=== PATIENT | female | born 1955 | race Caucasian/White ===

== ENCOUNTER 2023-01-15 09:51 | Outpatient (CLI) | payer MEDICARE, SELFPAY ==
[2023-01-15 11:06] LABS: EXAGEN MAILED SPECIMEN
[2023-01-15 12:19] LABS: Absolute Lymphocyte Count 2.21 X10^3/uL (0.83-4.51); Absolute Neutrophil Count 3.4 X10^3/uL (2.0-7.7); Basophil# 0.05 X10^3/uL; Basophil% 0.8 % (0-1); Eosinophil# 0.18 X10^3/uL; Eosinophils% 2.8 % (0-5); Hematocrit 40.5 % (37-47); Lymphocyte # 2.21 X10^3/ul (0.83-4.51); Lymphocyte % 34.2 % (19-41); Mean Corp Hgb Conc 32.1 g/dL (32-36); Mean Corpuscular Hgb 29.5 pg (27.0-32.0); Mean Platelet Vol. 10.6 fl (6.2-12.0); Monocyte# 0.61 X10^3/uL; Monocyte% 9.4 % (0-10); NRBC Flagged by Analyzer 0 % (0-5); Neutrophil # 3.38 X10^3/uL (2.7-7.7); Neutrophil % 52.3 % (47-70); Platelet Count 283 K/mm3 (150-450); RBC Distribution Width CV 13.8 % (11.6-14.6); RBC Distribution Width SD 47.4 fl (35.1-43.9); White Blood Count 6.5 K/mm3 (4.4-11.0)
[2023-01-15 12:24] LABS: Color, Urine Yellow (Yellow); Glucose, Dipstick Normal (Normal); Ketone-Dipstick Negative (Negative); Leukocyte Esterase-Dipstick Negative /ul (Negative); Nitrite-Dipstick Negative (Negative); Occult Blood-Urine 25 /ul (Negative); Protein-Dipstick 15 mg/dl (Negative); Specific Gravity, Urine 1.015 (1.002-1.030); Urine Bilirubin Dipstick Negative (Negative); Urine Clarity Sl. Cloudy (Clear); Urine Urobilinogen Normal (Normal)
[2023-01-15 12:38] LABS: Partial Thromboplast Time 29.3 Seconds (24.1-36.2)
[2023-01-15 12:42] LABS: International Normalized Ratio 0.9; Prothrombin Time (Protime)PT. 11.9 SECONDS (11.7-14.9)
[2023-01-15 12:58] LABS: ALB/GLOB Ratio 0.9 RATIO (0.9-2.4); AST(SGOT) 19 U/L (15-37); Alanine Aminotransfer ALT/SGPT 27 U/L (13-56); Albumin, Serum 3.4 g/dL (3.2-5.0); Alkaline Phosphatase 151 U/L (45-117); Anion Gap 5 (5-15); BUN 15 mg/dL (7-18); BUN/Creat Ratio 13.5 RATIO (10-20); Calcium,Total 9.7 mg/dL (8.5-10.1); Chloride 107 mmol/L (98-107); Creatinine, Serum 1.11 mg/dL (0.55-1.02); EST Glomerular Filtration Rate 52 mL/min (>60); Est Glom Filt Rate - Afr Amer 63 mL/min (>60); Globulin 3.7 g/dL (2.2-4.2); Glucose 102 mg/dL (74-106); Potassium 3.9 mmol/L (3.5-5.1); Protein, Total 7.1 g/dL (6.4-8.2); Sodium Level 141 mmol/L (136-145)
[2023-01-15 13:00] LABS: Protein, Urine (Random) 14.5 mg/dL (<11.9); Protein:Creat Ratio 116 mg/g CRE (0-200)
[2023-01-15 13:26] LABS: Hepatitis B Surface Antibody Non-Reactive; Hepatitis B Surface Antigen Non-Reactive (Nonreactive); Hepatitis C Antibody Non-Reactive (Nonreactive)
[2023-01-17 01:06] LABS: Thrombin Time 16.6 sec (0.0-23.0)
[2023-01-17 03:07] LABS: Dilute Russell Viper Venom 40.5 sec (0.0-47.0); Hexagonal Phase Phospholipid 5 sec (0-11); Interpretation Comment: (.); Thrombin Time 16.3 sec (0.0-23.0); dPT Confirm Ratio 1.14 Ratio (0.00-1.34)
== END 2023-01-15 23:59 | disposition home or self-care (01) ==
PROVIDERS: PCP Nurse Practitioner Primary Care; Referring Provider Internal Medicine Rheumatology; Visit Provider Internal Medicine Rheumatology
DX: M06.4 Inflammatory polyarthropathy (principal); R76.8 Other specified abnormal immunological findings in serum
CPT/HCPCS: 36415; 80053; 81002; 82570; 84156; 85025; 85598; 85610; 85670; 85730; 86706; 86803; 87340

== ENCOUNTER → 2023-04-27 | Outpatient (CLI) | payer MEDICARE, SELFPAY ==
[2023-04-27 12:22] LABS: Absolute Lymphocyte Count 2.72 X10^3/uL (0.83-4.51); Absolute Neutrophil Count 2.6 X10^3/uL (2.0-7.7); Basophil# 0.04 X10^3/uL; Basophil% 0.6 % (0-1); Eosinophil# 0.15 X10^3/uL; Eosinophils% 2.4 % (0-5); Hemoglobin 13.1 g/dL (12.0-15.0); Lymphocyte # 2.72 X10^3/ul (0.83-4.51); Lymphocyte % 44.1 % (19-41); Mean Corpuscular Hgb 29.4 pg (27.0-32.0); Mean Corpuscular Volume 92.1 fL (81-99); Mean Platelet Vol. 11.4 fl (6.2-12.0); Monocyte# 0.61 X10^3/uL; Monocyte% 9.9 % (0-10); NRBC Flagged by Analyzer 0 % (0-5); Neutrophil # 2.63 X10^3/uL (2.7-7.7); Neutrophil % 42.7 % (47-70); Platelet Count 246 K/mm3 (150-450); RBC Distribution Width CV 14.1 % (11.6-14.6); RBC Distribution Width SD 47.5 fl (35.1-43.9); Red Blood Count 4.45 M/mm3 (4.2-5.4); White Blood Count 6.2 K/mm3 (4.4-11.0)
[2023-04-27 13:16] LABS: AST(SGOT) 16 U/L (15-37); Alanine Aminotransfer ALT/SGPT 29 U/L (13-56); Albumin, Serum 3.5 g/dL (3.2-5.0); Alkaline Phosphatase 140 U/L (45-117); Anion Gap 4 (5-15); BUN 14 mg/dL (7-18); Chloride 108 mmol/L (98-107); Creatinine, Serum 0.94 mg/dL (0.55-1.02); EST Glomerular Filtration Rate 63 mL/min (>60); Est Glom Filt Rate - Afr Amer 77 mL/min (>60); Globulin 3.5 g/dL (2.2-4.2); Glucose 79 mg/dL (74-106); Potassium 3.7 mmol/L (3.5-5.1); Sodium Level 140 mmol/L (136-145)
== END | disposition home or self-care (01) ==
LOC: MTLAB 10:23
PROVIDERS: PCP Nurse Practitioner Primary Care; Referring Provider Internal Medicine Rheumatology; Visit Provider Internal Medicine Rheumatology
DX: M06.4 Inflammatory polyarthropathy (principal); R76.8 Other specified abnormal immunological findings in serum
CPT/HCPCS: 36415; 80053; 85025

== ENCOUNTER → 2023-10-24 | Outpatient (CLI) | payer MEDICARE, SELFPAY ==
[2023-10-24 15:16] LABS: Absolute Lymphocyte Count 2.62 X10^3/uL (0.83-4.51); Absolute Neutrophil Count 2.5 X10^3/uL (2.0-7.7); Basophil# 0.04 X10^3/uL; Basophil% 0.7 % (0-1); Eosinophil# 0.06 X10^3/uL; Hematocrit 40.3 % (37-47); Lymphocyte # 2.62 X10^3/ul (0.83-4.51); Mean Corp Hgb Conc 32.3 g/dL (32-36); Mean Corpuscular Hgb 29.3 pg (27.0-32.0); Mean Platelet Vol. 11.6 fl (6.2-12.0); Monocyte% 11.7 % (0-10); NRBC Flagged by Analyzer 0 % (0-5); Neutrophil # 2.52 X10^3/uL (2.7-7.7); Neutrophil % 42.3 % (47-70); Platelet Count 224 K/mm3 (150-450); RBC Distribution Width CV 13.6 % (11.6-14.6); Red Blood Count 4.43 M/mm3 (4.2-5.4)
[2023-10-24 15:53] LABS: AST(SGOT) 20 U/L (15-37); Alanine Aminotransfer ALT/SGPT 26 U/L (13-56); Albumin, Serum 3.3 g/dL (3.2-5.0); Alkaline Phosphatase 127 U/L (45-117); Anion Gap 6 (5-15); BUN 15 mg/dL (7-18); BUN/Creat Ratio 15.2 RATIO (10-20); Calcium,Total 8.7 mg/dL (8.5-10.1); Chloride 106 mmol/L (98-107); Cholesterol 152 mg/dL (200); Creatinine, Serum 0.99 mg/dL (0.55-1.02); EST Glomerular Filtration Rate 59 mL/min (>60); Est Glom Filt Rate - Afr Amer 72 mL/min (>60); Globulin 3.2 g/dL (2.2-4.2); Glucose 80 mg/dL (74-106); High Density Lipoprotein 86 mg/dL; Potassium 3.5 mmol/L (3.5-5.1); Protein, Total 6.5 g/dL (6.4-8.2); Sodium Level 140 mmol/L (136-145); Triglycerides 113 mg/dL; Very Low Density Lipoprotein 23 mg/dL (5-40)
== END | disposition home or self-care (01) ==
PROVIDERS: PCP Nurse Practitioner Primary Care; Referring Provider Internal Medicine Rheumatology; Visit Provider Internal Medicine Rheumatology
DX: M06.4 Inflammatory polyarthropathy (principal); R76.8 Other specified abnormal immunological findings in serum; Z79.899 Other long term (current) drug therapy; Z13.220 Encounter for screening for lipoid disorders
CPT/HCPCS: 36415; 80053; 80061; 85025

== ENCOUNTER → 2024-05-21 | Outpatient (CLI) | payer MEDICARE, SELFPAY ==
[2024-05-21 12:15] LABS: Absolute Lymphocyte Count 2.22 X10^3/uL (0.83-4.51); Absolute Neutrophil Count 2.5 X10^3/uL (2.0-7.7); Basophil# 0.04 X10^3/uL; Basophil% 0.7 % (0-1); Eosinophil# 0.11 X10^3/uL; Hematocrit 39.7 % (37-47); Lymphocyte # 2.22 X10^3/ul (0.83-4.51); Lymphocyte % 40.7 % (19-41); Mean Corp Hgb Conc 32.7 g/dL (32-36); Mean Corpuscular Hgb 29.7 pg (27.0-32.0); Mean Corpuscular Volume 90.6 fL (81-99); Mean Platelet Vol. 11.2 fl (6.2-12.0); Monocyte# 0.61 X10^3/uL; Monocyte% 11.2 % (0-10); NRBC Flagged by Analyzer 0 % (0-5); Neutrophil # 2.46 X10^3/uL (2.7-7.7); Platelet Count 205 K/mm3 (150-450); RBC Distribution Width CV 13.1 % (11.6-14.6); RBC Distribution Width SD 44.2 fl (35.1-43.9); Red Blood Count 4.38 M/mm3 (4.2-5.4); White Blood Count 5.5 K/mm3 (4.4-11.0)
[2024-05-21 13:20] LABS: ALB/GLOB Ratio 1.1 RATIO (0.9-2.4); AST(SGOT) 17 U/L (15-37); Alanine Aminotransfer ALT/SGPT 23 U/L (13-56); Albumin, Serum 3.4 g/dL (3.2-5.0); Alkaline Phosphatase 133 U/L (45-117); Anion Gap 7 (5-15); BUN 13 mg/dL (7-18); BUN/Creat Ratio 13.3 RATIO (10-20); Calcium,Total 9.4 mg/dL (8.5-10.1); Chloride 105 mmol/L (98-107); Creatinine, Serum 0.98 mg/dL (0.55-1.02); EST Glomerular Filtration Rate 60 mL/min (>60); Est Glom Filt Rate - Afr Amer 72 mL/min (>60); Globulin 3.2 g/dL (2.2-4.2); Glucose 76 mg/dL (74-106); Potassium 4.3 mmol/L (3.5-5.1); Protein, Total 6.6 g/dL (6.4-8.2); Sodium Level 139 mmol/L (136-145)
== END | disposition home or self-care (01) ==
LOC: MTLAB 08:49
PROVIDERS: PCP Nurse Practitioner Primary Care; Referring Provider Internal Medicine Rheumatology; Visit Provider Internal Medicine Rheumatology
DX: M06.4 Inflammatory polyarthropathy (principal); R76.8 Other specified abnormal immunological findings in serum; Z79.899 Other long term (current) drug therapy
CPT/HCPCS: 36415; 80053; 85025

== ENCOUNTER → 2024-11-10 | Outpatient (CLI) | payer MEDICARE, SELFPAY ==
[2024-11-10 18:18] LABS: Absolute Neutrophil Count 2.7 X10^3/uL (2.0-7.7); Basophil# 0.05 X10^3/uL; Basophil% 0.9 % (0-1); Eosinophils% 1.7 % (0-5); Hematocrit 39.7 % (37-47); Hemoglobin 13.4 g/dL (12.0-15.0); Mean Corp Hgb Conc 33.8 g/dL (32-36); Mean Platelet Vol. 11.3 fl (6.2-12.0); Monocyte% 12.1 % (0-10); NRBC Flagged by Analyzer 0 % (0-5); Neutrophil # 2.72 X10^3/uL (2.7-7.7); Platelet Count 229 K/mm3 (150-450); RBC Distribution Width CV 13.7 % (11.6-14.6); RBC Distribution Width SD 44.7 fl (35.1-43.9); Red Blood Count 4.46 M/mm3 (4.2-5.4); White Blood Count 5.8 K/mm3 (4.4-11.0)
[2024-11-10 19:01] LABS: ALB/GLOB Ratio 1.6 RATIO (0.9-2.4); AST(SGOT) 24 U/L (<=31); Alanine Aminotransfer ALT/SGPT 21 U/L (<=34); Albumin, Serum 3.8 g/dL (3.4-4.8); Alkaline Phosphatase 122 U/L (35-104); Anion Gap 11 (5-15); BUN 15 mg/dL (4-19); BUN/Creat Ratio 13.5 RATIO (10-20); Carbon Dioxide 25.1 mmol/L (21.0-32.0); Chloride 105 mmol/L (98-108); Creatinine, Serum 1.14 mg/dL (0.70-1.20); EST Glomerular Filtration Rate 52 (>60); Globulin 2.4 g/dL (2.2-4.2); Glucose 79 mg/dL (70-99); Potassium 3.9 mmol/L (3.3-5.1); Protein, Total 6.2 g/dL (5.9-8.4); Sodium Level 141 mmol/L (133-145); Total Bilirubin 0.87 mg/dL (0.00-1.30)
== END | disposition home or self-care (01) ==
LOC: MTLAB 15:17
PROVIDERS: PCP Nurse Practitioner Primary Care; Referring Provider Internal Medicine Rheumatology; Visit Provider Internal Medicine Rheumatology
DX: M06.4 Inflammatory polyarthropathy (principal); R76.8 Other specified abnormal immunological findings in serum; Z79.899 Other long term (current) drug therapy
CPT/HCPCS: 36415; 80053; 85025

== ENCOUNTER → 2024-11-19 | Outpatient (CLI) | payer MEDICARE, SELFPAY ==
[2024-11-19 16:37] LABS: Cholesterol 220 mg/dL (<=200); High Density Lipoprotein 95 mg/dL; Low Density Lipoprotein Calc. 109 mg/dL; Triglycerides 79 mg/dL; Very Low Density Lipoprotein 16 mg/dL (5-40); cholesterol:hdl ratio screen 2.32
== END | disposition home or self-care (01) ==
LOC: MTLAB 11:33
PROVIDERS: PCP Nurse Practitioner Primary Care; Referring Provider Nurse Practitioner Primary Care; Visit Provider Nurse Practitioner Primary Care
DX: E78.5 Hyperlipidemia, unspecified (principal)
CPT/HCPCS: 36415; 80061

== ENCOUNTER → 2025-05-27 | Outpatient (CLI) | payer MEDICARE, SELFPAY ==
--- OUTSIDE RECORDS SUMMARY | 2025-05-27 09:52 | XMS RPT_ITS | CCD ---
Author Organization [facility] Care Team Providers Care Diazo Technician Name Role Phone LOGAN SCOOP FILLER-ENTERPRISE RESOURCE ANALYST, ALICIA S Primary Care Physicia n Alicia Faustin S Primary Care Provider [phone] LOGAN SCOOP FILLER-ENTERPRISE RESOURCE ANALYST, ALICIA S Attending Unava ilable LOGAN SCOOP FILLER-ENTERPRISE RESOURCE ANALYST, ALICIA S Primary Care Unava ilable LOGAN SCOOP FILLER-ENTERPRISE RESOURCE ANALYST, ALICIA S Attending Unava ilable LOGAN SCOOP FILLER-ENTERPRISE RESOURCE ANALYST, ALICIA S Primary Care Unava ilable VIVIANA NARVAEZ Attending Unavailable LOGAN SCOOP FILLER-ENTERPRISE RESOURCE ANALYST, ALICIA S Primary Care Unava ilable MAST SCOOP FILLER-ENTERPRISE RESOURCE ANALYST, ROBB Attending Unavailabl e LOGAN SCOOP FILLER-ENTERPRISE RESOURCE ANALYST, ALICIA S Primary Care Unava ilable LOGAN SCOOP FILLER-ENTERPRISE RESOURCE ANALYST, ALICIA S Attending Unava ilable LOGAN SCOOP FILLER-ENTERPRISE RESOURCE ANALYST, ALICIA S Primary Care Unava ilable Logan ENTERPRISE RESOURCE ANALYST, Alicia S Primary Care Provider [phone] SELF Referring Unavailable LOGANNINA BYRNESICA S Primary Care Unavailable FAWAD GARCIA Attending Unavailable FAWAD GARCIA Referring Unavailable LOGAN, ALICIA S Primary Care Unavailable [place] STEAM ROLLER OPERATOR-C, Alicia Primary Care Provider [phone] Bassem RIVAS, Dr. Underwood Attending Provider Dr. Yasmine Luevano MD Referring Provider Yasmine Luevano Referring Unavailable Yasmine Luevano Attending Unavailable Alicia Faustin Primary Care Unavailable Yasmine Luevano Referring Unavailable Yasmine Luevano Attending Unavailable Alicia Faustin Primary Care Unavailable Alicia Faustin Referring Unavailable Alicia Faustin Attending Unavailable Alicia Faustin Primary Care Unavailable LOGAN SCOOP FILLER-ENTERPRISE RESOURCE ANALYST, ALICIA S Primary Care Unava ilable LOGAN SCOOP FILLER-ENTERPRISE RESOURCE ANALYST, ALICIA S Attending Merlin FAUSTIN SCOOP FILLER-ENTERPRISE RESOURCE ANALYST, ALICIA S Primary Care Unava ilable MIGUEL SCOOP FILLER-ENTERPRISE RESOURCE ANALYST, ANITA Attending Unavailab le Allergies Allergy Classification Reported Allergen(s) Allergy Type Date of Onset Reaction(s) Facility (10 sources) Lidocaine / Oxytetracycline; Translations: [lidocaine-oxytet racycline] Drug Allergy [facility] (5 sources) Oxytetracycline; Translations: [OXYTETRACYCLINE] Drug Allergy 05-13-2022 Unknown [facility] (5 sources) Oxytetracycline-L idocaine; Translations: [OXYTETRACYCLINE- LIDOCAINE] Drug Allergy 05-13-2022 Unknown [facility] Medications Current Medications Medication Drug Class(es) Dates Sig (Normalized) Sig (Original) albuterol MDI (90 mcg/inh) CFC free inhalation aerosol (6 sources) Start: 10-16-2023 take 2 puff(s) by inhalation every four hours as needed for wheezing albuterol MDI (90 mcg/inh) CFC free inhalation aerosol 2 puff(s), Inhalation, q4h, PRN as needed for wheezing, # 18 gram(s), 11 Refill(s), [id number], 161.5, cm, 09/27/23 10:26:00 EST, Height, kg, 09/27/23 10:26:00 EST, Dosing Weight Start Date: 10/16/23 Status: Ordered Medication Dispense Status: Completed Quantity: 18.0 Unit: g Total Allowed Fills: 12 Fills Dispensed: 0 Start: 10-16-2023 take 2 puff(s) by in halation every four hours as needed for wheezing albuterol MDI (90 mcg/inh) CFC free inhalation aerosol 2 puff(s), Inhalation, q4h, PRN as needed for wheezing, # 18 gram(s), 11 Refill(s), [id number], 161.5, cm, 09/27/23 10:26:00 EST, Height, kg, 09/27/23 10:26:00 EST, Dosing Weight Start Date: 10/16/23 Status: Ordered ALPRAZolam 0.25 mg oral tablet (11 sources) Benzodiazepine Start: 02-01-2022 ALPRAZolam 0.2 5 mg oral tablet PRN as needed for anxiety, 0 Refill(s), 115.1 Start Date: 09/18/22 Status: Ordered Medication Dispense Status: Completed Total Allowed Fills: 1 Fills Dispensed: 0 Comment on above: Take 0.25 mg by mout h three times daily as needed. amLODIPine 5 mg oral tablet (14 sources) Dihydropyridine Calcium Channel Debbi Start: 04-09-2017 amLODIPine 5 mg oral tablet Dose : 5 mg = 1 tab(s), Oral, qDay, TAKE ONE TABLET BY MOUTH EVERY DAY, # 90 tab(s), 3 Refill(s), [facility]: [id number], 161, cm, 09/24/24 9:50:00 EST, Height, kg, 09/24/24 9:50:00 EST, Dosing Weight Start Date: 09/24/24 Status: Ordered Medication Dispense Status: Completed Quantity: 90.0 Unit: tab(s) Total Allowed Fills: 4 Fills Dispensed: 0 Comment on above: Take 5 mg by mouth. aspirin 81 mg delayed release oral tablet (4 sources) Platelet Aggregation Inhibitor, Nonsteroidal Anti-inflammatory Drug aspirin, enteric coated (ASPIRIN, ENTERIC COATED) 81 mg EC tablet Take 81 mg by mouth. Active Comment on above: Take 81 mg by mouth. atorvastatin 40 mg oral tablet (14 sources) HMG-CoA Reductase Inhibitor Start: 11-06-2023 End: 09-19-2025 atorvastatin 40 mg oral tablet Dose : 40 mg = 1 tab(s), Oral, qDay, take 1 tablet by mouth at bedtime, # 100 tab(s), 3 Refill(s), [facility]: [id number], 161, cm, 09/24/24 9:50:00 EST, Height, kg, 09/24/24 9:50:00 EST, Dosing Weight Start Date: 09/24/24 Stop Date: 09/19/25 Status: Ordered Medication Dispense Status: Completed Quantity: 100.0 Unit: tab(s) Total Allowed Fills: 4 Fills Dispensed: 0 Start: 01-17-2022 End: 01-12-2023 atorvastatin 40 mg oral tabl et Dose : 40 mg = 1 tab(s), Oral, qDay, take 1 tablet by mouth at bedtime, # 90 tab(s), 3 Refill(s), [facility], 161, cm, 12/07/21 11:02:00 EDT, Height, kg, 12/07/21 11:02:00 EDT, Dosing Weight Start Date: 01/17/22 Stop Date: 01/12/23 Status: Ordered Start: 04-09-2017 atorvastatin ( LIPITOR) 80 mg tablet 04/09/2017 Active azithromycin 250 mg oral tablet (2 sources) Macrolide Antimicrobial Start: 05-09-2022 End: 05-14-2022 azithromycin (ZITHROMAX) 250 mg tablet Take by mouth. 0 05/09/2022 05/14/2022 Active Start: 05-09-2022 End: 05-14-2022 Zithromax Z-Henry 250 mg oral tablet Take two (2) tablets day 1-then one (1) tablet, Oral, Daily, X 5 day(s), # 6 tab(s), 0 Refill(s), 05/14/22 13:56:00 EDT, [facility]: [facility], 160, cm, 05/09/22 13:30:00 EDT, Height, 113.4 Start Date: 05/09/22 Stop Date: 05/14/22 Status: Ordered Comment on above: Take by mouth. benzonatate 100 mg oral capsule (4 sources) Non-narcotic Antitussive Start: 05-15-2025 End: 05-22-2025 benzonatate 100 mg oral capsule Dose : 100 mg = 1 cap(s), Oral, TID, PRN as needed for cough, X 7 day(s), # 21 cap(s), 0 Refill(s), 05/22/25 2:46:00 PM EDT, [facility]: [facility], Viral URI Cough, 161, cm, 05/15/25 14:21:00 EDT, Height, kg, 05/15/25 14:21:00 EDT, Dosing Weight Start Date: 05/15/25 Stop Date: 05/22/25 Status: Ordered Medication Dispense Status: Completed Quantity: 21.0 Unit: cap(s) Total Allowed Fills: 1 Fills Dispensed: 0 Indications: Cough, unspecified; Acute upper respiratory infection, unspecified; Start: 05-09-2022 End: 11-04-2024 take 1 capsule by mouth three times daily as needed for cough benzonatate (TESSALON PERLE) 100 mg capsule TAKE ONE CAPSULE BY MOUTH THREE TIMES A DAY NEEDED FOR COUGH FOR SEVEN DAYS 05/09/2022 11/04/2024 Discontinued Comment on above: TAKE ONE CAPSULE BY MOUTH THREE TIMES A DAY NEEDED FOR COUGH FOR SEVEN DAYS 24 hr buPROPion hydrochloride 300 mg extended release oral tablet (17 sources) Aminoketone Start: take 1 tablet by mouth every hour, then take 1 tablet by mouth once daily buPROPion 300 mg/24 hours (XL) oral tablet, extended release Dose : 300 mg = 1 tab(s), Oral, qDay, # 90 tab(s), 3 Refill(s), [id number], 161, cm, 09/24/24 9:50:00 EST, Height, kg, 09/24/24 9:50:00 EST, Dosing Weight Start Date: 09/24/24 Status: Ordered Medication Dispense Status: Completed Quantity: 90.0 Unit: tab(s) Total Allowed Fills: 4 Fills Dispensed: 0 Start: 08-08-2023 take 1 tablet by destiny th every hour, then take 1 tablet by mouth once daily buPROPion 300 mg/24 hours (XL) oral tablet, extended release Dose : 300 mg = 1 tab(s), Oral, qDay, # 90 tab(s), 3 Refill(s), [id number], 161.5, cm, 08/08/23 13:37:00 EST, Height, kg, 08/08/23 13:37:00 EST, Dosing Weight Start Date: 08/08/23 Status: Ordered Start: 12-07-2021 take 1 tablet by destiny th every hour buPROPion 150 mg/24 hours (XL) oral tablet, extended release Dose : 150 mg = 1 tab(s), Oral, q24h, take in addition to 300mg tablets, # 30 tab(s), 11 Refill(s), [facility]: [id number], 161, cm, 12/07/21 11:02:00 EDT, Height Start Date: 12/07/21 Status: Ordered Start: 11-29-2021 take 1 tablet by destiny th every twenty-four hours buPROPion XL (WELLBUTRIN XL) 150 mg 24 hr tablet Take by mouth. 11/29/2021 Active Start: 11-29-2021 take 1 tablet by destiny th every hour, then take 1 tablet by mouth once daily buPROPion 300 mg/24 hours (XL) oral tablet, extended release Dose : 300 mg = 1 tab(s), Oral, qDay, # 90 tab(s), 3 Refill(s), [facility]: [id number], 161, cm, 09/14/21 11:01:00 EST, Height, kg, 09/14/21 11:01:00 EST, Dosing Weight Start Date: 11/29/21 Status: Ordered Comment on above: Take by mouth. calcium carbonate 1500 mg oral tablet (14 sources) Start: 02-09-2021 calcium carbon ate (CALTRATE) 600 mg calcium (1,500 mg) tab Take 600 mg by mouth. 02/09/2021 Active Start: 02-09-2021 calcium (as ca rbonate) 600 mg oral tablet Dose : 600 mg = 1 tab(s), Oral, BIDM, 0 Refill(s) Start Date: 02/09/21 Status: Ordered Medication Dispense Status: Completed Total Allowed Fills: 1 Fills Dispensed: 0 Comment on above: Take 600 mg by mouth . Cholecalciferol (10 sources) Vitamin D Start: 02-09-2021 take 1 capsule by mouth once daily Vitamin D (3) 45 units oral capsule qDay, 0 Refill(s) Start Date: 02/09/21 Status: Ordered Medication Dispense Status: Completed Total Allowed Fills: 1 Fills Dispensed: 0 Start: 02-09-2021 Vitamin D (3) 45 units oral capsule qDay, 0 Refill(s) Start Date: 02/09/21 Status: Ordered dicyclomine hydrochloride 20 mg oral tablet (8 sources) Anticholinergic Start: 02-20-2022 End: 03-22-2022 take 1 tablet by mouth four times daily as needed dicyclomine (BENTYL) 20 mg tablet TAKE ONE TABLET BY MOUTH FOUR TIMES A DAY NEEDED FOR ABDOMINAL DISCOMFORT FOR 30 DAYS 02/21/2022 Active Comment on above: TAKE ONE TABLET BY M OUT FOUR TIMES A DAY NEEDED FOR ABDOMINAL DISCOMFORT FOR 30 DAYS DME MISCellaneous (10 sources) Start: 12-10-2020 DME MISCellaneous See Instructions, SPACER CHAMBER, # 1 EA, 0 Refill(s), [facility]: [id number], 160, cm, 12/10/20 10:47:00 EDT, Height, 109.1, kg, 12/10/20 10:47:00 EDT, Dosing Weight Start Date: 12/10/20 Status: Ordered Medication Dispense Status: Completed Quantity: 1.0 Unit: EA Total Allowed Fills: 1 Fills Dispensed: 0 Start: 12-10-2020 DME MISCellane ous See Instructions, SPACER CHAMBER, # 1 EA, 0 Refill(s), [facility]: [id number], 160, cm, 12/10/20 10:47:00 EDT, Height, 109.1, kg, 12/10/20 10:47:00 EDT, Dosing Weight Start Date: 12/10/20 Status: Ordered furosemide 20 mg oral tablet (12 sources) Loop Diuretic Start: 02-04-2021 furosemide (LASIX) 20 mg tablet Take 20 mg by mouth. 02/04/2021 Active Comment on above: Take 20 mg by mouth. hydroxychloroquine sulfate 200 mg oral tablet (9 sources) Antimalarial, Antirheumatic Agent Start: 08-25-2024 take 2 tablets by mouth once daily hydrOXYchloroQUINE (PLAQUENIL) 200 mg tablet Take 2 tablets by mouth once daily. 08/25/2024 Active Start: 08-08-2023 hydroxychloroq uine 200 mg oral tablet Dose : 400 mg = 2 tab(s), Oral, qHS, 0 Refill(s) Start Date: 08/08/23 Status: Ordered Medication Dispense Status: Completed Total Allowed Fills: 1 Fills Dispensed: 0 losartan potassium 100 mg oral tablet (13 sources) Angiotensin 2 Receptor Debbi Start: 09-24-2024 End: 09-19-2025 losartan 100 mg oral tablet Dose : 100 mg = 1 tab(s), Oral, qDay, TAKE ONE TABLET BY MOUTH EVERY DAY, # 90 tab(s), 3 Refill(s), [facility]: [id number], 161, cm, 09/24/24 9:50:00 EST, Height, kg, 09/24/24 9:50:00 EST, Dosing Weight Start Date: 09/24/24 Stop Date: 09/19/25 Status: Ordered Medication Dispense Status: Completed Quantity: 90.0 Unit: tab(s) Total Allowed Fills: 4 Fills Dispensed: 0 Start: 08-10-2021 End: 08-02-2024 losartan (COZAAR) 100 mg tab let Take 100 mg by mouth. 08/10/2021 Active Comment on above: Take 100 mg by mouth . meloxicam 7.5 mg oral tablet (1 source) Nonsteroidal Anti-inflammatory Drug Start: 11-05-19 End: 11-15-19 take 1 tablet by mouth once daily meloxicam (MOBIC) 7.5 mg tablet Indications: Acute pain of right knee , Primary osteoarthritis of right knee Take 1 tablet by mouth once daily for 10 days. 10 tablet 11/04/2024 11/14/2024 Active Multivitamin preparation (10 sources) Start: 03-13-20 take 1 tablet by mouth once daily Multivitamin Dose = 1 tab(s), Oral, Daily, 0 Refill(s) Start Date: 03/13/19 Status: Ordered Medication Dispense Status: Completed Total Allowed Fills: 1 Fills Dispensed: 0 Start: 03-13-2019 take 1 tablet by destiny th once daily Multivitamin Dose = 1 tab(s), Oral, Daily, 0 Refill(s) Start Date: 03/13/19 Status: Ordered Ppmskuadqiupi-Fdkgxsrt-Sudpa n (MULTIVITAMIN 50 PLUS) tab (4 sources) Start: 03-13-2019 Zovazcwmkfdyh-Wsflvduk-Alenq n (MULTIVITAMIN 50 PLUS) tab Dose = 1 tab(s), Oral, Daily, 0 Refill(s) 03/13/2019 Active Start: 03-13-2019 Multivitamins- Minerals-Lutein (MULTIVITAMIN 50 PLUS) tab Dose = 1 tab(s), Oral, Daily, 0 Refill(s) 0 03/13/2019 Active Comment on above: Dose = 1 tab(s), Oral, Daily, 0 Refill(s) omeprazole 20 mg delayed release oral capsule (14 sources) Proton Pump Inhibitor Start: 08-10-2024 End: 08-05-2025 omeprazole 20 mg oral delayed release capsule Dose : 20 mg = 1 cap(s), Oral, qDay, TAKE ONE CAPSULE BY MOUTH EVERY DAY, # 90 cap(s), 3 Refill(s), [facility]: [id number], 161, cm, 07/07/24 10:31:00 EST, Height, kg, 07/07/24 10:31:00 EST, Dosing Weight Start Date: 08/10/24 Stop Date: 08/05/25 Status: Ordered Medication Dispense Status: Completed Quantity: 90.0 Unit: cap(s) Total Allowed Fills: 4 Fills Dispensed: 0 Start: 08-10-2021 End: 08-02-2024 omeprazole (PRILOSEC) 20 mg capsule 05/12/2022 Active predniSONE 10 mg oral tablet (7 sources) Start: 12-22-2023 take 1 tablet by mouth once daily as needed predniSONE 10 mg oral tablet TAKE ONE TABLET BY MOUTH EVERY DAY NEEDED. TAKE 3-5 DAYS WITH FLARE Start Date: 12/22/23 Status: Ordered Medication Dispense Status: Completed Total Allowed Fills: 1 Fills Dispensed: 0 Start: 05-09-2022 End: 05-14-2022 predniSONE (DELTASONE) 20 mg tablet Take 20 mg by mouth. 0 05/09/2022 05/14/2022 Active Comment on above: Take 20 mg by mouth. Completed/Discontinued Medications Medication Drug Class(es) Dates Sig (Normalized) Sig (Original) 200 actuat albuterol 0.09 mg/actuat dry powder inhaler (7 sources) beta2-Adrenergic Agonist Start: 05-09-2022 End: 06-08-2022 take 2 puff(s) by inhalation every four hours as needed for wheezing albuterol 90 mcg/inh inhalation powder 2 puff(s), Inhalation, q4h, PRN Shortness of breath or wheezing, use with spacer chamber PHARMACY PLEASE DISPENSE, # 1 EA, 0 Refill(s), [id number], 160, cm, 05/09/22 13:30:00 EDT, Height, kg, 05/09/22 13:30:00 EDT, Dosing Weight Start Date: 05/09/22 Stop Date: 06/08/22 Status: Ordered Start: 12-10-2020 End: 06-08-2022 take 2 puff(s) by inhalation every four hours as needed for wheezing albuterol sulfate 90 mcg/actuation breath activated powder inhaler 2 puff(s), Inhalation, q4h, PRN Shortness of breath or wheezing, use with spacer chamber PHARMACY PLEASE DISPENSE, # 1 EA, 0 Refill(s), [id number], 160, cm, 05/09/22 13:30:00 EDT, Height, kg, 05/09/22 13:30:00 EDT, Dosing Weight 12/10/2020 Active Start: 12-10-2020 End: 01-09-2021 take 2 puff(s) by inhalation every four hours as needed for wheezing albuterol 90 mcg/inh inhalation powder 2 puff(s), Inhalation, q4h, PRN Shortness of breath or wheezing, use with spacer chamber PHARMACY PLEASE DISPENSE, # 1 EA, 0 Refill(s), [facility]: [id number], 160, cm, 12/10/20 10:47:00 EDT, Height, kg, 12/10/20 10:47:00 EDT, Dosing Weight Start Date: 12/10/20 Stop Date: 01/09/21 Status: Ordered Comment on above: 2 puff(s), Inhalation, q4h, PRN Shortness of breath or wheezing, use with spacer chamber PHARMACY PLEASE DISPENSE, # 1 EA, 0 Refill(s), [id number], 160, cm, 05/09/22 13:30:00 EDT, Height, kg, 05/09/22 13:30:00 EDT, Dosing Weight clopidogrel 75 mg oral tablet (2 sources) P2Y12 Platelet Inhibitor Start: 017 End: 025 clopidogrel (PLAVIX) 75 mg tablet 03/21/2017 11/04/2024 Discontinued (Course of therapy completed) sulfamethoxazole 800 mg / trimethoprim 160 mg oral tablet (1 source) Dihydrofolate Reductase Inhibitor Antibacterial, Sulfonamide Antimicrobial Start: End: take 1 tablet by mouth twice daily sulfamethoxazole-tri methoprim 800 mg-160 mg oral tablet Dose = 1 tab(s), Oral, BID, # 20 tab(s), 0 Refill(s), 106 Start Date: 12/22/23 Stop Date: 01/01/24 Status: Ordered triamcinolone acetonide 5 mg/ml topical cream (3 sources) Corticosteroid Start: End: triamcinolone acetonide (KENALOG) 0.5 % cream APPLY 1 APPLICATION TOPICALLY TWICE DAILY FOR 14 DAYS 03/14/2022 11/04/2024 Discontinued Start: 03-14-2022 End: 03-28-2022 triamcinolone 0.5% topical c ream Apply 1 yosvany, Topical, BID, X 14 day(s), # 60 gram(s), 0 Refill(s), [facility]: [id number], Cream, 160, cm, 03/14/22 11:31:00 EDT, Height, 112.9 Start Date: 03/14/22 Stop Date: 03/28/22 Status: Ordered Comment on above: APPLY 1 APPLICATION TOPICALLY TWICE DAILY FOR 14 DAYS Problems Active Problems Problem Classification Problem Date Documented Date Episodic/Chronic Allergic reactions (5 sources) Contact dermatitis; Translations: [Inflammatory dermatosis] 03-14-2022 Episodic Anxiety disorders (8 sources) Anxiety 11-03-2020 Chronic Disorders of lipid metabolism (3 sources) Hyperlipidemia, unspecified; Translations: [Hyperlipidemia] Onset: 11-26-2024 09-24-2024 Chronic Esophageal disorders (6 sources) Gastroesophageal reflux disease 08-09-2023 Chronic Essential hypertension (15 sources) Hypertensive disorder; Translations: [Essential hypertension] 06-26-2019 Chronic Immunizations and screening for infectious disease (4 sources) Rheumatoid factor positive 02-10-2021 Episodic Malaise and fatigue (4 sources) Fatigue 02-09-2021 Episodic Mood disorders (10 sources) Depressive disorder 01-28-2020 Chronic Osteoarthritis (3 sources) Osteoarthritis of right knee joint; Translations: [Unilateral primary osteoarthritis, right knee] Onset: 11-04-2024 11-04-2024 Chronic Other congenital anomalies (2 sources) Preauricular sinus and cyst; 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] Onset: 12-20-2023 Chronic Other connective tissue disease (4 sources) Calcaneal spur 04-21-2021 Episodic Other connective tissue disease (3 sources) Foot pain 03-22-2021 Episodic Other connective tissue disease (3 sources) Plantar fasciitis 04-21-2021 Episodic Other connective tissue disease (2 sources) Other specified soft tissue disorders; Translations: [Other specified soft tissue disorders] Onset: 01-23-2024 Episodic Other inflammatory condition of skin (6 sources) Lupus erythematosus 08-09-2023 Chronic Other lower respiratory disease (3 sources) Dyspnea 02-09-2021 Episodic Other lower respiratory disease (4 sources) Wheezing 12-10-2020 Episodic Other lower respiratory disease (6 sources) Cough 05-09-2022 Episodic Other non-traumatic joint disorders (4 sources) Pain in right knee; Translations: [Pain in joint, lower leg] Onset: 11-04-2024 Episodic Other screening for suspected conditions (not mental disorders or infectious disease) (17 sources) Increased bilirubin level; Translations: [Mammography abnormal] Onset: 11-13-2023 01-28-2020 Episodic Other skin disorders (4 sources) Epidermoid cyst of skin of ear 08-09-2023 Episodic Other skin disorders (3 sources) Swelling of lower leg 01-23-2024 Episodic Other upper respiratory infections (5 sources) Viral upper respiratory tract infection; Translations: [Upper respiratory infection] 11-23-2022 Episodic Otitis media and related conditions (4 sources) Otitis media of left ear 09-27-2023 Episodic Pneumonia (except that caused by tuberculosis or sexually transmitted disease) (1 source) Pneumonia 05-23-2022 Episodic Residual codes; unclassified (4 sources) Edema of lower extremity 06-26-2019 Episodic Residual codes; unclassified (2 sources) Bilateral lower leg edema 02-06-2024 Episodic Rheumatoid arthritis and related disease (1 source) Inflammatory polyarthropathy; Translations: [Inflammatory polyarthropathy] Onset: 11-14-2024 Chronic Spondylosis; intervertebral disc disorders; other back problems (4 sources) Low back pain 08-10-2021 Episodic Unclassified (4 sources) Glomerular filtration rate decreased 10-13-2020 Unclassified (20 sources) Patient encounter status 07-07-2020 Unclassified (1 source) Cough, unspecified; Translations: [Cough, unspecified] Onset: 05-15-2025 Past or Other Problems Problem Classification Problem Date Documented Da te Episodic/Chronic Unclassified (1 source) Acute pain of right knee 11-04-2024 Unclassified (1 source) Cough, unspecified; Translations: [Cough, unspecified] Onset: 05-15-2025 Results Test Name Value Interpretation Reference Range Facility CVFLURVon 05-15-2025 FLU A PCR Negative Normal Negative [facility] Comment on above: Order Comment: STAT Performed By: #### C VFLURV #### [place] [id number] FLU B PCR Negative Normal Negative [facility] Comment on above: Order Comment: STAT Performed By: #### C VFLURV #### [place] [address] RSV PCR Negative Normal Negative [facility] Comment on above: Order Comment: STAT Performed By: #### C VFLURV #### [place] [address] SARS-CoV-2 (COVID-19) RNA JOSE MANUEL+probe Ql (Unsp spec) Negative Normal Negative [facility] Comment on above: Order Comment: STAT Result Comment: Resu lts from the Xpert Xpress CoV-2/Flu/RSV plus test should be correlated with the clinical history, epidemiological data, and other data available to the clinical evaluating the patient. Performance of the Xpert Xpress CoV-2/Flu/RSV plus test has only been established in nasopharyngeal swab specimen. Erroneous test results might occur from improper specimen collection, failure to follow the recommended sample collection, handling and storage procedures, technical error, or sample mix-up. False negative results may occur if a virus is present at a level below the analytical limit of detection. Viral nucleic acid may persist in vivo, independent of virus viability. Detection of analyte target(s) does not imply that the corresponding virus(es) are infectious or are the causative agents for clinical symptoms. Recent patient exposure to FluMist or other live attenuated influenza vaccines may cause inaccurate positive results. Performed By: #### C VFLURV #### [place] [address] LABORATORYOrdered By: Rose Marie Cardona on 05-15-2025 FLUAV RNA JOSE MANUEL+probe Ql (Resp) Negative (05/15/25 2:41 PM) Normal AO Auto Urine SS FLUBV RNA JOSE MANUEL+probe Ql (Resp) Negative (05/15/25 2:41 PM) Normal AO Auto Urine SS RSV RNA JOSE MANUEL+probe Ql (Resp) Negative (05/15/25 2:41 PM) Normal AO Auto Urine SS SARS-CoV-2 (COVID-19) RNA JOSE MANUEL+probe Ql (Resp) Negative 1 (05/15/25 2:41 PM) Normal AO Auto Urine SS Comment on above: Interpretive Data: R esults from the Xpert Xpress CoV-2/Flu/RSV plus test should be correlated with the clinical history, epidemiological data, and other data available to the clinical evaluating the patient. Performance of the Xpert Xpress CoV-2/Flu/RSV plus test has only been established in nasopharyngeal swab specimen. Erroneous test results might occur from improper specimen collection, failure to follow the recommended sample collection, handling and storage procedures, technical error, or sample mix-up. False negative results may occur if a virus is present at a level below the analytical limit of detection. Viral nucleic acid may persist in vivo, independent of virus viability. Detection of analyte target(s) does not imply that the corresponding virus(es) are infectious or are the causative agents for clinical symptoms. Recent patient exposure to FluMist or other live attenuated influenza vaccines may cause inaccurate positive results. MA MAMMOGRAM SCREENING BILAT ERAL W/TOMOon 04-29-2025 MA MAMMOGRAM SCREENING BILATERAL W/DONAVAN ORIGINAL FROM: [place] [address] PROCEDURE FOR: LIDA MORELAND [address] [place] [address] Home: PID#: [id number] Exam#: [id number] : 1955 Age: 70 TO: ALICIA FAUSTIN APRN [address] [address] Fax: NO FAX EXAMINATION: SCREENING DIGITAL BILATERAL MAMMOGRAM WITH TOMOSYNTHESIS, 04/27/2025 11:20 am TECHNIQUE: Screening mammography of the bilateral breasts was performed with tomosynthesis. 2D standard and 3D tomosynthesis combination imaging performed through both breasts in the MLO and CC projection. Computer aided detection was utilized in the interpretation of this exam. COMPARISON: 11/13/2023, 09/02/2021 HISTORY: Breast cancer screening. FINDINGS: BREAST DENSITY: There are scattered areas of fibroglandular density. There is a biopsy clip in the left breast. There are no significant masses or calcifications. IMPRESSION: No mammographic evidence of malignancy. Continued screening with annual mammograms is recommended. [place] risk calculations, generated with the history provided, report this patient's 10 year risk and lifetime risk for developing breast cancer at 2.5% and 3.9%, respectively. Based on this assessment tool, if the patient's calculated lifetime risk is below 20%, then the patient is considered at average risk for developing breast cancer. If the patient's calculated lifetime risk is at or above 20%, then the patient is considered high risk for developing breast cancer and may be a candidate for supplemental breast MRI screening in addition to annual mammographic screening per the [place] [employer]. BIRADS: BI-RADS: 2: Benign RECALL: 1 year screening RECALL TYPE: mammo LETTER SENT: Normal BI-RADS 1 and 2 Interpreted by: Eliel Espinoza MD Preliminary Report By: Eliel Espinzoa MD Electronically signed By Eliel Espinoza MD Dictated Date: 04/29/2025 7:38:49 PM Prelim Date: 04/29/2025 7:39:59 PM Sign Date: 04/29/2025 7:39:59 PM Ordering Provider: ALICIA FAUSTIN Diabetes Nurse: DELMIS MACK RT(R)(M)(CT) letter sent: Normal BI-RADS 1 and 2 Mammogram BI-RADS: 2 Benign Normal [facility] Lipid Profileon 11-19-2024 CHOL:HDL 2.32 Normal [facility] Comment on above: Performed By: #### L 500.4102 #### [facility] [address] [place], [address] Cholesterol [Mass/Vol] 220 mg/dL High <=200 [facility] Comment on above: Result Comment: Chol esterol level, Desirable <200 mg/dL Borderline high cholesterol 200-239 mg/dL High cholesterol >=240 mg/dL Recommendations of the NCEP Adult Treatment Panel for the following risk-cutoff thresholds for the [place] population. Performed By: #### L 500.4100 #### [facility] [address] [place], [address] Cholesterol in HDL [Mass/Vol] 95 mg/dL Normal [facility] Comment on above: Result Comment: Georgie onal Cholesterol Education Program (NCEP) guidelines: <40 mg/dL: Low HDL-cholesterol (major risk factor for CHD) >= 60 mg/dL: High HDL-cholesterol (negative risk factor for CHD) HDL-cholesterol is affected by a number of factors, e.g. smoking, exercise, hormones, sex and age. Performed By: #### L 500.4100 #### [facility] [address] [place], [address] Cholesterol in LDL [Mass/Vol] 109 mg/dL Normal [facility] Comment on above: Result Comment: Bord wfltqb=673-094 mg/dL Higher Oajf=509 mg/dL or greater Performed By: #### L 500.4100 #### [facility] [address] [place], [address] Cholesterol in VLDL [Mass/Vol] 16 mg/dL Normal 5-40 [facility] Comment on above: Performed By: #### L 500.4100 #### [facility] [address] [place], [address] Triglyceride [Mass/Vol] 79 mg/dL Normal [facility] Comment on above: Result Comment: The drugs N-Acetylcysteine and Metamizole may falsely depress this assay. Normal range: <150 mg/dL Borderline High: 150-199 mg/dL High: 200-499 mg/dL Very High: >500 mg/dL Performed By: #### L 500.4100 #### [facility] [address] [place], [address] Absolute neutrophil countOrd ered By: Yasmine Luevano on 11-10-2024 Neutrophils (Bld) [#/Vol] 2.7 10*3/uL 2.0-7.7 [facility] Anion gap in Serum or Plasma Ordered By: Yasmine Luevano on 11-10-2024 Anion gap [Moles/Vol] 11 mmol/L 5-15 [facility] BUN/creatinine ratioOrdered By: Yasmine Luevano on 11-10-2024 Urea nitrogen/Creatinine [Mass ratio] 13.5 mg/mg 10-20 [facility] Basophil percentageOrdered B y: Yasmine Luevano on 11-10-2024 Basophils/100 WBC (Bld) 0.9 % 0-1 [facility] Bilirubin, totalOrdered By: Yasmine Luevano on 11-10-2024 Bilirubin [Mass/Vol] 0.87 mg/dL 0.00-1.30 [facility] CBC W/Diff, Automatedon Absolute Lymph 2.20 X10 3/uL Normal 0.83-4.51 [facility] Comment on above: Performed By: #### L 500.4050, L100.0100 #### [facility] [address] [place], [address] Absolute Neut 2.7 X10 3/uL Normal 2.0-7.7 [facility] Comment on above: Performed By: #### L 500.4050, L100.0100 #### [facility] [address] [place], [address] Basophils/100 WBC (Bld) 0.9 % Normal 0-1 [facility] Comment on above: Performed By: #### L 500.4050, L100.0100 #### [facility] [address] [place], [address] Eosinophils/100 WBC (Bld) 1.7 % Normal 0-5 [facility] Comment on above: Performed By: #### L 500.4050, L100.0100 #### [facility] [address] [place], [address] Erythrocyte distribution width (RBC) [Ratio] 13.7 % Normal 11.6-14.6 [facility] Comment on above: Performed By: #### L 500.4050, L100.0100 #### [facility] [address] [place], [address] Hematocrit (Bld) [Volume fraction] 39.7 % Normal 37-47 [facility] Comment on above: Performed By: #### L 500.4050, L100.0100 #### [facility] [address] [place], [address] Hemoglobin (Bld) [Mass/Vol] 13.4 g/dL Normal 12.0-15.0 [facility] Comment on above: Performed By: #### L 500.4050, L100.0100 #### [facility] [address] [place], [address] IG% 0.300 Normal 0.0-0.9 [facility] Comment on above: Result Comment: IG% - Immature Granulocytes (promyelocytes, myelocytes and metamyelocytes) > 1% indicates that a LEFT SHIFT is Present. Performed By: #### L 500.4050, L100.0100 #### [facility] [address] [place], [address] Lymphocytes/100 WBC (Bld) 38.0 % Normal 19-41 [facility] Comment on above: Performed By: #### L 500.4050, L100.0100 #### [facility] [address] [place], [address] MCH (RBC) [Entitic mass] 30.0 pg Normal 27.0-32.0 [facility] Comment on above: Performed By: #### L 500.4050, L100.0100 #### [facility] [address] [place], [address] MCHC (RBC) [Mass/Vol] 33.8 g/dL Normal 32-36 [facility] Comment on above: Performed By: #### L 500.4050, L100.0100 #### [facility] [address] [place], [address] MCV (RBC) [Entitic vol] 89.0 fL Normal 81-99 [facility] Comment on above: Performed By: #### L 500.4050, L100.0100 #### [facility] [address] [place], [address] Monocytes/100 WBC (Bld) 12.1 % High 0-10 [facility] Comment on above: Performed By: #### L 500.4050, L100.0100 #### [facility] [address] [place], [address] Neutrophils/100 WBC (Bld) 47.0 % Normal 47-70 [facility] Comment on above: Performed By: #### L 500.4050, L100.0100 #### [facility] [address] [place], [address] Nucleated RBC (Bld) [#/Vol] 0 10*3/uL Normal 0-5 [facility] Comment on above: Performed By: #### L 500.4050, L100.0100 #### [facility] [address] [place], [address] Platelet mean volume (Bld) [Entitic vol] 11.3 fL Normal 6.2-12.0 [facility] Comment on above: Performed By: #### L 500.4050, L100.0100 #### [facility] [address] [place], [address] Platelets (Bld) [#/Vol] 229 10*3/uL Normal 150-450 [facility] Comment on above: Performed By: #### L 500.4050, L100.0100 #### [facility] [address] [place], [address] RBC (Bld) [#/Vol] 4.46 10*6/uL Normal 4.2-5.4 [facility] Comment on above: Performed By: #### L 500.4050, L100.0100 #### [facility] [address] [place], [address] RDW SD 44.7 fl High 35.1-43.9 [facility] Comment on above: Performed By: #### L 500.4050, L100.0100 #### [facility] [address] [place], [address] WBC (Bld) [#/Vol] 5.8 10*3/uL Normal 4.4-11.0 [facility] Comment on above: Performed By: #### L 500.4050, L100.0100 #### [facility] [address] [place], [address] Carbon dioxide, total [Moles /volume] in Central venous bloodOrdered By: Yasmine Luevano on 11-10-2024 CO2 [Moles/Vol] 25.1 mmol/L 21.0-32.0 [facility] Chloride assayOrdered By: Daniel Luevano on 11-10-2024 Chloride [Moles/Vol] 105 mmol/L 98-108 [facility] Comprehensive Metabolic Prof ilon 11-10-2024 Albumin [Mass/Vol] 3.8 g/dL Normal 3.4-4.8 [facility] Comment on above: Performed By: #### L 500.4050, L100.0100 #### [facility] [address] [place], [address] Albumin/Globulin [Mass ratio] 1.6 {ratio} Normal 0.9-2.4 [facility] Comment on above: Performed By: #### L 500.4050, L100.0100 #### [facility] [address] [place], [address] ALK PHOS 122 U/L High 35-104 [facility] Comment on above: Performed By: #### L 500.4050, L100.0100 #### [facility] [address] [place], [address] ALT [Catalytic activity/Vol] 21 U/L Normal <=34 [facility] Comment on above: Performed By: #### L 500.4050, L100.0100 #### [facility] [address] [place], [address] AST [Catalytic activity/Vol] 24 U/L Normal <=31 [facility] Comment on above: Performed By: #### L 500.4050, L100.0100 #### [facility] [address] [place], [address] Bilirubin [Mass/Vol] 0.87 mg/dL Normal 0.00-1.30 [facility] Comment on above: Performed By: #### L 500.4050, L100.0100 #### [facility] [address] [place], [address] BUN/CRE 13.5 RATIO Normal 10-20 [facility] Comment on above: Performed By: #### L 500.4050, L100.0100 #### [facility] [address] [place], [address] Calcium [Mass/Vol] 9.0 mg/dL Normal 7.6-11.0 [facility] Comment on above: Performed By: #### L 500.4050, L100.0100 #### [facility] [address] [place], [address] Chloride [Moles/Vol] 105 mmol/L Normal 98-108 [facility] Comment on above: Performed By: #### L 500.4050, L100.0100 #### [facility] [address] [place], [address] CO2 [Moles/Vol] 25.1 mmol/L Normal 21.0-32.0 [facility] Comment on above: Performed By: #### L 500.4050, L100.0100 #### [facility] [address] [place], [address] Creatinine [Mass/Vol] 1.14 mg/dL Normal 0.70-1.20 [facility] Comment on above: Performed By: #### L 500.4050, L100.0100 #### [facility] [address] [place], [address] GAP 11 Normal 5-15 [facility] Comment on above: Performed By: #### L 500.4050, L100.0100 #### [facility] [address] [place], [address] GFR/1.73 sq M.predicted among non-blacks MDRD (S/P/Bld) [Vol rate/Area] 52 mL/min/{1.73_m2} Low >60 [facility] Comment on above: Result Comment: mL/m in/1.73m2 CKD-EPI Creatinine Equation (2020) Performed By: #### L 500.4050, L100.0100 #### [facility] [address] [place], [address] Globulin (S) [Mass/Vol] 2.4 g/dL Normal 2.2-4.2 [facility] Comment on above: Performed By: #### L 500.4050, L100.0100 #### [facility] [address] [place], [address] Glucose [Mass/Vol] 79 mg/dL Normal 70-99 [facility] Comment on above: Performed By: #### L 500.4050, L100.0100 #### [facility] [address] [place], [address] Potassium [Moles/Vol] 3.9 mmol/L Normal 3.3-5.1 [facility] Comment on above: Performed By: #### L 500.4050, L100.0100 #### [facility] [address] [place], [address] Sodium [Moles/Vol] 141 mmol/L Normal 133-145 [facility] Comment on above: Performed By: #### L 500.4050, L100.0100 #### [facility] [address] [place], [address] T PROT 6.2 g/dL Normal 5.9-8.4 [facility] Comment on above: Performed By: #### L 500.4050, L100.0100 #### [facility] [address] [place], [address] Urea nitrogen [Mass/Vol] 15 mg/dL Normal 4-19 [facility] Comment on above: Performed By: #### L 500.4050, L100.0100 #### [facility] [address] [place], [address] Eosinophil percentageOrdered By: Yasmine Luevano on 11-10-2024 Eosinophils/100 WBC (Bld) 1.7 % 0-5 [facility] Erythrocyte distribution wid th (RBC) [Ratio]Ordered By: Yasmine Luevano on 11-10-2024 Erythrocyte distribution width (RBC) [Entitic vol] 44.7 fL High 35.1-43.9 [facility] Erythrocyte distribution wid th ratioOrdered By: Yasmine Luevano on 11-10-2024 Erythrocyte distribution width (RBC) [Ratio] 13.7 % 11.6-14.6 [facility] GFR/1.73 sq M.predicted syl g non-blacks MDRD (S/P/Bld) [Vol rate/Area]Ordered By: Yasmine Luevano on 11-10-2024 Estimated GFR (MDRD) Non-Af Amer 52 Low >60 [facility] Comment on above: mL/min/1.73m2 CKD-EP I Creatinine Equation (2020) Hematocrit Auto (Bld) [Volum e fraction]Ordered By: Yasmine Luevano on 11-10-2024 Hematocrit (Bld) [Volume fraction] 39.7 % 37-47 [facility] Hemoglobin measurementOrdere d By: Yasmine Luevano on 11-10-2024 Hemoglobin (Bld) [Mass/Vol] 13.4 g/dL 12.0-15.0 [facility] Immature granulocytes/100 WB C Auto (Bld)Ordered By: Yasmine Luevano on 11-10-2024 Immature granulocytes/100 WBC (Bld) 0.300 % 0.0-0.9 [facility] Comment on above: IG% - Immature Granu locytes (promyelocytes, myelocytes and metamyelocytes) > 1% indicates that a LEFT SHIFT is Present. Laboratory - Chemistry and C hemistry - challengeOrdered By: Yasmine Luevano on 11-10-2024 AST [Catalytic activity/Vol] 24 U/L <32 [facility] Lymphocytes Auto (Unsp spec) [#/Vol]Ordered By: Yasmine Luevano on 11-10-2024 Lymphocytes (Bld) [#/Vol] 2.20 10*3/uL 0.83-4.51 [facility] Lymphocytes/100 WBC Auto (Un sp spec)Ordered By: Yasmine Luevano on 11-10-2024 Lymphocytes/100 WBC (Bld) 38.0 % 19-41 [facility] MCV (mean corpuscular volume ) determinationOrdered By: Yasmine Luevano on 11-10-2024 MCV (RBC) [Entitic vol] 89.0 fL 81-99 [facility] Mean corpuscular hemoglobin (MCH) determinationOrdered By: Yasmine Luevano on 11-10-2024 MCH (RBC) [Entitic mass] 30.0 pg 27.0-32.0 [facility] Mean corpuscular hemoglobin concentration (MCHC) determinationOrdered By: Yasmine Luevano on 11-10-2024 MCHC (RBC) [Mass/Vol] 33.8 g/dL 32-36 [facility] Mean platelet volume determi nationOrdered By: Yasmine Luevano on 11-10-2024 Platelet mean volume (Bld) [Entitic vol] 11.3 fL 6.2-12.0 [facility] Monocyte percentageOrdered B y: Yasmine Luevano on 11-10-2024 Monocytes/100 WBC (Bld) 12.1 % High 0-10 [facility] Neutrophil percentageOrdered By: Yasmine Luevano on 11-10-2024 Neutrophils/100 WBC (Bld) 47.0 % 47-70 [facility] Nucleated red blood cell per centageOrdered By: Yasmine Luevano on 11-10-2024 Nucleated RBC/100 WBC (Bld) [Ratio] 0 % 0-5 [facility] Platelet countOrdered By: Daniel Luevano on 11-10-2024 Platelets (Bld) [#/Vol] 229 10*3/uL 150-450 [facility] Potassium (Unsp spec) [Mass/ Vol]Ordered By: Yasmine Luevano on 11-10-2024 Potassium [Moles/Vol] 3.9 mmol/L 3.3-5.1 [facility] RBC Auto (Bld) [#/Vol]Ordere d By: Yasmine Luevano on 11-10-2024 RBC (Bld) [#/Vol] 4.46 10*6/uL 4.2-5.4 [facility] Serum creatinine measurement (mass/volume)Ordered By: Yasmine Luevano on 11-10-2024 Creatinine [Mass/Vol] 1.14 mg/dL 0.70-1.20 [facility] Serum globulin measurementOr dered By: Yasmine Luevano on 11-10-2024 Globulin (S) [Mass/Vol] 2.4 g/dL 2.2-4.2 [facility] Serum glucose measurement (m ass/volume)Ordered By: Yasmine Luevano on 11-10-2024 Glucose [Mass/Vol] 79 mg/dL 70-99 [facility] Serum or plasma alanine suero otransferase (ALT) measurementOrdered By: Yasmine Luevano on 11-10-2024 ALT [Catalytic activity/Vol] 21 U/L <35 [facility] Serum or plasma albumin aury urement (mass/volume)Ordered By: Yasmine Luevano on 11-10-2024 Albumin [Mass/Vol] 3.8 g/dL 3.4-4.8 [facility] Serum or plasma albumin/glob ulin mass ratioOrdered By: Yasmine Luevano on 11-10-2024 Albumin/Globulin [Mass ratio] 1.6 {ratio} 0.9-2.4 [facility] Serum or plasma alkaline ronda sphatase measurementOrdered By: Yasmine Luevano on 11-10-2024 ALP [Catalytic activity/Vol] 122 U/L High 35-104 [facility] Serum or plasma calcium aury urement (mass/volume)Ordered By: Yasmine Luevano on 11-10-2024 Calcium [Mass/Vol] 9.0 mg/dL 7.6-11.0 [facility] Serum or plasma urea nitroge n measurement (mass/volume)Ordered By: Yasmine Luevano on 11-10-2024 Urea nitrogen [Mass/Vol] 15 mg/dL 4-19 [facility] Sodium levelOrdered By: Josselyn Luevano on 11-10-2024 Sodium [Moles/Vol] 141 mmol/L 133-145 [facility] Total proteinOrdered By: Ariel Luevano on 11-10-2024 Protein [Mass/Vol] 6.2 g/dL 5.9-8.4 [facility] White blood cell (WBC) count Ordered By: Yasmine Luevano on 11-10-2024 WBC (Bld) [#/Vol] 5.8 10*3/uL 4.4-11.0 [facility] CNOVon 11-04-2024 CNOV Office Visit ([facility] ) LIDA MORELAND ([id number]) 1955 F Date Time Provider Department 11/04/24 8:40 AM RADHA [facility] During your visit today, we recorded the following information about you: Temperature Pulse Respiration Blood pressure 97.6 degrees 60/minute 18/minute 147/91 Weight 113.4 kg Fawad Gracia, [employer] 11/04/2024 9:48 AM Signed Knee arthritis You have been diagnosed with knee arthritis or osteoarthritis. Although there are many different stages of arthritis, the treatment generally remains the same and includes the following. Strengthening exercises for your hamstrings (back of upper leg), quadriceps (front of upper leg), buttocks, and calf muscles. The surrounding muscles of the knee will help support your knees and take some of the stress off of the joint. Please follow the instructions by your physical therapist. Most of the strengthening can come from general exercises such as biking (stationary is fine), swimming, low impact aerobics, water aerobics, or walking. I recommend varying these to assure different muscle use and decreasing repetitive forces on your knees. You may be given specific strengthening exercises such as leg presses, hamstring curles, wall squats or regular squats. In general, if it is hurting to do an exercise, back off, or stop doing it. Shoe wear is very important as the forces that are transmitted from your foot to your knee when walking can be dissipated with good tennis shoes or an insert in your shoes (gel soles, over the counter shoe inserts - Spenco inserts seem to last the longest and can be found at shoe and sporting good stores). Glucosamine sulfate/chondroitin sulfate has been shown to be safe and effective for knee arthritis. This is an over the counter medication/supplement and usually needs to be taken for 1-2 months before results are seen. If you do not see any results after this time, consider stopping it. The dose is usually found on the bottle, and is 1500mg to start (first 1-2 months) then you can back down to 1000 mg (current recommendations are 1500mg per day, all at once). Some people can have stomach problems with this and if you do, you may stop taking it. If you are ALLERGIC TO SHELLFISH, please do not take. Follow the instructions on the bottle. Injections are commonly used to treat arthritis as well. Steroid or cortisone injections are used to help with the pain and swelling in your knee joint from the arthritis. Relief from steroid injections can last anywhere from a few days to several months, depending on the severity of your arthritis. Synvisc and Hyalgan are also commonly used for treatment of arthritis. These medications help replenish the substances found in your knee joint and ultimately help with the pain associated with arthritis. These injections are given weekly for 3-5 weeks. Braces, canes, orthotics, and walkers can also be used depending on the severity of your arthritis. Weight loss is also an important aspect of management of arthritis to help decrease the forces placed on your knee joint while walking, running, or doing any exercises. If you even just lose a few pounds, that should help. If you are unsure of how to do this or have any questions, please consult with your primary physican. One rule to follow is to eat 5-9 servings of fruits or vegetables a day as recommended by most health professional agencies. You may ice as needed or when you are in pain. For an ice bag, apply for 15-20 minutes at least twice a day, more if needed. Ice in a Ziplog/plastic bag or even a bag of frozen peas/corn will work (and is reusable). For ice massage, fill an empty paper or styrofoam cup nearly full with water, place them in the freezer and let them freeze completely. Tear the top off of the cup leaving the bottom part of the cup intact so you can hold onto it. Rub the ice over the affected area for about [address] to do this is in the shower or the bath (with affected area out of the water) for the contrast of hot water, but it can be done outside of the shower. You can also use Anais dish liquid frozen in a ziploc bag. Use a large bottle, dump it in a gallon ziploc bag, zip that and place it inside another ziploc bag. Place in freezer and let it harden to a Play-rhiannon like consistency. Mold it around the part to be iced and use an alek wrap or towel to keep in place. Refreeze and use when needed. If a medication for the pain, swelling, or inflammation has not been prescribed to you, you can use over the counter medications such as: Aleve (Naproxen sodium), 1-2 pills, up to twice a day, with food, for 5-10 days, then as needed thereafter. OR Ibuprofen (Motrin), 3-4 pills, up to three times a day, with food, for 5-10 days, then as needed thereafter. Do not take these medications if you (more content not included)... Normal [facility] XR KNEE 4V AP/LAT/OBLS RTon 11-04-2024 XR KNEE 4V AP/LAT/OBLS RT * * *Final Report* * * DATE OF EXAM: Nov 04 2024 10:15AM RMX 5205 - XR KNEE 4V AP/LAT/OBLS RT / PROCEDURE REASON: Acute pain of right knee * * * * Physician Interpretation * * * * XR KNEE 4V AP/LAT/OBLS RT Ordering Physician: FAWAD GARCIA 11/04/2024 10:15 AM RIGHT KNEE Clinical Statement: Knee pain FINDINGS: 5 images of the right knee were obtained. There were no prior studies available for comparison. There are mild degenerative changes. There is patellar spurring. There are no acute fractures. There is no joint effusion. IMPRESSION: Degenerative change. No acute abnormalities. Admitting Officer: PSCB Transcribe Date/Time: Nov 05 2024 5:25P Dictated by : DUSTIN WILLETT MD This examination was interpreted and the report reviewed and electronically signed by: DUSTIN WILLETT MD on Nov 05 2024 5:26PM EST [id number] N [facility] CBC W/Diff, Automatedon 10- Absolute Lymph 2.22 X10 3/uL Normal 0.83-4.51 [facility] Comment on above: Performed By: #### L 100.0100, L500.4050 #### [facility] [address] [place], [place], [id number] Absolute Neut 2.5 X10 3/uL Normal 2.0-7.7 [facility] Comment on above: Performed By: #### L 100.0100, L500.4050 #### [facility] [address] [place], [address] Basophils/100 WBC (Bld) 0.7 % Normal 0-1 [facility] Comment on above: Performed By: #### L 100.0100, L500.4050 #### [facility] [address] [place], [address] Eosinophils/100 WBC (Bld) 2.0 % Normal 0-5 [facility] Comment on above: Performed By: #### L 100.0100, L500.4050 #### [facility] [address] [place], [address] Erythrocyte distribution width (RBC) [Ratio] 13.1 % Normal 11.6-14.6 [facility] Comment on above: Performed By: #### L 100.0100, L500.4050 #### [facility] [address] [place], [address] Hematocrit (Bld) [Volume fraction] 39.7 % Normal 37-47 [facility] Comment on above: Performed By: #### L 100.0100, L500.4050 #### [facility] [address] [place], [address] Hemoglobin (Bld) [Mass/Vol] 13.0 g/dL Normal 12.0-15.0 [facility] Comment on above: Performed By: #### L 100.0100, L500.4050 #### [facility] [address] [place], [address] IG% 0.400 Normal 0.0-0.9 [facility] Comment on above: Result Comment: IG% - Immature Granulocytes (promyelocytes, myelocytes and metamyelocytes) > 1% indicates that a LEFT SHIFT is Present. Performed By: #### L 100.0100, L500.4050 #### [facility] [address] [place], [address] Lymphocytes/100 WBC (Bld) 40.7 % Normal 19-41 [facility] Comment on above: Performed By: #### L 100.0100, L500.4050 #### [facility] [address] [place], [address] MCH (RBC) [Entitic mass] 29.7 pg Normal 27.0-32.0 [facility] Comment on above: Performed By: #### L 100.0100, L500.4050 #### [facility] [address] [place], [address] MCHC (RBC) [Mass/Vol] 32.7 g/dL Normal 32-36 [facility] Comment on above: Performed By: #### L 100.0100, L500.4050 #### [facility] [address] [place], [address] MCV (RBC) [Entitic vol] 90.6 fL Normal 81-99 [facility] Comment on above: Performed By: #### L 100.0100, L500.4050 #### [facility] [address] [place], [address] Monocytes/100 WBC (Bld) 11.2 % High 0-10 [facility] Comment on above: Performed By: #### L 100.0100, L500.4050 #### [facility] [address] [place], [address] Neutrophils/100 WBC (Bld) 45.0 % Low 47-70 [facility] Comment on above: Performed By: #### L 100.0100, L500.4050 #### [facility] [address] [place], [address] Nucleated RBC (Bld) [#/Vol] 0 10*3/uL Normal 0-5 [facility] Comment on above: Performed By: #### L 100.0100, L500.4050 #### [facility] [address] [place], [address] Platelet mean volume (Bld) [Entitic vol] 11.2 fL Normal 6.2-12.0 [facility] Comment on above: Performed By: #### L 100.0100, L500.4050 #### [facility] [address] [place], [address] Platelets (Bld) [#/Vol] 205 10*3/uL Normal 150-450 [facility] Comment on above: Performed By: #### L 100.0100, L500.4050 #### [facility] [address] [place], [address] RBC (Bld) [#/Vol] 4.38 10*6/uL Normal 4.2-5.4 [facility] Comment on above: Performed By: #### L 100.0100, L500.4050 #### [facility] [address] [place], [address] RDW SD 44.2 fl High 35.1-43.9 [facility] Comment on above: Performed By: #### L 100.0100, L500.4050 #### [facility] [address] [place], [address] WBC (Bld) [#/Vol] 5.5 10*3/uL Normal 4.4-11.0 [facility] Comment on above: Performed By: #### L 100.0100, L500.4050 #### [facility] [address] [place], [address] Comprehensive Metabolic Prof [facility] 05-21-2024 Albumin [Mass/Vol] 3.4 g/dL Normal 3.2-5.0 [facility] Comment on above: Performed By: #### L 100.0100, L500.4050 #### [facility] [address] [place], [address] Albumin/Globulin [Mass ratio] 1.1 {ratio} Normal 0.9-2.4 [facility] Comment on above: Performed By: #### L 100.0100, L500.4050 #### [facility] [address] [place], [address] ALK P 133 U/L High 45-117 [facility] Comment on above: Performed By: #### L 100.0100, L500.4050 #### [facility] [address] [place], [address] ALT [Catalytic activity/Vol] 23 U/L Normal 13-56 [facility] Comment on above: Performed By: #### L 100.0100, L500.4050 #### [facility] [address] [place], [address] AST [Catalytic activity/Vol] 17 U/L Normal 15-37 [facility] Comment on above: Performed By: #### L 100.0100, L500.4050 #### [facility] [address] [place], [address] Bilirubin [Mass/Vol] 1.10 mg/dL High 0.20-1.00 [facility] Comment on above: Result Comment: For patients on eltrombopag therapy, use of Dimension [place] TBIL is not recommended. Performed By: #### L 100.0100, L500.4050 #### [facility] [address] [place], [address] BUN/CRE 13.3 RATIO Normal 10-20 [facility] Comment on above: Performed By: #### L 100.0100, L500.4050 #### [facility] [address] [place], [address] CA,Total 9.4 mg/dL Normal 8.5-10.1 [facility] Comment on above: Performed By: #### L 100.0100, L500.4050 #### [facility] [address] [place], [address] Chloride [Moles/Vol] 105 mmol/L Normal 98-107 [facility] Comment on above: Performed By: #### L 100.0100, L500.4050 #### [facility] [address] [place], [address] CO2 [Moles/Vol] 27.0 mmol/L Normal 21.0-32.0 [facility] Comment on above: Performed By: #### L 100.0100, L500.4050 #### [facility] [address] [place], [address] Creatinine [Mass/Vol] 0.98 mg/dL Normal 0.55-1.02 [facility] Comment on above: Result Comment: The validity of the calculated GFR GFRAA in patients over 70 years has not been determined. Clinical correlation is essential. Performed By: #### L 100.0100, L500.4050 #### [facility] [address] [place], [address] EST GFR - AA 72 mL/min Normal >60 [facility] Comment on above: Result Comment: Afri can [place] GFR Calc Performed By: #### L 100.0100, L500.4050 #### [facility] [address] [place], [address] GAP 7 Normal 5-15 [facility] Comment on above: Performed By: #### L 100.0100, L500.4050 #### [facility] [address] [place], [address] GFR/1.73 sq M.predicted among non-blacks MDRD (S/P/Bld) [Vol rate/Area] 60 mL/min/{1.73_m2} Normal >60 [facility] Comment on above: Result Comment: Non- GFR Calc Performed By: #### L 100.0100, L500.4050 #### [facility] [address] [place], [address] Globulin (S) [Mass/Vol] 3.2 g/dL Normal 2.2-4.2 [facility] Comment on above: Performed By: #### L 100.0100, L500.4050 #### [facility] [address] [place], [address] Glucose [Mass/Vol] 76 mg/dL Normal 74-106 [facility] Comment on above: Performed By: #### L 100.0100, L500.4050 #### [facility] [address] [place], [address] Potassium [Moles/Vol] 4.3 mmol/L Normal 3.5-5.1 [facility] Comment on above: Performed By: #### L 100.0100, L500.4050 #### [facility] [address] [place], [address] Sodium [Moles/Vol] 139 mmol/L Normal 136-145 [facility] Comment on above: Performed By: #### L 100.0100, L500.4050 #### [facility] [address] [place], [address] T PROT 6.6 g/dL Normal 6.4-8.2 [facility] Comment on above: Performed By: #### L 100.0100, L500.4050 #### [facility] [address] [place], [address] Urea nitrogen [Mass/Vol] 13 mg/dL Normal 7-18 [facility] Comment on above: Performed By: #### L 100.0100, L500.4050 #### [facility] [address] [place], [address] LABORATORYOrdered By: Rose Marie Cardona on 03-03-2024 Cholesterol [Mass/Vol] 176 mg/dL Normal 0 - 200 mg/dL AO ADM SS Comment on above: Interpretive Data: C holesterol Reference Interval: Less than 200 Desirable 200-239 Borderline high risk 240 and above High risk Cholesterol in HDL [Mass/Vol] 90 mg/dL High 40 - 60 mg/dL AO ADM SS Cholesterol in LDL [Mass/Vol] 71 mg/dL Normal 0 - 130 mg/dL AO ADM SS Triglyceride [Mass/Vol] 76 mg/dL Normal 0 - 150 mg/d L AO ADM SS Comment on above: Interpretive Data: T riglyceride Reference Interval: Less than 150 Normal 150-199 Borderline high risk 200-499 High risk 500 or higher Very high risk LIPIDon 03-03-2024 Cholesterol [Mass/Vol] 176 mg/dL Normal 0-200 [facility] ([place]) Comment on above: Result Comment: Chol esterol Reference Interval: Less than 200 Desirable 200-239 Borderline high risk 240 and above High risk Performed By: #### L IPID #### [address] [address] Cholesterol in HDL [Mass/Vol] 90 mg/dL High 40-60 [facility] ([place]) Comment on above: Performed By: #### L IPID #### [address] [address] Cholesterol in LDL [Mass/Vol] 71 mg/dL Normal 0-130 [facility] ([place]) Comment on above: Performed By: #### L IPID #### [address] [address] Triglyceride [Mass/Vol] 76 mg/dL Normal 0-150 A [facility] ([place]) Comment on above: Result Comment: Trig lyceride Reference Interval: Less than 150 Normal 150-199 Borderline high risk 200-499 High risk 500 or higher Very high risk Performed By: #### L IPID #### [address] [address] LABORATORYOrdered By: SYSTEM SYSTEM on 01-23-2024 Natriuretic peptide.B prohormone N-Terminal [Mass/Vol] 242 pg/mL High 0 - 125 pg/mL AO ADM SS Comment on above: Interpretive Data: N T-proBNP results of less than 300 pg/mL effectively rules out acute congestive heart failure with 99% negative predictive value. PBNPon 01-23-2024 Natriuretic peptide B (Bld) [Mass/Vol] 242 pg/mL High 0-125 [facility] ([place]) Comment on above: Result Comment: NT-p roBNP results of less than 300 pg/mL effectively rules out acute congestive heart failure with 99% negative predictive value. Performed By: #### P BNP #### [facility] [address], [place] [address] Final Surgical Pathology Rep [facility] 12-24-2023 Final Surgical Pathology Report . Pathology Reports Accession: Collected Date/Time: Received Date/Time: Pathologist: [id number] 12/20/2023 09:25 EDT 12/21/2023 09:25 EDT LORI KINNEY MD Final Surgical Pathology Report DIAGNOSIS: CYST LEFT EAR: - EPIDERMAL INCLUSION CYST WITH CHRONIC INFLAMMATION CLINICAL INFORMATION: CYST ON EAR Procedure: EXCISION OF CYST ON THE POSTERIOR EAR WITH INTERMEDIATE CLOSURE Preoperative diagnosis: CYST Postoperative diagnosis: SAME SPECIMEN: A POSTERIOR EAR CYST GROSS DESCRIPTION: All parts labelled with patient name and [id number] Received in formalin labelled "cyst left ear" Is a white -florian portion of cystic soft tissue with no grossly identified skin measuring 1.5 x 0.8 x 0.6 cm. Outer surface of the specimen is inked black. TS-1 Serjio Camilo, Pathologists' Media Aid (ASCP) Dictated by SERJIO CAMILO MICROSCOPIC DESCRIPTION: The microscopic examination is performed, except in the case of Gross Only. Electronically Signed by Pathology Report verified by [facility] LORI KINNEY Sign out Date: 12/24/2023 14:23 Performing Lab: [facility], [address] [place] [address] States Pathology Dept Disclaimer If ancillary studies were utilized, the following Laboratory Developed Test (LDT) disclaimer will apply: Under CLIA requirements, [facility] is qualified to perform high complexity testing. For all ancillary stains, positive and negative controls stain appropriately. Performance characteristics of immunohistochemical and chromogenic in-situ hybridization tests have been determined by [facility]. These tests are used for clinical purposes, They should not be regarded as investigational or for research. Normal [facility] ([place]) MA MAMMOGRAM SCREENING BILAT ERAL W/TOMOon 11-14-2023 MA MAMMOGRAM SCREENING BILATERAL W/DONAVAN ORIGINAL FROM: [facility] [address] [place] [address] PROCEDURE FOR: LIDA MORELAND [address] [place] [address] Home: PID#: [id number] Exam#: [id number] : 1955 Age: 68 TO: ALICIA LOGAN SHAH [address] [address] Fax: NO FAX EXAMINATION: SCREENING DIGITAL BILATERAL MAMMOGRAM WITH TOMOSYNTHESIS, 11/13/2023 2:12 pm TECHNIQUE: Screening mammography of the bilateral breasts was performed with tomosynthesis. 2D standard and 3D tomosynthesis combination imaging performed through both breasts in the MLO and CC projection. Computer aided detection was utilized in the interpretation of this exam. COMPARISON: August 25, 2021, January 21, 2021, July 15, 2020 HISTORY: Breast cancer screening. FINDINGS: BREAST DENSITY: Scattered fibroglandular tissue There is a biopsy marker clip in the left breast. There is a benign right upper outer quadrant intramammary lymph node. There is no significant mass, architectural distortion or microcalcification. Fibroglandular pattern is stable. IMPRESSION: No mammographic evidence of malignancy. Continued screening with annual mammograms is recommended. Geneva Cuzick risk calculations, generated with the history provided, report this patient's 10 year risk and lifetime risk for developing breast cancer at 2.4% and 4.4%, respectively. Based on this assessment tool, if the patient's calculated lifetime risk is below 20%, then the patient is considered at average risk for developing breast cancer. If the patient's calculated lifetime risk is at or above 20%, then the patient is considered high risk for developing breast cancer and may be a candidate for supplemental breast MRI screening in addition to annual mammographic screening per the [place] [employer]. BIRADS: MAMMOGRAM BI-RADS: 2: Benign finding RECALL: 1 year screening RECALL TYPE: mammo LETTER SENT: Normal BI-RADS 1 and 2 Interpreted by: Christine Whitt Preliminary Report By: Christine Whitt Electronically signed By Christine Whitt Dictated Date: 11/14/2023 9:22:14 AM Prelim Date: 11/14/2023 9:25:50 AM Sign Date: 11/14/2023 9:25:50 AM Ordering Provider: ALICIA FAUSTIN Diabetes Nurse: WOO KHAN RT(R)(M)(CT) [employer] [employer] letter sent: Normal BI-RADS 1 and 2 Mammogram BI-RADS: 2 Benign Normal [facility] ([place]) BD BONE DENSITY DEXA AXIAL S [facility] 11-13-2023 BD BONE DENSITY DEXA AXIAL SKELETON ORIGINAL EXAMINATION: BONE DENSITOMETRY 11/13/2023 4:27 pm TECHNIQUE: A bone density dual x-ray absorptiometry (DEXA) scan was performed of the axial (e.g. hips, spine) and/or appendicular (e.g. radius) skeleton as appropriate. COMPARISON: 01/21/2021 HISTORY: ORDERING SYSTEM PROVIDED HISTORY: Reason for Exam: Osteoporosis Screening FINDINGS: T Score Left Femoral Neck: -0.9 Left Femoral Neck: 0.753 (g/cm2) T Score Left Hip: 0.2 Left Hip: 0.963 (g/cm2) T Score Lumbar Spine: -1.3 Lumbar Spine: 0.905 (g/cmd2) BMD change from previous hip:-4.3% BMD change from previous spine:-2.1% FRAX: 10 year fracture risk assessment Major osteoporotic fracture: 7.4% Hip fracture: 1% IMPRESSION: Osteopenia by WHO criteria. World Health Organization criteria: (Comparing with young normal sex matched population) - Normal: T-score at or above -1 SD (standard deviation) - Osteopenia: T-score between -1 and -2.5 SD - Osteoporosis: T-score at or below -2.5 SD The NOF recommends that FDA-approved medical therapies be considered in post-menopausal women and men age >/= 50 years with a: * Hip or vertebral fracture, or * T-score of /= 20% for major osteoporotic fractures or * >/= 3% for hip fractures All treatment decisions require clinical judgement and consideration of individual patient factors, including patient preferences, comorbidities, previous drug use, risk factors not captured in the FRAX registered model (e.g., frailty, falls, vitamin D deficiency, increased bone turnover, interval significant decline in bone density) and possible under- or over-estimation of fracture risk by FRAX. Interpreted by: Eliel Fernandez DO Preliminary Report By: Eliel Fernandez DO Electronically signed By Eliel Fernandez DO Dictated Date: 11/13/2023 5:00:30 PM Prelim Date: 11/13/2023 5:01:18 PM Sign Date: 11/13/2023 5:01:18 PM Ordering Provider: ALICIA FAUSTIN [facility] ([place]) Absolute lymphocyte countOrd ered By: Yasmine Luevano on 10-24-2023 Lymphocytes Auto (Unsp spec) [#/Vol] 2.62 10*3/uL 0.83-4.51 [facility] Automated lymphocyte count a s percentage of total leukocytesOrdered By: Yasmine Luevano on 10-24-2023 Lymphocytes/100 WBC Auto (Unsp spec) 44.0 % 19-41 [facility] Basophil percentageOrdered B y: Yasmine Luevano on 10-24-2023 Basophils/100 WBC (Bld) 0.7 % 0-1 [facility] Bilirubin [Mass/Vol] 0.80 mg/dL 0.20-1.00 [facility] Comment on above: For patients on eltr ombopag therapy, use of Dimension [place] TBIL is not recommended. Chloride [Moles/Vol] 106 mmol/L 98-107 [facility] Cholesterol [Mass/Vol] 152 mg/dL <200 [facility] Comment on above: <200 mg/dL Desirable 200-240 mg/dL Borderline >240 mg/dL High Risk Eosinophils/100 WBC (Bld) 1.0 % 0-5 [facility] Glucose [Mass/Vol] 80 mg/dL 74-106 [facility] Hemoglobin (Bld) [Mass/Vol] 13.0 g/dL 12.0-15.0 [facility] Monocytes/100 WBC (Bld) 11.7 % 0-10 [facility] Neutrophils (Bld) [#/Vol] 2.5 10*3/uL 2.0-7.7 [facility] Neutrophils/100 WBC (Bld) 42.3 % 47-70 [facility] Potassium [Moles/Vol] 3.5 mmol/L 3.5-5.1 [facility] Protein [Mass/Vol] 6.5 g/dL 6.4-8.2 [facility] Sodium [Moles/Vol] 140 mmol/L 136-145 [facility] Triglyceride [Mass/Vol] 113 mg/dL <199 [facility] Comment on above: The drugs N-Acetylcy steine and Metamizole may falsely depress this assay.Serum Triglycerides Reference Interval Normal <150 mg/dL Borderline high 150 - 199 mg/dL High 200 - 499 mg/dL Very High > or = 500 mg/dL WBC (Bld) [#/Vol] 6.0 10*3/uL 4.4-11.0 [facility] Determination of erythrocyte mean corpuscular volume (MCV)Ordered By: Yasmine Luevano on 10-24-2023 MCV (RBC) [Entitic vol] 91.0 fL 81-99 [facility] Erythrocyte distribution wid th ratioOrdered By: Yasmine Luevano on 10-24-2023 Erythrocyte distribution width (RBC) [Ratio] 13.6 % 11.6-14.6 [facility] Erythrocyte distribution wid th standard deviationOrdered By: Yasmine Luevano on 10-24-2023 Erythrocyte distribution width (RBC) [Entitic vol] 46.0 fL 35.1-43.9 [facility] Hematocrit Auto (Bld) [Volum e fraction]Ordered By: Yasmine Luevano on 10-24-2023 Hematocrit (Bld) [Volume fraction] 40.3 % 37-47 [facility] Immature granulocytes/100 WB C Auto (Bld)Ordered By: Yasmine Luevano on 10-24-2023 Immature granulocytes/100 WBC (Bld) 0.300 % 0.0-0.9 [facility] Comment on above: IG% - Immature Granu locytes (promyelocytes, myelocytes and metamyelocytes) > 1% indicates that a LEFT SHIFT is Present. Laboratory - Chemistry and C hemistry - challengeOrdered By: Yasmine Luevano on 10-24-2023 Albumin/Globulin [Mass ratio] 1.0 {ratio} 0.9-2.4 [facility] ALP [Catalytic activity/Vol] 127 U/L 45-117 [facility] ALT [Catalytic activity/Vol] 26 U/L 13-56 [facility] Cholesterol in HDL [Mass/Vol] 86 mg/dL >40 [facility] Comment on above: The drugs N-Acetylcy steine and Metamizole may falsely depress this assay. Reference Range HDL <40 mg/dL Low HDL Cholesterol HDL >or= 60 mg/dL High HDL Cholesterol Cholesterol in LDL [Mass/Vol] 43 mg/dL 0-130 [facility] CO2 [Moles/Vol] 28.0 mmol/L 21.0-32.0 [facility] Globulin (S) [Mass/Vol] 3.2 g/dL 2.2-4.2 [facility] Urea nitrogen/Creatinine [Mass ratio] 15.2 mg/mg 10-20 [facility] Laboratory - Hematology and Cell countsOrdered By: Yasmine Luevano on 10-24-2023 MCH (RBC) [Entitic mass] 29.3 pg 27.0-32.0 [facility] MCHC (RBC) [Mass/Vol] 32.3 g/dL 32-36 [facility] Nucleated RBC/100 WBC (Bld) [Ratio] 0 % 0-5 [facility] Platelet mean volume (Bld) [Entitic vol] 11.6 fL 6.2-12.0 [facility] Platelets (Bld) [#/Vol] 224 10*3/uL 150-450 [facility] No Panel InformationOrdered By: Yasmine Luevano on 10-24-2023 Estimated GFR (MDRD) Amer 72 mL/min >60 [facility] [facility] Comment on above: GFR Calc Estimated GFR (MDRD) Non-Af Amer 59 mL/min >60 [facility] Comment on above: Non- GFR Calc VLDL Cholesterol 23 mg/dL 5-40 [facility] RBC Auto (Bld) [#/Vol]Ordere d By: Yasmine Luevano on 10-24-2023 RBC (Bld) [#/Vol] 4.43 10*6/uL 4.2-5.4 [facility] Serum or plasma calcium aury urement (mass/volume)Ordered By: Yasmine Luevano on 10-24-2023 Calcium [Mass/Vol] 8.7 mg/dL 8.5-10.1 [facility] Serum or plasma creatinine m easurement (mass/volume)Ordered By: Yasmine Luevano on 10-24-2023 Creatinine [Mass/Vol] 0.99 mg/dL 0.55-1.02 [facility] Comment on above: The validity of the calculated GFR & GFRAA in patients over 70 years has not been determined. Clinical correlation is essential. Serum or plasma urea nitroge n measurement (mass/volume)Ordered By: Yasmine Luevano on 10-24-2023 Urea nitrogen [Mass/Vol] 15 mg/dL 7-18 [facility] Thin prep Papanicolaou smear with manual screeningOrdered By: Yasmine Luevano on 10-24-2023 Thin prep Papanicolaou smear with manual screening 3.3 g/dL 3.2-5.0 [facility] Thin prep Papanicolaou smear with manual screening 20 U/L 15-37 [facility] Thin prep Papanicolaou smear with manual screening 6 5-15 [facility] Absolute lymphocyte countOrd ered By: Dr. Luevano on 01-15-2023 Lymphocytes Auto (Unsp spec) [#/Vol] 2.21 10*3/uL 0.83-4.51 [facility] Basophil percentageOrdered B y: Dr. Luevano on 01-15-2023 Basophils/100 WBC (Bld) 0.8 % 0-1 [facility] Bilirubin [Mass/Vol] 0.80 mg/dL 0.20-1.00 [facility] Comment on above: For patients on eltr ombopag therapy, use of Dimension [place] TBIL is not recommended. Chloride [Moles/Vol] 107 mmol/L 98-107 [facility] Eosinophils/100 WBC (Bld) 2.8 % 0-5 [facility] Glucose [Mass/Vol] 102 mg/dL 74-106 [facility] Comment on above: Fasting Glucose resu lt from 100 to 125 mg/dL suggests IMPAIRED HOMEOSTASIS per A.D.A. criteria. Neutrophils (Bld) [#/Vol] 3.4 10*3/uL 2.0-7.7 [facility] Neutrophils/100 WBC (Bld) 52.3 % 47-70 [facility] Potassium [Moles/Vol] 3.9 mmol/L 3.5-5.1 [facility] Protein [Mass/Vol] 7.1 g/dL 6.4-8.2 [facility] Sodium [Moles/Vol] 141 mmol/L 136-145 [facility] WBC (Bld) [#/Vol] 6.5 10*3/uL 4.4-11.0 [facility] Bilirubin Test strip Ql (U)O rdered By: Dr. Luevano on 01-15-2023 Bilirubin Ql (U) Negative Negative [facility] Blood erythrocytes count (nu mber/volume)Ordered By: Dr. Luevano on 01-15-2023 RBC (Bld) [#/Vol] 4.40 10*6/uL 4.2-5.4 [facility] Blood hemoglobin measurement (mass/volume)Ordered By: Dr. Luevano on 01-15-2023 Hemoglobin (Bld) [Mass/Vol] 13.0 g/dL 12.0-15.0 [facility] Blood lymphocytes/100 leukoc ytesOrdered By: Dr. Luevano on 01-15-2023 Lymphocytes/100 WBC (Bld) 34.2 % 19-41 [facility] Blood monocytes/100 leukocyt esOrdered By: Dr. Luevano on 01-15-2023 Monocytes/100 WBC (Bld) 9.4 % 0-10 [facility] Blood platelet mean volumeOr dered By: Dr. Luevano on 01-15-2023 Platelet mean volume (Bld) [Entitic vol] 10.6 fL 6.2-12.0 [facility] Determination of erythrocyte mean corpuscular volume (MCV)Ordered By: Dr. Luevano on 01-15-2023 MCV (RBC) [Entitic vol] 92.0 fL 81-99 [facility] Dilute Diogenes's viper venom timeOrdered By: Dr. Luevano on 01-15-2023 dRVVT Coag (PPP) [Time] 40.5 s 0.0-47.0 [facility] Hematocrit Auto (Bld) [Volum e fraction]Ordered By: Dr. Luevano on 01-15-2023 Hematocrit (Bld) [Volume fraction] 40.5 % 37-47 [facility] INR in Blood by Coagulation assayOrdered By: Dr. Luevano on 01-15-2023 INR Coag (Bld) [Relative time] 0.9 {INR} [facility] Ketones Test strip Ql (U)Ord ered By: Dr. Luevano on 01-15-2023 Ketones Ql (U) Negative Negative [facility] Laboratory - Chemistry and C hemistry - challengeOrdered By: Dr. Luevano on 01-15-2023 ALP [Catalytic activity/Vol] 151 U/L 45-117 [facility] ALT [Catalytic activity/Vol] 27 U/L 13-56 [facility] CO2 [Moles/Vol] 29.0 mmol/L 21.0-32.0 [facility] Globulin (S) [Mass/Vol] 3.7 g/dL 2.2-4.2 [facility] Urea nitrogen/Creatinine [Mass ratio] 13.5 mg/mg 10-20 [facility] Laboratory - CoagulationOrde red By: Dr. Luevano on 01-15-2023 aPTT Coag (Bld) [Time] 29.3 s 24.1-36.2 [facility] PT Coag (PPP) [Time] 11.9 s 11.7-14.9 [facility] Laboratory - Hematology and Cell countsOrdered By: Dr. Luevano on 01-15-2023 Erythrocyte distribution width (RBC) [Entitic vol] 47.4 fL 35.1-43.9 [facility] Erythrocyte distribution width (RBC) [Ratio] 13.8 % 11.6-14.6 [facility] Immature granulocytes/100 WBC (Bld) 0.500 % 0.0-0.9 [facility] Comment on above: IG% - Immature Granu locytes (promyelocytes, myelocytes and metamyelocytes) > 1% indicates that a LEFT SHIFT is Present. MCH (RBC) [Entitic mass] 29.5 pg 27.0-32.0 [facility] Nucleated RBC/100 WBC (Bld) [Ratio] 0 % 0-5 [facility] Laboratory - Miscellaneous t estsOrdered By: Dr. Luevano on 01-15-2023 Service comment (Unsp spec) [Interp] Comment . [facility] Comment on above: Results do not indic ate the presence of a LupusAnticoagulant: abnormal high screening results (PTT-LA,dRVVT, mixing studies), may be due to medication (heparin,warfarin, aspirin), Factor inhibitors, anticardiolipinantibodies, or poor specimen integrity.Performed at: [facility] [address] [id number] Director: Carlito Bernal MD, Phone: [phone] MCHC Auto (RBC) [Mass/Vol]Or dered By: Dr. Luevano on 01-15-2023 MCHC (RBC) [Mass/Vol] 32.1 g/dL 32-36 [facility] Nitrite Test strip Ql (U)Ord ered By: Dr. Luevano on 01-15-2023 Nitrite Ql (U) Negative Negative [facility] No Panel InformationOrdered By: Dr. Luevano on 01-15-2023 Miscellaneous Test Comment MAILED SPECIMEN [facility] Estimated GFR (MDRD) Amer 63 mL/min >60 [facility] Comment on above: GFR Calc Estimated GFR (MDRD) Non-Af Amer 52 mL/min >60 [facility] Comment on above: Non- GFR Calc Hepatitis B Surface Antigen Non-Reactive Nonreactive [facility] Hepatitis C Antibody Non-Reactive Nonreactive [facility] Comment on above: Non Reactive: < 0.8 Equivocal: >/= 0.8 to < 1.0 Reactive: >/= 1.0The CDC recommends that a reactive/equivocal HCV antibody result be followed up by the HCV Nucleic Acid Amplificationtest ([id number]) Platelets bldOrdered By: Dr. Luevano on 01-15-2023 Platelets (Bld) [#/Vol] 283 10*3/uL 150-450 [facility] Protein Test strip Ql (U)Ord ered By: Dr. Luevano on 01-15-2023 Protein Ql (U) 15 mg/dl Negative [facility] Serum hepatitis B virus surf alek antibody IgG detectionOrdered By: Dr. Luevano on 01-15-2023 HBV surface IgG Ql (S) Non-Reactive [facility] Comment on above: Non Reactive: Incons istent with immunity less than <10 mIU/mL Reactive: Consistent with immunity greater than or equal to 10 mIU/mL Serum or plasma albumin aury urement (mass/volume)Ordered By: Dr. Luevano on 01-15-2023 Albumin [Mass/Vol] 3.4 g/dL 3.2-5.0 [facility] Serum or plasma albumin/glob ulin mass ratioOrdered By: Dr. Luevano on 01-15-2023 Albumin/Globulin [Mass ratio] 0.9 {ratio} 0.9-2.4 [facility] Serum or plasma calcium aury urement (mass/volume)Ordered By: Dr. Luevano on 01-15-2023 Calcium [Mass/Vol] 9.7 mg/dL 8.5-10.1 [facility] Serum or plasma creatinine m easurement (mass/volume)Ordered By: Dr. Luevano on 01-15-2023 Creatinine [Mass/Vol] 1.11 mg/dL 0.55-1.02 [facility] Comment on above: The validity of the calculated GFR & GFRAA in patients over 70 years has not been determined. Clinical correlation is essential. Serum or plasma urea nitroge n measurement (mass/volume)Ordered By: Dr. Luevano on 01-15-2023 Urea nitrogen [Mass/Vol] 15 mg/dL 7-18 [facility] Thin prep Papanicolaou smear with manual screeningOrdered By: Dr. Luevano on 01-15-2023 Thin prep Papanicolaou smear with manual screening 19 U/L 15-37 [facility] Thin prep Papanicolaou smear with manual screening 5 5-15 [facility] Thin prep Papanicolaou smear with manual screening 37.0 sec 0.0-47.6 [facility] Thin prep Papanicolaou smear with manual screening 1.14 Ratio 0.00-1.34 [facility] Thin prep Papanicolaou smear with manual screening 34.0 sec 0.0-43.5 [facility] Thin prep Papanicolaou smear with manual screening Comment: . [facility] Comment on above: No lupus anticoagula nt was detected. Thrombin time in platelet po or plasmaOrdered By: Dr. Luevano on 01-15-2023 Thrombin time Coag (PPP) [Time] 16.3 sec 0.0-23.0 [facility] Urine blood detectionOrdered By: Dr. Luevano on 01-15-2023 RBC Ql (U) 25 /ul Negative [facility] Urine clarityOrdered By: Dr. Luevano on 01-15-2023 Clarity (U) Sl. Cloudy Clear [facility] Urine color determinationOrd ered By: Dr. Luevano on 01-15-2023 Color (U) Yellow Yellow [facility] Urine creatinine measurement (mass/volume)Ordered By: Dr. Luevano on 01-15-2023 Creatinine (U) [Mass/Vol] 125.00 mg/dL NO RANGE EST. [facility] Urine glucose detectionOrder ed By: Dr. Luevano on 01-15-2023 Glucose Ql (U) Normal mg/dl Normal [facility] Urine leukocyte esterase det ection by dipstickOrdered By: Dr. Luevano on 01-15-2023 Leukocyte esterase Test strip Ql (U) Negative Negative [facility] Urine pHOrdered By: Dr. Jono mckee on 01-15-2023 pH (U) 6.0 [pH] 5.0 - 8.0 [facility] Urine protein measurement (m ass/volume)Ordered By: Dr. Luevano on 01-15-2023 Protein (U) [Mass/Vol] 14.5 mg/dL 0.0-11.8 [facility] Urine protein/creatinine mas s ratioOrdered By: Dr. Luevano on 01-15-2023 Protein/Creatinine (U) [Mass ratio] 116 mg/g CRE 0-200 [facility] Urine specific gravity measu rementOrdered By: Dr. Luevano on 01-15-2023 Specific gravity (U) [Rel density] 1.015 1.002-1.030 [facility] Urobilinogen Auto test strip Ql (U)Ordered By: Dr. Luevano on 01-15-2023 Urobilinogen Ql (U) Normal mg/dl Normal [facility] LABORATORYOrdered By: SYSTEM SYSTEM on 11-23-2022 Albumin BCP dye [Mass/Vol] 3.7 G/dL Invalid Interpretation Code 3.4 - 4.8 G/dL AO ADM SS Albumin/Globulin [Mass ratio] 1.2 {ratio} Invalid Interpretation Code 1.1 - 2.5 ratio AO ADM SS ALP [Catalytic activity/Vol] 158 U/L Invalid Interpretation Code 40 - 135 U/L AO ADM SS ALT With P-5'-P [Catalytic activity/Vol] 32 U/L Invalid Interpretation Code 14 - 59 U/L AO ADM SS AST With P-5'-P [Catalytic activity/Vol] 24 U/L Invalid Interpretation Code 10 - 40 U/L AO ADM SS Bilirubin [Mass/Vol] 1.0 mg/dL Invalid Interpretation Code 0.2 - 1.0 mg/dL AO ADM SS Calcium [Mass/Vol] 9.5 mg/dL Invalid Interpretation Code 8.4 - 10.2 mg/dL AO ADM SS Chloride [Moles/Vol] 104 mmol/L Invalid Interpretation Code 98 - 107 mmol/L AO ADM SS CK [Catalytic activity/Vol] 63 U/L Invalid Interpretation Code 26 - 192 U/L AO ADM SS CO2 [Moles/Vol] 27 mmol/L Invalid Interpretation Code 23 - 31 mmol/L AO ADM SS Creatinine [Mass/Vol] 1.05 mg/dL Invalid Interpretation Code 0.55 - 1.02 mg/dL AO ADM SS Electrolyte Balance 13.0 mEq/L Invalid Interpretation Code 4.0 - 15.0 mEq/L AO ADM SS GFR/1.73 sq M.predicted among blacks MDRD (S/P/Bld) [Vol rate/Area] 63 ml/min/1.73sqm Invalid Interpretation Code AO Chemistry S GFR/1.73 sq M.predicted among non-blacks MDRD (S/P/Bld) [Vol rate/Area] 52 ml/min/1.73sqm Invalid Interpretation Code AO Chemistry S Globulin 3.1 G/dL Invalid Interpretation Code AO ADM SS Glucose [Mass/Vol] 129 mg/dL Invalid Interpretation Code 80 - 115 mg/dL AO ADM SS Potassium [Moles/Vol] 3.9 mmol/L Invalid Interpretation Code 3.5 - 5.1 mmol/L AO ADM SS Protein [Mass/Vol] 6.8 G/dL Invalid Interpretation Code 6.4 - 8.2 G/dL AO ADM SS Sodium [Moles/Vol] 144 mmol/L Invalid Interpretation Code 136 - 145 mmol/L AO ADM SS Urea nitrogen [Mass/Vol] 10 mg/dL Invalid Interpretation Code 7 - 18 mg/dL AO ADM SS Urea nitrogen/Creatinine [Mass ratio] 10 ratio Invalid Interpretation Code 7 - 27 ratio AO ADM SS LABORATORYOrdered By: Nolvia Fairchild on 11-23-2022 Basophil, Absolute 0.0 103/mcL Invalid Interpretation Code 0.0 - 0.2 10^3/mcL AO Workflow SS Basophils/100 WBC (Bld) 0.4 % Invalid Interpretation Code 0.0 - 2.5 % AO Workflow SS Eosinophil, Absolute 0.1 103/mcL Invalid Interpretation Code 0.0 - 0.4 10^3/mcL AO Workflow SS Eosinophils/100 WBC (Bld) 1.2 % Invalid Interpretation Code 0.0 - 7.0 % AO Workflow SS Erythrocyte distribution width (RBC) [Ratio] 14.3 % Invalid Interpretation Code 11.5 - 14.5 % AO Workflow SS Hematocrit (Bld) [Volume fraction] 39.8 % Invalid Interpretation Code 37.0 - 47.0 % AO Workflow SS Hemoglobin (Bld) [Mass/Vol] 13.4 G/dL Invalid Interpretation Code 12.0 - 16.0 G/dL AO Workflow SS Lymphocyte, Absolute 2.0 103/mcL Invalid Interpretation Code 0.8 - 3.9 10^3/mcL AO Workflow SS Lymphocytes/100 WBC (Bld) 23.8 % Invalid Interpretation Code 10.0 - 50.0 % AO Workflow SS MCH (RBC) [Entitic mass] 30.0 pg Invalid Interpretation Code 27.0 - 31.2 pg AO Workflow SS MCHC 33.7 G/dL Invalid Interpretation Code 33.0 - 37.0 G/dL AO Workflow SS MCV (RBC) [Entitic vol] 88.8 fL Invalid Interpretation Code 80.0 - 94.0 fL AO Workflow SS Monocyte, Absolute 0.5 103/mcL Invalid Interpretation Code 0.2 - 1.0 10^3/mcL AO Workflow SS Monocytes/100 WBC (Bld) 6.5 % Invalid Interpretation Code 1.7 - 13.0 % AO Workflow SS Neutrophil, Absolute 5.6 103/mcL Invalid Interpretation Code 2.9 - 6.2 10^3/mcL AO Workflow SS Neutrophils/100 WBC (Bld) 68.1 % Invalid Interpretation Code 37.0 - 80.0 % AO Workflow SS Platelet mean volume (Bld) [Entitic vol] 8.6 fL Invalid Interpretation Code 7.4 - 10.4 fL AO Workflow SS Platelets (Bld) [#/Vol] 254 103/mcL Invalid Interpretation Code 130 - 400 10^3/mcL AO Workflow SS RBC (Bld) [#/Vol] 4.48 106/mcL Invalid Interpretation Code 4.20 - 5.40 10^6/mcL AO Workflow SS WBC (Bld) [#/Vol] 8.2 103/mcL Invalid Interpretation Code 4.6 - 10.8 10^3/mcL AO Workflow SS LABORATORYOrdered By: Chance Marie on 03-14-2022 Albumin BCP dye [Mass/Vol] 3.6 G/dL Invalid Interpretation Code 3.4 - 4.8 G/dL AO ADM SS Albumin/Globulin [Mass ratio] 1.2 {ratio} Invalid Interpretation Code 1.1 - 2.5 ratio AO ADM SS ALP [Catalytic activity/Vol] 167 U/L Invalid Interpretation Code 40 - 135 U/L AO ADM SS ALT With P-5'-P [Catalytic activity/Vol] 25 U/L Invalid Interpretation Code 14 - 59 U/L AO ADM SS AST With P-5'-P [Catalytic activity/Vol] 20 U/L Invalid Interpretation Code 10 - 40 U/L AO ADM SS Bilirubin [Mass/Vol] 0.7 mg/dL Invalid Interpretation Code 0.2 - 1.0 mg/dL AO ADM SS Calcium [Mass/Vol] 9.3 mg/dL Invalid Interpretation Code 8.4 - 10.2 mg/dL AO ADM SS Chloride [Moles/Vol] 103 mmol/L Invalid Interpretation Code 98 - 107 mmol/L AO ADM SS CO2 [Moles/Vol] 30 mmol/L Invalid Interpretation Code 23 - 31 mmol/L AO ADM SS Creatinine [Mass/Vol] 1.07 mg/dL Invalid Interpretation Code 0.55 - 1.02 mg/dL AO ADM SS Electrolyte Balance 7.0 mEq/L Invalid Interpretation Code 4.0 - 15.0 mEq/L AO ADM SS Free T4 [Mass/Vol] 0.93 ng/dL Invalid Interpretation Code 0.76 - 1.46 ng/dL AO ADM SS Globulin 3.0 G/dL Invalid Interpretation Code AO ADM SS Glucose [Mass/Vol] 80 mg/dL Invalid Interpretation Code 80 - 115 mg/dL AO ADM SS Potassium [Moles/Vol] 4.2 mmol/L Invalid Interpretation Code 3.5 - 5.1 mmol/L AO ADM SS Protein [Mass/Vol] 6.6 G/dL Invalid Interpretation Code 6.4 - 8.2 G/dL AO ADM SS Sodium [Moles/Vol] 140 mmol/L Invalid Interpretation Code 136 - 145 mmol/L AO ADM SS TSH Qn 1.87 m[IU]/L Invalid Interpretation Code 0.36 - 3.74 mcIU/mL AO ADM SS Urea nitrogen [Mass/Vol] 18 mg/dL Invalid Interpretation Code 7 - 18 mg/dL AO ADM SS Urea nitrogen/Creatinine [Mass ratio] 17 ratio Invalid Interpretation Code 7 - 27 ratio AO ADM SS LABORATORYOrdered By: Isadora Wang on 03-14-2022 Basophil, Absolute 0.0 103/mcL Invalid Interpretation Code 0.0 - 0.2 10^3/mcL AO Workflow SS Basophils/100 WBC (Bld) 0.5 % Invalid Interpretation Code 0.0 - 2.5 % AO Workflow SS Eosinophil, Absolute 0.1 103/mcL Invalid Interpretation Code 0.0 - 0.4 10^3/mcL AO Workflow SS Eosinophils/100 WBC (Bld) 1.6 % Invalid Interpretation Code 0.0 - 7.0 % AO Workflow SS Erythrocyte distribution width (RBC) [Ratio] 14.3 % Invalid Interpretation Code 11.5 - 14.5 % AO Workflow SS Hematocrit (Bld) [Volume fraction] 38.2 % Invalid Interpretation Code 37.0 - 47.0 % AO Workflow SS Hemoglobin (Bld) [Mass/Vol] 12.8 G/dL Invalid Interpretation Code 12.0 - 16.0 G/dL AO Workflow SS Lymphocyte, Absolute 2.3 103/mcL Invalid Interpretation Code 0.8 - 3.9 10^3/mcL AO Workflow SS Lymphocytes/100 WBC (Bld) 37.0 % Invalid Interpretation Code 10.0 - 50.0 % AO Workflow SS MCH (RBC) [Entitic mass] 30.0 pg Invalid Interpretation Code 27.0 - 31.2 pg AO Workflow SS MCHC 33.5 G/dL Invalid Interpretation Code 33.0 - 37.0 G/dL AO Workflow SS MCV (RBC) [Entitic vol] 89.5 fL Invalid Interpretation Code 80.0 - 94.0 fL AO Workflow SS Monocyte, Absolute 0.7 103/mcL Invalid Interpretation Code 0.2 - 1.0 10^3/mcL AO Workflow SS Monocytes/100 WBC (Bld) 11.2 % Invalid Interpretation Code 1.7 - 13.0 % AO Workflow SS Neutrophil, Absolute 3.0 103/mcL Invalid Interpretation Code 2.9 - 6.2 10^3/mcL AO Workflow SS Neutrophils/100 WBC (Bld) 49.7 % Invalid Interpretation Code 37.0 - 80.0 % AO Workflow SS Platelet mean volume (Bld) [Entitic vol] 9.3 fL Invalid Interpretation Code 7.4 - 10.4 fL AO Workflow SS Platelets (Bld) [#/Vol] 235 103/mcL Invalid Interpretation Code 130 - 400 10^3/mcL AO Workflow SS RBC (Bld) [#/Vol] 4.27 106/mcL Invalid Interpretation Code 4.20 - 5.40 10^6/mcL AO Workflow SS WBC 6.1 103/mcL Invalid Interpretation Code 4.6 - 10.8 10^3/mcL AO Workflow SS LABORATORYOrdered By: SYSTEM SYSTEM on 03-14-2022 GFR 62 ml/min/1.73sqm Invalid Interpretation Code AO Chemistry S GFR Non- 51 ml/min/1.73sqm Invalid Interpretation Code AO Chemistry S Monocyte distribution width Auto (Bld) [Entitic vol] Not Performed 1 *NA* (03/14/22 12:27 PM) Invalid Interpretation Code 0.00 - 20.00 AO Hematology S Comment on above: Result Comment: MDW testing performed only on adult ER patients between the ages of 18-89 years. Vital Signs Date Time Vital Sign Value Performing Clinician Tonja salcido 11-04-2024 08:45-0400 Body temperature 97.59 [degF] Fawad Garcia APRN.CNP Work Phone: [facility] 11-04-2024 08:45-0400 Body weight 113.4 kg Fawad Garcia APRN.CNP Work Phone: [facility] 11-04-2024 08:45-0400 Diastolic blood pressure 91 mm[Hg] Fawad Garcia SCOOP FILLER.[employer]OURCE ANALYST Work Phone: [facility] 11-04-2024 08:45-0400 Heart rate 60 /min Fawad Garcia SCOOP FILLER.[employer]OURCE ANALYST Work Phone: [facility] 11-04-2024 08:45-0400 Respiratory rate 18 /min Fawad Garcia SCOOP FILLER.[employer]OURCE ANALYST Work Phone: [facility] 11-04-2024 08:45-0400 SaO2% (BldA) [Mass fraction] 100 % Fawad Garcia SCOOP FILLER.[employer] RESOURCE ANALYST Work Phone: [facility] 11-04-2024 08:45-0400 Systolic blood pressure 147 mm[Hg] Fawad Garcia SCOOP FILLER.[employer] RESOURCE ANALYST Work Phone: [facility] 05-13-2022 10:35-0400 Body temperature 97.39 [degF] Denisha Fatima MD Work Phone: [facility] 05-13-2022 10:35-0400 Body weight 114.22 kg Denisha Fatima MD Work Phone: [facility] 05-13-2022 10:35-0400 Respiratory rate 18 /min Denisha Fatima MD Work Phone: [facility] 05-13-2022 10:35-0400 SaO2% (BldA) [Mass fraction] 97 % Denisha Fatima MD Work Phone: [facility] Encounters Encounter Date Encounter Type Care Provider Facility Start: 05-15-2025 End: 05-19-2025 ambulatory ALICIA FAUSTIN SCOOP FILLER-[employer] RESOURCE ANALYST Facility:[facility] Start: 05-15-2025 End: 05-19-2025 Outreach Lab ANITA RIVERA SCOOP FILLER-[employer] RESOURCE ANALYST [facility] Start: 04-27-2025 End: 04-27-2025 ambulatory ALICIA FAUSTIN SCOOP FILLER-[employer]OURCE ANALYST Facility:[facility] Start: 04-27-2025 End: 04-27-2025 Patient encounter procedure ALICIA Marlon LOGAN SCO[employer] FILLER-[employer]OURCE ANALYST [facility] Start: 11-19-2024 End: 11-19-2024 ambulatory Alicia Logan Facility:[facility] Start: 11-10-2024 End: 11-10-2024 ambulatory Alicia Logan STEAM ROLLER OPERATOR-C Work Phone: [facility] Work Phone: Start: 11-10-2024 End: 11-10-[address] Yasmine Luevano MD -Laboratory, [place] Work Phone: Start: 11-10-2024 End: 11-10-2024 ambulatory [facility] Facility:[facility] Start: 11-06-2024 End: 01-06-2025 Follow-up encounter Denise Mao APRN.[employer] RESOURCE ANALYST [facility] Start: 11-04-2024 End: 11-04-2024 Subsequent hospital visit by physician Xr [facility] [place] Work Phone: [facility] Comment on above: Acute pain of right knee [M25.561] Start: 11-04-2024 End: 11-04-2024 ambulatory SELF Facility:[id number] Start: 11-04-2024 End: 11-04-2024 Office outpatient visit 25 minutes Fawad Garcia APRN.[employer]OURCE ANALYST Work Phone: [facility] Comment on above: Acute pain of right knee (Primary Dx); Primary osteoarthritis of right knee Start: 05-21-2024 End: 05-21-2024 ambulatory [facility] Facility:[facility] Start: 03-03-2024 End: 03-03-2024 ambulatory ALICIA Marlon LOGAN SCOOP FILLER-[employer] RESOURCE ANALYST Facility:[facility] Start: 03-03-2024 End: 03-03-2024 Patient encounter procedure ALICIA S LOGAN SCOOP FILLER-[employer] RESOURCE ANALYST [facility] Start: 02-13-2024 End: 02-13-2024 ambulatory ALICIA CARDENASMER SCOOP FILLER-[employer] RESOURCE ANALYST Facility:[facility] Start: 02-13-2024 End: 02-13-2024 Patient encounter procedure ALICIA Mason LOGAN SCOOP FILLER-[employer] RESOURCE ANALYST [facility] Start: 01-23-2024 End: 01-27-2024 ambulatory ROBB MAST SCOOP FILLER-[employer] RESOURCE ANALYST Facility:[facility] Start: 01-23-2024 End: 01-27-2024 Outreach Lab ROBB MAST SCOOP FILLER-[employer]OURCE ANALYST [facility] Start: 12-20-2023 End: 12-24-2023 ambulatory VIVIANA NARVAEZ Facility:[facility] Start: 11-13-2023 End: 11-13-2023 ambulatory ALICIA FAUSTIN SCOOP FILLER-[employer] RESOURCE ANALYST Facility:[facility] Start: 11-13-2023 End: 11-13-2023 Patient encounter procedure ALICIA FAUSTIN SCOOP FILLER-[employer] RESOURCE ANALYST [facility] Start: 10-24-2023 End: 10-24-2023 ambulatory [facility] Work Phone: Start: 10-24-2023 End: 10-24-2023 Patient encounter procedure [facility] Work Phone: Start: 01-15-2023 End: 01-15-2023 ambulatory [facility] Work Phone: Start: 01-15-2023 End: 01-15-2023 Patient encounter procedure [facility] Start: 11-23-2022 End: 11-23-2022 Patient encounter procedure PHY WO ID REFERRING [facility] Start: 06-21-2022 End: 06-21-2022 Patient encounter procedure ALICIA CARDENASMER SCOOP FILLER-ENTER[employer] RESOURCE ANALYST [facility] Start: 05-13-2022 End: 05-13-2022 Office outpatient new 30 minutes Denisha Fatima MD Work Phone: [facility] Comment on above: Acute pain of right knee (Primary Dx) Start: 05-09-2022 End: 05-09-2022 Patient encounter procedure ALICIA FAUSTIN [employer] F[employer] RESOURCE ANALY[facility] Start: 03-14-2022 End: 03-14-2022 Patient encounter procedure ALICIA FAUSTIN [employer] RESOURCE ANALYST [facility] Procedures Date Procedure Procedure Detail Performing Clinician Start: 08-06-1992 Ligation of fallopia n tube ALICIA FAUSTIN SCO[employer] FILLER-ENTER[employer] RESOURCE ANALYST Cyst (disorder) ROBB MAST S[employer] FILLER-ENTER[employer] RESOURCE ANALYST Comment on above: cyst excision left e ar None (qualifier value) VANESA FAUSTIN SCO[employer] FILLER-ENTER[employer]ISE RESOURCE ANALYST Plan of Treatment Date Care Activity Detail Author Start: 2030 RSV Vaccine (1 - 1-d ose 75+ series) RSV Vaccine (1 - 1-dose 75+ series) [facility] Start: 04-06-2025 Influenza vaccination Influenz a Vaccine (Season Ended) [facility] Start: 08-06-2024 Advance Directive Discussion Advance Directive Discussion [facility] Start: 04-06-2024 Covid-19 Vaccine ( season) Covid-19 Vaccine ( season) [facility] Start: 04-06-2024 Influenza vaccination Influenza Vacc ine (#1) [facility] Start: 04-06-2022 Influenza vaccination INFLUENZA (#1) [facility] Start: 09-16-2021 COVID-19 VACCINE (3 - Booster for Brook series) COVID-19 VACCINE (3 - Booster for Brook series) [facility] Start: 08-06-2021 ADVANCE DIRECTIVE DISCUSSION ADVANCE DIRECTIVE DISCUSSION [facility] Start: 08-06-2021 DEPRESSION ASSESSMENT DEPRESSION ASS ESSMENT [facility] Start: 02-16-2020 BONE DENSITY BONE DENSITY [facility] Start: 02-16-2020 Screening for osteoporosis Bone Density Screening [facility] Start: 2005 Pneumococcal Vaccine : 50+ (1 of 1 - PCV) Pneumococcal Vaccine: 50+ (1 of 1 - PCV) [facility] Start: 2005 SHINGRIX VACCINE (1 of 2) SHINGRIX VACCINE (1 of 2) [facility] Start: 02-16-2000 COLOGUARD (FIT-DNA) COLOGUARD (FIT-D NA) [facility] Start: 02-16-2000 Colonoscopy COLONOSCOPY [facility] Start: 02-16-2000 COLORECTAL CANCER SCREENING COLORECTAL CANCER SCREENING [facility] Start: 02-16-[address] COLONOGRAPHY [facility] Start: 02-16-2000 DIABETES SCREEN DIABETES SCREEN [facility] Start: 02-16-2000 Diabetes Screening Diabetes Screenin g [facility] Start: 02-16-2000 FECAL OCCULT BLOOD FECAL OCCULT BLOO D [facility] Start: 02-16-2000 Lipid panel Lipid Screening [facility] Start: 02-16-2000 LIPID SCREEN LIPID SCREEN [facility] Start: 02-16-2000 Screening for malign ant neoplasm of colon [facility] Start: 02-16-2000 SIGMOIDOSCOPY SIGMOIDOSCOPY [facility] Start: 1995 Mammography MAMMOGRAM [facility] Start: 1995 Screening for malign ant neoplasm of breast Mammogram Screening [facility] Start: 1974 Urine microalbumin profile [facility] Start: 1973 Anxiety Screening Anxiety Screening [facility] Start: 1973 Depression Screening Depression Scre ening [facility] Start: 1973 HEPATITIS C SCREENING HEPATITIS C SC [facility] Start: 1973 Hepatitis C screening Hepatitis C [facility] Start: 1961 PNEUMOCOCCAL: 65+ (1 - PCV) PNEUMOCOCCAL: 65+ (1 - PCV) [facility] End: 12-04-2025 XR Knee - right AP and Lateral and oblique XR KNEE INJURY 4V AP/LAT/OBLS RIGHT Radiology Routine Acute pain of right knee Primary osteoarthritis of right knee 1 Occurrences starting 11/04/2024 until 12/04/2025 [facility] Work Phone: Comment on above: 1 Occurrences starti ng 11/04/2024 until 12/04/2025 XR Knee - right AP a nd Lateral and oblique XR KNEE INJURY 4V AP/LAT/OBLS RIGHT Radiology Routine Acute pain of right knee 11/04/2024 10:15 AM EDT [facility] Immunizations Immunization Date Immunization Notes Care Provider Max boothe 07-22-2021 SARS-CoV-2 (COVID-19 ) Ad26 vaccine, recombinant ALICIAViroclinics BiosciencesMER S[employer] FILLER-ENTERPRISE RESOURCE ANALYST [facility] 10-25-2020 SARS-CoV-2 (COVID-19 ) Ad26 vaccine, recombinant ALICIA LOGAN [employer] F[employer] RESOURCE ANALYST [facility] Comment on above: Result Comment: 2021: [id number] 06-24-2013 influenza virus vaccine, unspecified formulation ALICIA LOGAN [employer] F[employer]ER[employer] RESOURCE ANALYST [facility] Payers Date Payer Category Payer Self-pay 2022 Private Health Insurance [id number] 2021 Medicare (Managed Care) PRIMETIM E [id number] 2021 Unknown PRIMETIME PRIMET MAXIMILIANO HMO POS [id number] 2021-Present [phone] [address] [facility] [place] [address] O [id number] 2021 Unknown [id number] 1955 Unknown [id number] 1955 Unknown [id number] 1955 Unknown [id number] 1955 Unknown [id number] 1955 Unknown [id number] 1955 Unknown [id number] 1955 Unknown [id number] 27 Unknown [id number] 62 Unknown [id number] 62 Unknown [id number] 62 Social History Date Type Detail Facility Start: 03-23-2021 End: 05-13-2022 Tobacco smoking status Smokes tobacco daily (finding) [facility] Comment on above: Cutting down on smok ing Start: 1955 Sex Assigned At Female A [facility] History of tobacco use Cigarette Smoker C [facility] Start: 05-13-2022 End: 11-04-2024 Tobacco use and exposure Smokeless tobacco non-user [facility] Start: 05-13-2022 End: 11-04-2024 Alcohol intake Current drinker of alcohol (finding) [facility] Start: 1955 Sex Assigned At Not on file C [facility] Start: 05-03-2022 End: 05-13-2022 Exposure to SARS-CoV-2 (event) Not sure [facility] Start: 01-23-2024 End: 03-17-2025 Tobacco smoking status Ex-smoker (finding) [facility] History of tobacco use Current smoker [facility] History of tobacco use Passive smoker [facility] Start: 05-13-2022 End: 11-04-2024 History of Social function [facility] Start: 05-13-2022 End: 11-04-2024 Tobacco use panel [facility] Adult Depression Screening Assessment 0 [facility] Start: 11-04-2024 Alcohol Comment occ [facility] Tobacco smoking stat [facility] Unknown if ever smoked [facility] Work Phone: Start: 01-29-2019 End: 11-14-2024 Sex Female (finding) [facility] Sexual Orientation [facility] Clinical Notes 05-13-2022 to 03-17-2025 LaboratoryRadiologyZeb Chaidez LPN - 11/04/2024 9:57 AM EDTFawad Garcia, SCOOP FILLER.[employer] RESOURCE ANALYST - 11/04/2024 9:56 AM EDTPatient Robbie Vivar RT(R) - 11/04/2024 9:40 AM EDT Note Date & Type Note Facility 03-17-2025 Evaluation + Plan note Future Scheduled TestsComplete Blood Count 03/17/25Lipid Profile 03/17/25Lipid Profile 09/24/24Complete Metabolic Panel 03/17/25MA Mammo Screening Bilateral w/ [place] 09/24/24 [facility] 11-04-2024 Note HNO ID: [id number] Author: ZEB CHAIDEZ LPN Service: ? Author Type: LICENSED NURSE Type: Progress Notes Filed: 11/04/2024 10:44 Note Text: Knee brace fit and applied per order to right knee. Patient educated on use and voices understanding. Patient tolerated well. Zeb Chaidez LPN [facility] 11-04-2024 History of Presen t illness Narrative Knee brace fit and applied per order to right knee. Patient educated on use and voices understanding. Patient tolerated well. Zeb Chaidez LPN [facility] BECKY Moreland is a 69 year old female. Patient presents with: Right Knee Pain: Right knee pain x 5 days Ongoing problem - no injury HPI Right Knee Pain: - Acute onset of right knee pain x4-5 days. - Describes pain as "electric shock" or stabbing, localized to the medial aspect of the knee. - Pain began while cleaning the basement; no specific injury or trauma reported. - Aggravated by movement; alleviated by rest and elevation. - Wore a brace yesterday to prevent "catching" sensation. - Pain is severe enough to disrupt sleep. - Denies known trauma or injury. - No history of diabetes or heart disease. Review of Systems Constitutional: Negative. HENT: Negative. Respiratory: Negative. Cardiovascular: Negative. Gastrointestinal: Negative. Musculoskeletal: Positive for arthralgias. Negative for joint swelling. Skin: Negative for color change and rash. Neurological: Negative. All other systems reviewed and are negative. Constitutional: (+) sleep disturbance Musculoskeletal: (+) right knee pain, (+) mild swelling Skin: (-) rash Objective BP 147/91 Pulse 60 Temp 36.4 C (97.6 F) (Temporal) Resp 18 Wt 113.4 kg (250 lb) SpO2 100% Physical Exam Vitals and nursing note reviewed. Constitutional: Appearance: Normal appearance. Musculoskeletal: Right knee: No swelling, effusion, erythema, ecchymosis or bony tenderness. Normal range of motion. No tenderness. No LCL laxity, MCL laxity, ACL laxity or PCL laxity. Normal alignment. Normal pulse. Instability Tests: Anterior drawer test negative. Posterior drawer test negative. Anterior Kevan test negative. Medial Sukumar test negative and lateral Sukumar test negative. Left knee: Normal. Neurological: Mental Status: She is alert. General: No acute distress. MSK/Ext: No swelling, no crepitus, negative anterior and posterior drawer signs. 1. Acute pain of right knee (M25.561) 2. Primary osteoarthritis of right knee (M17.11) - Onset of right knee pain 4-5 days ago, described as electric shock or stabbing pain, exacerbated by movement; no known injury or trauma. - Physical exam reveals tenderness on the medial aspect of the knee; no crepitus or significant swelling noted. Anterior and posterior drawer tests negative, suggesting no ACL or PCL instability. Sukumar's test negative, indicating no meniscal tear. - Differential diagnosis includes osteoarthritis - Ordered X-ray of the right knee to evaluate for arthritic changes or bone spurs. - Prescribed Meloxicam (Mobic) for anti-inflammatory effect; advised against concurrent use of other NSAIDs such as Advil or naproxen. - Recommended continued use of knee brace for support. -Discussed x-ray results of no acute finding, we will call with any discrepancy from radiologist interpretation. She should follow-up with her primary care doctor for any ongoing pain. Brace given recommended wearing it while up and moving. She should elevate and ice 20 minutes a day for comfort. She states that she does feel like it has improved slightly today after resting yesterday. The patient consented to the use of [employer] software for draft documentation of the visit consistent with [facility] s Notice of Privacy Practices. Differential Diagnoses - Osteoarthritis is more likely for the following reason(s): suggested by H&P - Meniscal tear is less likely for the following reason(s): H&P not suggestive Procedures documented in this encounter [facility] 11-04-2024 Note HNO ID: [id number] Author: FAWAD GARCIA APRN.ERIK Service: ? Author Type: Nurse Practitioner Type: Progress Notes Filed: 11/04/2024 10:44 Note Text: [facility] Moreland is a 69 year old female. Patient presents with: Right Knee Pain: Right knee pain x 5 days Ongoing problem - no injury HPI Right Knee Pain: - Acute onset of right knee pain x4-5 days. - Describes pain as "electric shock" or stabbing, localized to the medial aspect of the knee. - Pain began while cleaning the basement; no specific injury or trauma reported. - Aggravated by movement; alleviated by rest and elevation. - Wore a brace yesterday to prevent "catching" sensation. - Pain is severe enough to disrupt sleep. - Denies known trauma or injury. - No history of diabetes or heart disease. Review of Systems Constitutional: Negative. HENT: Negative. Respiratory: Negative. Cardiovascular: Negative. Gastrointestinal: Negative. Musculoskeletal: Positive for arthralgias. Negative for joint swelling. Skin: Negative for color change and rash. Neurological: Negative. All other systems reviewed and are negative. Constitutional: (+) sleep disturbance Musculoskeletal: (+) right knee pain, (+) mild swelling Skin: (-) rash Objective BP 147/91 Pulse 60 Temp 36.4 ?C (97.6 ?F) (Temporal) Resp 18 Wt 113.4 kg (250 lb) SpO2 100% Physical Exam Vitals and nursing note reviewed. Constitutional: Appearance: Normal appearance. Musculoskeletal: Right knee: No swelling, effusion, erythema, ecchymosis or bony tenderness. Normal range of motion. No tenderness. No LCL laxity, MCL laxity, ACL laxity or PCL laxity. Normal alignment. Normal pulse. Instability Tests: Anterior drawer test negative. Posterior drawer test negative. Anterior Kevan test negative. Medial Sukumar test negative and lateral Sukumar test negative. Left knee: Normal. Neurological: Mental Status: She is alert. General: No acute distress. MSK/Ext: No swelling, no crepitus, negative anterior and posterior drawer signs. 1. Acute pain of right knee (M25.561) 2. Primary osteoarthritis of right knee (M17.11) - Onset of right knee pain 4-5 days ago, described as electric shock or stabbing pain, exacerbated by movement; no known injury or trauma. - Physical exam reveals tenderness on the medial aspect of the knee; no crepitus or significant swelling noted. Anterior and posterior drawer tests negative, suggesting no ACL or PCL instability. Sukumar's test negative, indicating no meniscal tear. - Differential diagnosis includes osteoarthritis - Ordered X-ray of the right knee to evaluate for arthritic changes or bone spurs. - Prescribed Meloxicam (Mobic) for anti-inflammatory effect; advised against concurrent use of other NSAIDs such as Advil or naproxen. - Recommended continued use of knee brace for support. -Discussed x-ray results of no acute finding, we will call with any discrepancy from radiologist interpretation. She should follow-up with her primary care doctor for any ongoing pain. Brace given recommended wearing it while up and moving. She should elevate and ice 20 minutes a day for comfort. She states that she does feel like it has improved slightly today after resting yesterday. The patient consented to the use of [employer] software for draft documentation of the visit consistent with [facility]?s Notice of Privacy Practices. Differential Diagnoses - Osteoarthritis is more likely for the following reason(s): suggested by HANDP - Meniscal tear is less likely for the following reason(s): HANDP not suggestive Procedures [facility] 11-04-2024 Instructions Fawad Garcia APRN.ENTERPRISE RESOURCE ANALYST - 11/04/2024 9:48 AM EDT Knee arthritis You have been diagnosed with knee arthritis or osteoarthritis. Although there are many different stages of arthritis, the treatment generally remains the same and includes the following. Strengthening exercises for your hamstrings (back of upper leg), quadriceps (front of upper leg), buttocks, and calf muscles. The surrounding muscles of the knee will help support your knees and take some of the stress off of the joint. Please follow the instructions by your physical therapist. Most of the strengthening can come from general exercises such as biking (stationary is fine), swimming, low impact aerobics, water aerobics, or walking. I recommend varying these to assure different muscle use and decreasing repetitive forces on your knees. You may be given specific strengthening exercises such as leg presses, hamstring curles, wall squats or regular squats. In general, if it is hurting to do an exercise, back off, or stop doing it. Shoe wear is very important as the forces that are transmitted from your foot to your knee when walking can be dissipated with good tennis shoes or an insert in your shoes (gel soles, over the counter shoe inserts - Spenco inserts seem to last the longest and can be found at shoe and sporting good stores). Glucosamine sulfate/chondroitin sulfate has been shown to be safe and effective for knee arthritis. This is an over the counter medication/supplement and usually needs to be taken for 1-2 months before results are seen. If you do not see any results after this time, consider stopping it. The dose is usually found on the bottle, and is 1500mg to start (first 1-2 months) then you can back down to 1000 mg (current recommendations are 1500mg per day, all at once). Some people can have stomach problems with this and if you do, you may stop taking it. If you are ALLERGIC TO SHELLFISH, please do not take. Follow the instructions on the bottle. Injections are commonly used to treat arthritis as well. Steroid or cortisone injections are used to help with the pain and swelling in your knee joint from the arthritis. Relief from steroid injections can last anywhere from a few days to several months, depending on the severity of your arthritis. Synvisc and Hyalgan are also commonly used for treatment of arthritis. These medications help replenish the substances found in your knee joint and ultimately help with the pain associated with arthritis. These injections are given weekly for 3-5 weeks. Braces, canes, orthotics, and walkers can also be used depending on the severity of your arthritis. Weight loss is also an important aspect of management of arthritis to help decrease the forces placed on your knee joint while walking, running, or doing any exercises. If you even just lose a few pounds, that should help. If you are unsure of how to do this or have any questions, please consult with your primary physican. One rule to follow is to eat 5-9 servings of fruits or vegetables a day as recommended by most health professional agencies. You may ice as needed or when you are in pain. For an ice bag, apply for 15-20 minutes at least twice a day, more if needed. Ice in a Ziplog/plastic bag or even a bag of frozen peas/corn will work (and is reusable). For ice massage, fill an empty paper or styrofoam cup nearly full with water, place them in the freezer and let them freeze completely. Tear the top off of the cup leaving the bottom part of the cup intact so you can hold onto it. Rub the ice over the affected area for about [address] to do this is in the shower or the bath (with affected area out of the water) for the contrast of hot water, but it can be done outside of the shower. You can also use Anais dish liquid frozen in a ziploc bag. Use a large bottle, dump it in a gallon ziploc bag, zip that and place it inside another ziploc bag. Place in freezer and let it harden to a Play-rhiannon like consistency. Mold it around the part to be iced and use an alek wrap or towel to keep in place. Refreeze and use when needed. If a medication for the pain, swelling, or inflammation has not been prescribed to you, you can use over the counter medications such as: Aleve (Naproxen sodium), 1-2 pills, up to twice a day, with food, for 5-10 days, then as needed thereafter. OR Ibuprofen (Motrin), 3-4 pills, up to three times a day, with food, for 5-10 days, then as needed thereafter. Do not take these medications if you have been instructed not to in the past or if you are taking another anti-inflammatory (such as Celebrex, Naprosyn, Relafen, Voltaren, Mobic, Anaprox, etc). Do not take if you have a history of bleeding ulcers in your stomach. If this should start to upset your stomach, stop taking it. Should you have any questions, you may want to ask your pharmacist or give our office a call. AND/OR Tylenol (acetaminophen), three 325mg pills, or two 500mg pills, up to four times a day, for 5-10 days, then as needed thereafter. Do not take this if you have liver problems or have been advised to not take Tylenol in the past. Be careful when combining with other pain relievers as several pain relievers have acetaminophen in them. Should you have any questions, you may want to ask your pharmacist or give our office a call. Please keep your physical therapy appointment if one has been made for you and and if needed, schedule a follow up appointment. documented in this encounter [facility] 11-04-2024 History of Presen t illness Narrative Radiology Service Progress Note PATIENT NAME: Lida Moreland DATE OF SERVICE: November 04, 2024 TIME: 10:23 AM PATIENT IDENTITY VERIFICATION COMPLETED USING TWO (2) IDENTIFIERS: Name and Date of confirmed by patient verbally. FALL SCREENING: Has the patient had 2 falls in the last year or 1 fall with injury or currently using an Ambulatory Assistive Device (Walker, Cane, Wheelchair, Crutches, etc.)? No PATIENT GENDER DATA: Assigned female at . status: : No status: NO. PATIENT RELEVANT IMPLANT DATA REVIEWED: Not Applicable PATIENT PRESENTS WITH AN IMPLANTABLE OR ATTACHED SHAKE SAWYER: No RADIOLOGY DEPARTMENT: General X-ray: Exam(s) Completed: Lower Extremity X-Ray(s): Knee, AP / LAT / OBL / [place] Right PERIPHERAL IV DATA: Not applicable SIGNED BY: RT Rebeca(Emmett) November 04, 2024 10:23 AM documented in this encounter [facility] 11-04-2024 Note HNO ID: [id number] Author: ROBBIE CUADRA RT(R) Service: ? Author Type: Technologist Type: Progress Notes Filed: 11/04/2024 10:24 Note Text: Radiology Service Progress Note PATIENT NAME: Lida Moreland DATE OF SERVICE: November 04, 2024 TIME: 10:23 AM PATIENT IDENTITY VERIFICATION COMPLETED USING TWO (2) IDENTIFIERS: Name and Date of confirmed by patient verbally. FALL SCREENING: Has the patient had 2 falls in the last year or 1 fall with injury or currently using an Ambulatory Assistive Device (Walker, Cane, Wheelchair, Crutches, etc.)? No PATIENT GENDER DATA: Assigned female at . status: : No status: NO. PATIENT RELEVANT IMPLANT DATA REVIEWED: Not Applicable PATIENT PRESENTS WITH AN IMPLANTABLE OR ATTACHED SHAKE SAWYER: No RADIOLOGY DEPARTMENT: General X-ray: Exam(s) Completed: Lower Extremity X-Ray(s): Knee, AP / LAT / OBL / [place] Right PERIPHERAL IV DATA: Not applicable SIGNED BY: JACKSON Jose) November 04, 2024 10:23 AM [facility] 02-13-2024 Note Exam Date Time Procedure Performing Provider Status 02/13/24 9:20 AM VL Venous US/Doppler Both Legs(for DVT) Auth (Verified) [facility] 05-16-2024 Evaluation + Plan note Future Scheduled Tests Laboratory* Pathology Tissue Request 12/20/23 * Lipid Profile 08/08/23 * Lipid Profile 10/07/23 [facility] 04-09-2024 Note ORIGINAL EXAMINATION: BONE DENSITOMETRY 11/13/2023 4:27 pm TECHNIQUE: A bone density dual x-ray absorptiometry (DEXA) scan was performed of the axial (e.g. hips, spine) and/or appendicular (e.g. radius) skeleton as appropriate. COMPARISON: 01/21/2021 HISTORY: ORDERING SYSTEM PROVIDED HISTORY: Reason for Exam: Osteoporosis Screening FINDINGS: T Score Left Femoral Neck: -0.9 Left Femoral Neck: 0.753 (g/cm2) T Score Left Hip: 0.2 Left Hip: 0.963 (g/cm2) T Score Lumbar Spine: -1.3 Lumbar Spine: 0.905 (g/cmd2) BMD change from previous hip:-4.3% BMD change from previous spine:-2.1% FRAX: 10 year fracture risk assessment Major osteoporotic fracture: 7.4% Hip fracture: 1% IMPRESSION: Osteopenia by WHO criteria. World Health Organization criteria: (Comparing with young normal sex matched population) - Normal: T-score at or above -1 SD (standard deviation) - Osteopenia: T-score between -1 and -2.5 SD - Osteoporosis: T-score at or below -2.5 SD The NOF recommends that FDA-approved medical therapies be considered in post-menopausal women and men age >/= 50 years with a: * Hip or vertebral fracture, or * T-score of /= 20% for major osteoporotic fractures or * >/= 3% for hip fractures All treatment decisions require clinical judgement and consideration of individual patient factors, including patient preferences, comorbidities, previous drug use, risk factors not captured in the FRAX registered model (e.g., frailty, falls, vitamin D deficiency, increased bone turnover, interval significant decline in bone density) and possible under- or over-estimation of fracture risk by FRAX. Interpreted by: Eliel Fernandez DO Preliminary Report By: Eliel Fernandez DO Electronically signed By Eliel Fernandez DO Dictated Date: 11/13/2023 5:00:30 PM Prelim Date: 11/13/2023 5:01:18 PM Sign Date: 11/13/2023 5:01:18 PM Ordering Provider: [facility]04-20-2023 Evaluation + Plan note Diagnostic Tests Pending * Aldolase 11/23/22 * DNA Antibody (Double-stranded) 11/23/22 * Antinuclear Antibody Screen, Serum 11/23/22 [facility] 11-16-2022 Note ORIGINAL HISTORY: Pneumonia COMPARISON: 09 May 2022 FINDINGS: There are a few mild streaky airspace opacities in the left base. The lungs are otherwise clear. The pulmonary vasculature is unremarkable in appearance. The cardiac silhouette is within normal size. IMPRESSION: Mild left atelectasis, otherwise clear lungs. Interpreted by: Miah Hubbard MD Preliminary Report By: Miah Hubbard MD Electronically signed By Miah Hubbard MD Dictated Date: 06/21/2022 1:23:55 PM Prelim Date: 06/21/2022 1:24:30 PM Sign Date: 06/21/2022 1:24:30 PM Ordering Provider: [facility]11-16-2022 Note ORIGINAL HISTORY: Pneumonia COMPARISON: 09 May 2022 FINDINGS: There are a few mild streaky airspace opacities in the left base. The lungs are otherwise clear. The pulmonary vasculature is unremarkable in appearance. The cardiac silhouette is within normal size. IMPRESSION: Mild left atelectasis, otherwise clear lungs. Interpreted by: Miah Hubbard MD Preliminary Report By: Miah Hubbard MD Electronically signed By Miah Hubbard MD Dictated Date: 06/21/2022 1:23:55 PM Prelim Date: 06/21/2022 1:24:30 PM Sign Date: 06/21/2022 1:24:30 PM Ordering Provider: [facility]10-08-2022 Instructions* Patient Instructions* Denisha Fatima MD - 05/13/2022 11:11 AM EDT Rest elevation ice OTC pain med Limit activities, no heavy duty F/u PCP for further evaluation and care Explained details Recheck if any change Use lzdd-fou-jpcivef knee brace [facility] History of Present illness Narrative* Denisha Fatima MD - 05/13/2022 11:06 AM EDT Lida Moreland is a 67 year old FEMALE who presents with Knee Pain (Right knee pain one week) Right knee pain 2 days ago Initially the pain was quite significant She does not have any pain right now There was no injury and she cannot recall any kind of activity which might have caused the pain At the time of this visit she does not have any pain Walking normally Not a problem at this visit History reviewed. No pertinent past medical history. There is no problem list on file for this patient. Current Outpatient Medications Medication Sig Dispense Refill Lwvqehodxassd-Pbbxvooe-Mhwjdq (MULTIVITAMIN 50 PLUS) tab Dose = 1 tab(s), Oral, Daily, 0 Refill(s) albuterol sulfate 90 mcg/actuation breath activated powder inhaler 2 puff(s), Inhalation, q4h, PRN Shortness of breath or wheezing, use with spacer chamber PHARMACY PLEASE DISPENSE, # 1 EA, 0 Refill(s), [facility]: [id number], 160, cm, 05/09/22 13:30:00 EDT, Height, kg, 05/09/22 13:30:00 EDT, Dosing Weight ALPRAZolam (XANAX) 0.25 mg tablet Take 0.25 mg by mouth three times daily as needed. amLODIPine (NORVASC) 5 mg tablet Take 5 mg by mouth. aspirin, enteric coated (ASPIRIN, ENTERIC COATED) 81 mg EC tablet Take 81 mg by mouth. atorvastatin (LIPITOR) 80 mg tablet azithromycin (ZITHROMAX) 250 mg tablet Take by mouth. benzonatate (TESSALON PERLE) 100 mg capsule TAKE ONE CAPSULE BY MOUTH THREE TIMES A DAY NEEDED FOR COUGH FOR SEVEN DAYS buPROPion XL (WELLBUTRIN XL) 150 mg 24 hr tablet Take by mouth. calcium carbonate (CALTRATE) 600 mg calcium (1,500 mg) tab Take 600 mg by mouth. clopidogrel (PLAVIX) 75 mg tablet dicyclomine (BENTYL) 20 mg tablet TAKE ONE TABLET BY MOUTH FOUR TIMES A DAY NEEDED FOR ABDOMINALDISCOMFORT FOR 30 DAYS furosemide (LASIX) 20 mg tablet Take 20 mg by mouth. losartan (COZAAR) 100 mg tablet Take 100 mg by mouth. omeprazole (PRILOSEC) 20 mg capsule predniSONE (DELTASONE) 20 mg tablet Take 20 mg by mouth. triamcinolone acetonide (KENALOG) 0.5 % cream APPLY 1 APPLICATION TOPICALLY TWICE DAILY FOR 14 DAYS No current facility-administered medications for this visit. Social History Tobacco Use Smoking status: Every Day Types: Cigarettes Smokeless tobacco: Never Vaping Use Vaping Use: Never used Substance Use Topics Alcohol use: Yes Drug use: Not Currently Alcohol Use: Yes Tobacco Use: Types: Cigarettes History reviewed. No pertinent family history. Review of Systems Musculoskeletal: Positive for joint pain (Right knee pain which is now resolved). All other systems reviewed and are negative. Temp 97.4 Resp 18 Wt 251 lb 12.8 oz (114.2kg) SpO2 97% Physical Exam Vitals reviewed. Constitutional: Appearance: Normal appearance. Cardiovascular: Rate and Rhythm: Normal rate and regular rhythm. Heart sounds: Normal heart sounds. Pulmonary: Effort: Pulmonary effort is normal. Breath sounds: Normal breath sounds. Musculoskeletal: General: No swelling, tenderness or deformity. Normal range of motion. Cervical back: Normal range of motion and neck supple. Comments: Examination of the right knee did not show any effusion or any swelling or abnormality. No tenderness around the knee joint, full range of motion without any pain or restriction. Full weightbearing without any pain or restriction she is not limping No skin tenderness but I noticed visible veins. Overall exam did not show any significant positive finding about the knee Neurological: Mental Status: She is alert. Explained to patient that her exam is quite normal right now, she did not have any pain at the timeof my examination. She might have sprained her knee which is now resolved Should follow-up with her doctor if pain recurs again and get further evaluated. Patient understood ASSESSMENT/PLAN: 1. Acute pain of right knee - ICD9: 719.46, ICD10: M25.561 Rest elevation ice OTC pain med Limit activities, no heavy duty F/u PCP for further evaluation and care Explained details Recheck if any change She should use eynq-ulq-bviagpa knee brace Denisha Fatima MD [facility] Future Appointments Appointment Date:04/04/2022 01:30:00 PM Scheduled Provider:ALICIA FAUSTIN Location:[facility] Appointment Type:PC OV Future Scheduled Tests Radiology* XR Foot Minimum 3 Views Right 03/23/21 [facility] Evaluation + Plan note Future Appointments Appointment Date:11/21/2023 10:30:00 AM Scheduled Provider:ALICIA FAUSTIN Location:[facility] Appointment Type:PC Wellness Primetime Enhanced Future Scheduled Tests Laboratory* Lipid Profile 08/08/23 * Lipid Profile 10/07/23 [facility] Evaluation + Plan note Future Appointments Appointment Date:02/28/2024 11:00:00 AM Scheduled Provider:ALICIA FAUSTIN APRN-ERIK Location:[facility] Appointment Type:PC OV Future Scheduled Tests Laboratory* Pathology Tissue Request 12/20/23 * Lipid Profile 08/08/23 * Lipid Profile 10/07/23 [facility] Evaluation + Plan note Future Appointments Appointment Date:03/12/2024 10:30:00 AM Scheduled Provider:ALICIA FAUSTIN APRN-ERIK Location:[facility] Appointment Type:PC Wellness Primetime Enhanced Future Scheduled Tests Laboratory* Pathology Tissue Request 12/20/23 * Lipid Profile 10/07/23 * Complete Metabolic Panel 03/03/24 [facility] evaluation note* Diagnosis Acute pain of right knee- Primary documented [facility] noteNo assessment information availableWFostoria City [facility] Work Phone: Evlzsation note* Diagnosis Acute pain of right knee- Primary Primary osteoarthritis of right knee Primary localized osteoarthrosis, lower leg [facility]* Diagnosis Acute pain of right knee [facility] Narrative No data available for this section [facility] Hospital Discharge instructions No data available for this section [facility] Progress note No data available for this section [facility] Reason for referral (narrative)No reason for referral information availableWFostoria City Hospital Work Phone: Reason for visit Narrative* Diagnostic Procedure Only (Routine) - Closed Specialty Diagnoses / Procedures Referred By Rosy t Referred To Contact XR IMAGING Diagnoses Acute pain of right knee Primary osteoarthritis of right knee Procedures XR KNEE INJURY 4V AP/LAT/OBLS RIGHT RADIOLOGIC EXAM KNEE COMPLETE 4/MORE VIEWS Fawad Garcia, SCOOP FILLER.ENTERPRISE RESOURCE ANALYST [address] [id number] Phone: tel: fax: XR IMAGING [facility] Referral ID Status Reason Start Date Expiration Date V isits Requested Visits Authorized [id number] Closed Auto-Generate d Referral 11/04/2024 12/04/2025 1 1 [facility] Chief Complaint and Reason for Visit Chief Complaint AVISE Chief Complaint Admit Date PAIN- COPY PCP November 10, 2024 3:11 pm Summary Purpose Family History No Family History Records Found Advance Directives No Advanced Directives Records FoundNo Advanced Directives Records FoundNo Advanced Directives Records FoundNo Advanced Directives Records Found Additional Source Comments Care Team (unrecognized sect ion and content) Care Team Personnel Name: ALICIA FAUSTIN SCOOP FILLER-ENTERPRISE RESOURCE ANALYST Position: P4 Advanced Practice Nurse Med Service: Employed Provider Member Role: Primary Care Physician Address: Address: [address], [place] [address] Care Team Related Persons Name: TRISHA DUBON Name: APRIL MORELAND Name: APRIL MORELAND Care Team Personnel Name: ALICIA FAUSTIN SCOOP FILLER-ENTERPRISE RESOURCE ANALYST Position: P4 Advanced Practice Nurse Med Service: Employed Provider Member Role: Primary Care Physician Address: Address: [address] Care Team Related Persons Name: TRISHA DUBON Name: APRIL MORELAND Name: APRIL MORELAND Care Team Personnel Name: ALICIA FAUSTIN SCOOP FILLER-ENTERPRISE RESOURCE ANALYST Position: P4 Advanced Practice Nurse Member Role: Primary Care Physician Address: Address: [address] Care Team Related Persons Name: TRISHA DUBON Name: APRIL MORELAND Name: APRIL MORELAND Source Comments (unrecognize d section and content) In the event this informatio n is protected by the Federal Confidentiality of Alcohol and Drug Abuse Patient Records regulations: The Federal rules restrict any use of the information to criminally investigate or prosecute any alcohol or drug abuse patient.[facility] the event this information is protected by the Federal Confidentiality of Alcohol and Drug Abuse Patient Records regulations: The Federal rules restrict any use of the information to criminally investigate or prosecute any alcohol or drug abuse patient.[facility] MemorialIn the event this information is protected by the Federal Confidentiality of Alcohol and Drug Abuse Patient Records regulations: The Federal rules restrict any use of the information to criminally investigate or prosecute any alcohol or drug abuse patient.[facility] MemorialIn the event this information is protected by the Federal Confidentiality of Alcohol and Drug Abuse Patient Records regulations: The Federal rules restrict any use of the information to criminally investigate or prosecute any alcohol or drug abuse patient.[facility] Care Teams (unrecognized sec tion and content) Diazo Technician Relationship Specialty Start Date End Date Alicia Faustin [address] [place] [phone] PCP - General Family Medicine 05/13/22 Team Status: Active Member Role Status Dates Alicia Faustin NP, STEAM ROLLER OPERATOR-C Primary Care Provider Active Team Status: Inactive Member Role Status Dates Alicia Faustin NP, STEAM ROLLER OPERATOR-C Primary Care Provider Active Dr. Yasmine Luevano MD Attending Provider, Referring Provider Active Team Status: Inactive Member Role Status Dates Alicia Faustin NP, STEAM ROLLER OPERATOR-C Primary Care Provider, Other P guiliano Active Dr. Yasmine Luevano MD Attending Provider, Referring Provider Active Diazo Technician Relationship Specialty Start Date End Date Alicia Faustin CNP [address] [place] [phone] PCP - General Family Medicine 05/13/22 Diazo Technician Relationship Specialty Start Date End Date Alicia Faustin CNP [address] [place] [phone] PCP - General Family Medicine 05/13/22 Team Status: Inactive Member Role Status Dates Alicia Faustin NP, STEAM ROLLER OPERATOR-C Primary Care Provider Active Start: November 10, 2024 End: November 10, 2024 Dr. Yasmine Luevano MD Attending Provider Active Start: November 10, 2024 End: November 10, 2024 Dr. Yasmine Luevano MD Referring Provider Active Start: November 10, 2024 End: November 10, 2024 Diazo Technician Relationship Specialty Start Date End Date Alicia Faustin CNP [address] [place] [phone] PCP - General Family Medicine 05/13/22 Goals (unrecognized section and content) Goals may be documented in a n alternate section INFORMATION SOURCE (unrecogn ized section and content) DATE CREATED AUTHOR 03/05/2024 [facility] ([place]) DATE CREATED AUTHOR AUTHOR'S ORGANIZ ATION 11/07/2024 [facility] DATE CREATED AUTHOR AUTHOR'S ORGANIZ ATION 11/28/2024 [facility] DATE CREATED AUTHOR AUTHOR'S ORGANIZ ATION 05/21/2025 [facility] Reason for Visit (unrecogniz ed section and content) Reason Comments Right Knee Pain Right knee pain x 5 days Ongoing problem - no injury FOR RECORDS PERTAINING TO PATIENTS WHO ARE OR HAVE BEEN ENROLLED IN A CHEMICAL DEPENDENCY/SUBSTANCEABUSE PROGRAM, SOME INFORMATION MAY BE OMITTED. This clinical summary was aggregated from multiple sources. Caution should be exercised in using it in the provision of clinical care. This summary normalizes information from multiple sources, and as a consequence, information in this document may materially change the coding, format and clinical context of patient data. In addition, data may be omitted in some cases. CLINICAL DECISIONS SHOULD BE BASED ON THE PRIMARY CLINICAL RECORDS. [employer] [facility]. provides no warranty or guarantee of the accuracy or completeness of information in this document.
[2025-05-27 10:35] LABS: Hematocrit 38.4 % (37-47); Hemoglobin 12.9 g/dL (12.0-15.0); Immature Granulocytes Count 0.010 X10^3/uL (0.0-0.0); Mean Corp Hgb Conc 33.6 g/dL (32-36); Mean Corpuscular Volume 88.9 fL (81-99); Mean Platelet Vol. 11.0 fl (6.2-12.0); NRBC Flagged by Analyzer 0 % (0-5); Platelet Count 227 K/mm3 (150-450); RBC Distribution Width CV 13.2 % (11.6-14.6); RBC Distribution Width SD 43.7 fl (35.1-43.9); Red Blood Count 4.32 M/mm3 (4.2-5.4); White Blood Count 5.6 K/mm3 (4.4-11.0)
[2025-05-27 11:07] LABS: AST(SGOT) 23 U/L (<=31); Alanine Aminotransfer ALT/SGPT 18 U/L (<=34); Albumin, Serum 4.1 g/dL (3.4-4.8); Alkaline Phosphatase 126 U/L (35-104); Anion Gap 10 (5-15); BUN 12 mg/dL (4-19); BUN/Creat Ratio 11.3 RATIO (10-20); Calcium,Total 9.3 mg/dL (7.6-11.0); Carbon Dioxide 27.0 mmol/L (21.0-32.0); Chloride 104 mmol/L (98-108); Cholesterol 176 mg/dL (<=200); Globulin 2.5 g/dL (2.2-4.2); Glucose 89 mg/dL (70-99); Low Density Lipoprotein Calc. 63 mg/dL; Potassium 3.9 mmol/L (3.3-5.1); Triglycerides 68 mg/dL; Very Low Density Lipoprotein 14 mg/dL (5-40); cholesterol:hdl ratio screen 1.76
== END | disposition home or self-care (01) ==
LOC: MTLAB 09:11
PROVIDERS: PCP Nurse Practitioner Primary Care; Referring Provider Nurse Practitioner Primary Care; Visit Provider Nurse Practitioner Primary Care
DX: E78.5 Hyperlipidemia, unspecified (principal); M06.4 Inflammatory polyarthropathy; I10 Essential (primary) hypertension; R76.89 Other specified abnormal immunological findings in serum; Z79.899 Other long term (current) drug therapy
CPT/HCPCS: 36415; 80053; 80061; 85025

== ENCOUNTER → 2025-07-29 | Outpatient (CLI) | payer MEDICARE, SELFPAY ==
--- OUTSIDE RECORDS SUMMARY | 2025-07-29 08:09 | XMS RPT_ITS | CCD ---
Author Organization [facility] Care Team Providers Care Superintendent Menagerie Name Role Phone LOGAN GEOPHYSICAL OPERATOR-DIRECTOR REVENUE, ALICIA S Primary Care Physicia n LoganAdrian muñozssica S Primary Care Provider LOGAN GEOPHYSICAL OPERATOR-DIRECTOR REVENUE, ALICIA S Attending Unava ilable LOGAN GEOPHYSICAL OPERATOR-DIRECTOR REVENUE, ALICIA S Primary Care Unava ilable LOGAN GEOPHYSICAL OPERATOR-DIRECTOR REVENUE, ALICIA S Attending Unava ilable LOGAN GEOPHYSICAL OPERATOR-DIRECTOR REVENUE, ALICIA S Primary Care Unava ilable VIVIANA NARVAEZ Attending Unavailable LOGAN GEOPHYSICAL OPERATOR-DIRECTOR REVENUE, ALICIA S Primary Care Unava ilable MAST GEOPHYSICAL OPERATOR-DIRECTOR REVENUE, ROBB Attending Unavailabl e LOGAN GEOPHYSICAL OPERATOR-DIRECTOR REVENUE, ALICIA S Primary Care Unava ilable LOGAN GEOPHYSICAL OPERATOR-DIRECTOR REVENUE, ALICIA S Attending Unava ilable LOGAN GEOPHYSICAL OPERATOR-DIRECTOR REVENUE, ALICIA S Primary Care Unava ilable Noank DIRECTOR REVENUE, Alicia S Primary Care Provider [phone] SELF Referring Unavailable LOGAN, ALICIA S Primary Care Unavailable FAWAD GARCIA Attending Unavailable FAWAD GARCIA Referring Unavailable LOGAN, ALICIA S Primary Care Unavailable Noank CIVIL ENGINEERING PROFESSIONAL-C, Alicia Primary Care Provider Bassem RIVAS, Dr. Underwood Attending Provider Dr. Yasmine Luevano MD Referring Provider LOGAN GEOPHYSICAL OPERATOR-DIRECTOR REVENUE, ALICIA S Primary Care Unava ilable LOGAN GEOPHYSICAL OPERATOR-DIRECTOR REVENUE, ALICIA S Attending Unava ilable LOGAN GEOPHYSICAL OPERATOR-DIRECTOR REVENUE, ALICIA S Primary Care Unava ilable MIGUEL GEOPHYSICAL OPERATOR-DIRECTOR REVENUE, ANITA Attending Unavailab le Yasmine Luevano Referring Unavailable Yasmine Luevano Attending Unavailable Alicia Faustin Primary Care Unavailable Alicia Faustin Primary Care Unavailable Alicia Faustin Referring Unavailable Alicia Faustin Attending Unavailable Alicia Faustin Primary Care Unavailable Yasmine Luevano Consulting Unavailable Alicia Faustin Referring Unavailable Alicia Faustin Attending Unavailable Allergies Allergy Classification Reported Allergen(s) Allergy Type Date of Onset Reaction(s) Facility (10 sources) Lidocaine / Oxytetracycline; Translations: [lidocaine-oxytet racycline] Drug Allergy [facility] (5 sources) Oxytetracycline; Translations: [OXYTETRACYCLINE] Drug Allergy 05-13-[address] [facility] (5 sources) Oxytetracycline-L idocaine; Translations: [OXYTETRACYCLINE- LIDOCAINE] Drug Allergy 05-13-[address] [facility] Medications Current Medications Medication Drug Class(es) Dates [...] # 18 gram(s), 11 Refill(s), [id number], 161.5, cm, 09/27/23 10:26:00 EST, Height, [...] # 90 tab(s), 3 Refill(s), [facility]: [facility], 161, cm, 12/07/21 11:02:00 EDT, Height, kg, [...] 0 Refill(s) Start Date: 03/13/19 Status: Ordered Udrpopbdbjzwq-Pewljick-Kbswb n (MULTIVITAMIN 50 PLUS) tab (4 sources) Start: 03-13-2019 Subxcjffugjpk-Xmvdeeje-Ffwas n (MULTIVITAMIN 50 PLUS) tab Dose = [...] # 1 EA, 0 Refill(s), [facility]: [facility], 160, cm, 05/09/22 13:30:00 EDT, Height, kg, 05/09/22 13:30:00 EDT, Dosing Weight 12/10/2020 Active Start: 12-10-2020 End: 01-09-2021 take 2 puff(s) by inhalation every four hours as needed for wheezing albuterol 90 mcg/inh inhalation powder 2 puff(s), Inhalation, q4h, PRN Shortness of breath or wheezing, use with spacer chamber PHARMACY PLEASE DISPENSE, # 1 EA, 0 Refill(s), [facility]: [facility], 160, cm, 12/10/20 10:47:00 EDT, Height, kg, 12/10/20 10:47:00 EDT, Dosing Weight Start Date: 12/10/20 Stop Date: 01/09/21 Status: Ordered Comment on above: 2 puff(s), Inhalation, q4h, PRN Shortness of breath or wheezing, use with spacer chamber PHARMACY PLEASE DISPENSE, # 1 EA, 0 Refill(s), [facility]: [facility], 160, cm, 05/09/22 13:30:00 EDT, Height, kg, 05/09/22 13:30:00 EDT, Dosing Weight clopidogrel 75 mg oral tablet (2 sources) P2Y12 Platelet Inhibitor Start: 017 End: clopidogrel (PLAVIX) 75 mg tablet 03/21/2017 11/04/2024 [...] mg/ml topical cream (3 sources) Corticosteroid Start: 022 End: 025 triamcinolone acetonide (KENALOG) 0.5 % cream APPLY [...] Chronic Disorders of lipid metabolism (3 sources) Hyperlipidemia; Translations: [Hyperlipidemia, unspecified] Onset: 06-01-2025 09-24-2024 Chronic Esophageal disorders (6 sources) Gastroesophageal [...] Test Name Value Interpretation Reference Range Facility CBC W/Diff, Automatedon 05-07 Absolute Lymph 2.05 X10 3/uL Normal 0.83-4.51 [facility] Comment on above: Performed By: #### L 100.0100, L500.4050, L500.4100 #### [facility] [address] [place], [address] Absolute Neut 2.7 X10 3/uL Normal 2.0-7.7 [facility] Comment on above: Performed By: #### L 100.0100, L500.4050, L500.4100 #### [facility] [address] [place], [address] Basophils/100 WBC (Bld) 0.7 % Normal 0-1 [facility] Comment on above: Performed By: #### L 100.0100, L500.4050, L500.4100 #### [facility] [address] [place], [address] Eosinophils/100 WBC (Bld) 2.9 % Normal 0-5 [facility] Comment on above: Performed By: #### L 100.0100, L500.4050, L500.4100 #### [facility] [address] [place], [address] Erythrocyte distribution width (RBC) [Ratio] 13.2 % Normal 11.6-14.6 [facility] Comment on above: Performed By: #### L 100.0100, L500.4050, L500.4100 #### [facility] [address] [place], [address] Hematocrit (Bld) [Volume fraction] 38.4 % Normal 37-47 [facility] Comment on above: Performed By: #### L 100.0100, L500.4050, L500.4100 #### [facility] [address] [place], [address] Hemoglobin (Bld) [Mass/Vol] 12.9 g/dL Normal 12.0-15.0 [facility] Comment on above: Performed By: #### L 100.0100, L500.4050, L500.4100 #### [facility] [address] [place], [address] IG% 0.200 Normal 0.0-0.9 [facility] Comment on above: Result Comment: IG% - Immature Granulocytes (promyelocytes, myelocytes and metamyelocytes) > 1% indicates that a LEFT SHIFT is Present. Performed By: #### L 100.0100, L500.4050, L500.4100 #### [facility] [address] [place], [address] Lymphocytes/100 WBC (Bld) 36.7 % Normal 19-41 [facility] Comment on above: Performed By: #### L 100.0100, L500.4050, L500.4100 #### [facility] [address] [place], [address] MCH (RBC) [Entitic mass] 29.9 pg Normal 27.0-32.0 [facility] Comment on above: Performed By: #### L 100.0100, L500.4050, L500.4100 #### [facility] [address] [place], [address] MCHC (RBC) [Mass/Vol] 33.6 g/dL Normal 32-36 [facility] Comment on above: Performed By: #### L 100.0100, L500.4050, L500.4100 #### [facility] [address] [place], [address] MCV (RBC) [Entitic vol] 88.9 fL Normal 81-99 [facility] Comment on above: Performed By: #### L 100.0100, L500.4050, L500.4100 #### [facility] [address] [place], [address] Monocytes/100 WBC (Bld) 11.4 % High 0-10 [facility] Comment on above: Performed By: #### L 100.0100, L500.4050, L500.4100 #### [facility] [address] [place], [address] Neutrophils/100 WBC (Bld) 48.1 % Normal 47-70 [facility] Comment on above: Performed By: #### L 100.0100, L500.4050, L500.4100 #### [facility] [address] [place], [address] Nucleated RBC (Bld) [#/Vol] 0 10*3/uL Normal 0-5 [facility] Comment on above: Performed By: #### L 100.0100, L500.4050, L500.4100 #### [facility] [address] [place], [address] Platelet mean volume (Bld) [Entitic vol] 11.0 fL Normal 6.2-12.0 [facility] Comment on above: Performed By: #### L 100.0100, L500.4050, L500.4100 #### [facility] [address] [place], [address] Platelets (Bld) [#/Vol] 227 10*3/uL Normal 150-450 [facility] Comment on above: Performed By: #### L 100.0100, L500.4050, L500.4100 #### [facility] [address] [place], [address] RBC (Bld) [#/Vol] 4.32 10*6/uL Normal 4.2-5.4 [facility] Comment on above: Performed By: #### L 100.0100, L500.4050, L500.4100 #### [facility] [address] [place], [address] RDW SD 43.7 fl Normal 35.1-43.9 [facility] Comment on above: Performed By: #### L 100.0100, L500.4050, L500.4100 #### [facility] [address] [place], [address] WBC (Bld) [#/Vol] 5.6 10*3/uL Normal 4.4-11.0 [facility] Comment on above: Performed By: #### L 100.0100, L500.4050, L500.4100 #### [facility] [address] [place], [address] [facility] 05-27-2025 Albumin [Mass/Vol] 4.1 g/dL Normal 3.4-4.8 [facility] Comment on above: Performed By: #### L 100.0100, L500.4050, L500.4100 #### [facility] [address] [place], [address] Albumin/Globulin [Mass ratio] 1.6 {ratio} Normal 0.9-2.4 [facility] Comment on above: Performed By: #### L 100.0100, L500.4050, L500.4100 #### [facility] [address] [place], [address] ALK PHOS 126 U/L High 35-104 [facility] Comment on above: Performed By: #### L 100.0100, L500.4050, L500.4100 #### [facility] [address] [place], [address] ALT [Catalytic activity/Vol] 18 U/L Normal <=34 [facility] Comment on above: Performed By: #### L 100.0100, L500.4050, L500.4100 #### [facility] [address] [place], [address] AST [Catalytic activity/Vol] 23 U/L Normal <=31 [facility] Comment on above: Performed By: #### L 100.0100, L500.4050, L500.4100 #### [facility] [address] [place], [address] Bilirubin [Mass/Vol] 1.19 mg/dL Normal 0.00-1.30 [facility] Comment on above: Performed By: #### L 100.0100, L500.4050, L500.4100 #### [facility] [address] [place], [address] BUN/CRE 11.3 RATIO Normal 10-20 [facility] Comment on above: Performed By: #### L 100.0100, L500.4050, L500.4100 #### [facility] [address] [place], [address] Calcium [Mass/Vol] 9.3 mg/dL Normal 7.6-11.0 [facility] Comment on above: Performed By: #### L 100.0100, L500.4050, L500.4100 #### [facility] [address] [place], [address] Chloride [Moles/Vol] 104 mmol/L Normal 98-108 [facility] Comment on above: Performed By: #### L 100.0100, L500.4050, L500.4100 #### [facility] [address] [place], [address] CO2 [Moles/Vol] 27.0 mmol/L Normal 21.0-32.0 [facility] Comment on above: Performed By: #### L 100.0100, L500.4050, L500.4100 #### [facility] [address] [place], [address] Creatinine [Mass/Vol] 1.04 mg/dL Normal 0.70-1.20 [facility] Comment on above: Performed By: #### L 100.0100, L500.4050, L500.4100 #### [facility] [address] [place], [address] GAP 10 Normal 5-15 [facility] Comment on above: Performed By: #### L 100.0100, L500.4050, L500.4100 #### [facility] [address] [place], [address] GFR/1.73 sq M.predicted among non-blacks MDRD (S/P/Bld) [Vol rate/Area] 58 mL/min/{1.73_m2} Low >60 [facility] Comment on above: Result Comment: mL/m in/1.73m2 CKD-EPI Creatinine Equation (2020) Performed By: #### L 100.0100, L500.4050, L500.4100 #### [facility] [address] [place], [address] Globulin (S) [Mass/Vol] 2.5 g/dL Normal 2.2-4.2 [facility] Comment on above: Performed By: #### L 100.0100, L500.4050, L500.4100 #### [facility] [address] [place], [address] Glucose [Mass/Vol] 89 mg/dL Normal 70-99 [facility] Comment on above: Performed By: #### L 100.0100, L500.4050, L500.4100 #### [facility] [address] [place], [address] Potassium [Moles/Vol] 3.9 mmol/L Normal 3.3-5.1 [facility] Comment on above: Performed By: #### L 100.0100, L500.4050, L500.4100 #### [facility] [address] [place], [address] Sodium [Moles/Vol] 141 mmol/L Normal 133-145 [facility] Comment on above: Performed By: #### L 100.0100, L500.4050, L500.4100 #### [facility] [address] [place], [address] T PROT 6.6 g/dL Normal 5.9-8.4 [facility] Comment on above: Performed By: #### L 100.0100, L500.4050, L500.4100 #### [facility] [address] [place], [address] Urea nitrogen [Mass/Vol] 12 mg/dL Normal 4-19 [facility] Comment on above: Performed By: #### L 100.0100, L500.4050, L500.4100 #### [facility] [address] [place], [address] Lipid Profileon 05-27-2025 CHOL:HDL 1.76 Normal [facility] Comment on above: Performed By: #### L 100.0100, L500.4050, L500.4100 #### [facility] [address] [place], [address] Cholesterol [Mass/Vol] 176 mg/dL Normal <=200 [facility] Comment on above: Result Comment: Chol esterol level, Desirable <200 mg/dL Borderline high cholesterol 200-239 mg/dL High cholesterol >=240 mg/dL Recommendations of the NCEP Adult Treatment Panel for the following risk-cutoff thresholds for the [place] population. Performed By: #### L 100.0100, L500.4050, L500.4100 #### [facility] [address] [place], [address] Cholesterol in HDL [Mass/Vol] 100 mg/dL Normal [facility] Comment on above: Result Comment: Georgie onal Cholesterol Education Program (NCEP) guidelines: <40 mg/dL: Low HDL-cholesterol (major risk factor for CHD) >= 60 mg/dL: High HDL-cholesterol (negative risk factor for CHD) HDL-cholesterol is affected by a number of factors, e.g. smoking, exercise, hormones, sex and age. Performed By: #### L 100.0100, L500.4050, L500.4100 #### [facility] [address] [place], [address] Cholesterol in LDL [Mass/Vol] 63 mg/dL Normal [facility] Comment on above: Result Comment: Bord ptimhh=986-768 mg/dL Higher Gual=396 mg/dL or greater Carreon Equation 2020 for LDL-C Performed By: #### L 100.0100, L500.4050, L500.4100 #### [facility] [address] [place], [address] Cholesterol in VLDL [Mass/Vol] 14 mg/dL Normal 5-40 [facility] Comment on above: Performed By: #### L 100.0100, L500.4050, L500.4100 #### [facility] [address] [place], [address] Triglyceride [Mass/Vol] 68 mg/dL Normal [facility] Comment on above: Result Comment: The drugs N-Acetylcysteine and Metamizole may falsely depress this assay. Normal range: <150 mg/dL Borderline High: 150-199 mg/dL High: 200-499 mg/dL Very High: >500 mg/dL Performed By: #### L 100.0100, L500.4050, L500.4100 #### [facility] [address] [place], [address] CVFLURVon 05-15-2025 FLU A PCR Negative Normal Negative [facility] Comment on above: Order Comment: STAT Performed By: #### C VFLURV #### [place] [address] FLU B PCR Negative Normal Negative [facility] Comment on above: Order Comment: STAT Performed By: #### C VFLURV #### [place] [address] RSV PCR Negative Normal Negative [facility] Comment on above: Order Comment: STAT Performed By: #### C VFLURV #### [place] [address] SARS-CoV-2 (COVID-19) RNA JOSE MANUEL+probe Ql (Unsp spec) Negative Normal Negative [facility] Comment on above: Order Comment: STAT Result [...] results. Performed By: #### C VFLURV #### [place] [address] LABORATORYOrdered By: Rose Marie Cardona on 05-15-2025 [...] MA MAMMOGRAM SCREENING BILATERAL W/DONAVAN ORIGINAL FROM: [place] [address] PROCEDURE FOR: LIDA MORELAND [address] [place] [address] Home: PID#: [id number] Exam#: [id number] : 1955 Age: 70 TO: ALICIA FAUSTIN APRN [place] [address] Fax: NO FAX EXAMINATION: SCREENING DIGITAL BILATERAL [...] screening with annual mammograms is recommended. Geneva Matute risk calculations, generated with the history provided, [...] addition to annual mammographic screening per the [place] [employer]. BIRADS: BI-RADS: 2: Benign RECALL: 1 year screening RECALL TYPE: mammo LETTER SENT: Normal BI-RADS 1 and 2 Interpreted by: Eliel Espinoza MD Preliminary Report By: Eliel Espinoza MD Electronically signed By Eliel Espinoza MD Dictated Date: 04/29/2025 7:38:49 PM Prelim Date: 04/29/2025 7:39:59 PM Sign Date: 04/29/2025 7:39:59 PM Ordering Provider: ALICIA FAUSTIN RP Framing Manager: DELMIS MACK RT(R)(M)(CT) letter sent: Normal BI-RADS 1 and 2 Mammogram BI-RADS: 2 Benign Normal [facility] Lipid Profileon 11-19-2024 CHOL:HDL 2.32 Normal [facility] Comment on above: Performed By: #### L 500.4100 #### [facility] [address] [place], [place], [id number] Cholesterol [Mass/Vol] 220 mg/dL High <=200 [facility] Comment on above: Result Comment: Chol esterol level, Desirable <200 mg/dL Borderline high cholesterol 200-239 mg/dL High cholesterol >=240 mg/dL Recommendations of the NCEP Adult Treatment Panel for the following risk-cutoff thresholds for the [place] population. Performed By: #### L 500.4100 #### [facility] [address] [place], [address] Cholesterol in HDL [Mass/Vol] 95 mg/dL Normal [facility] Comment on above: Result Comment: Georgie onal Cholesterol Education Program (NCEP) guidelines: <40 mg/dL: Low HDL-cholesterol (major risk factor for CHD) >= 60 mg/dL: High HDL-cholesterol (negative risk factor for CHD) HDL-cholesterol is affected by a number of factors, e.g. smoking, exercise, hormones, sex and age. Performed By: #### L 500.4100 #### [facility] [address] [place], [address] Cholesterol in LDL [Mass/Vol] 109 mg/dL Normal [facility] Comment on above: Result Comment: Bord tmcsxx=716-856 mg/dL Higher Lucn=708 mg/dL or greater Performed By: #### L 500.4100 #### [facility] [address] [place], [address] Cholesterol in VLDL [Mass/Vol] 16 mg/dL Normal 5-40 [facility] Comment on above: Performed By: #### L 500.4100 #### [facility] [address] [place], [address] Triglyceride [Mass/Vol] 79 mg/dL Normal [facility] Comment on above: Result Comment: The drugs N-Acetylcysteine and Metamizole may falsely depress this assay. Normal range: <150 mg/dL Borderline High: 150-199 mg/dL High: 200-499 mg/dL Very High: >500 mg/dL Performed By: #### L 500.4100 #### [facility] [address] [place], [address] Absolute neutrophil countOrd ered By: Yasmine Luevano on 11-10-2024 Neutrophils (Bld) [#/Vol] 2.7 10*3/uL 2.0-7.7 [facility] Anion gap in Serum or Plasma Ordered By: Yasmine Luevano on 11-10-2024 Anion gap [Moles/Vol] 11 mmol/L 5-15 [facility] BUN/creatinine ratioOrdered By: Yasmine Luevano on 11-10-2024 Urea nitrogen/Creatinine [Mass ratio] 13.5 mg/mg 10-20 [facility] Basophil percentageOrdered B y: Yasmine Luevano on 11-10-2024 Basophils/100 WBC (Bld) 0.9 % 0-1 [facility] Bilirubin, totalOrdered By: Yasmine Luevano on 11-10-2024 Bilirubin [Mass/Vol] 0.87 mg/dL 0.00-1.30 [facility] CBC W/Diff, Automatedon Absolute Lymph 2.20 X10 3/uL Normal 0.83-4.51 [facility] Comment on above: Performed By: #### L 500.4050, L100.0100 #### [facility] [address] [place], [address] Absolute Neut 2.7 X10 3/uL Normal 2.0-7.7 [facility] Comment on above: Performed By: #### L 500.4050, L100.0100 #### [facility] [address] [place], [address] Basophils/100 WBC (Bld) 0.9 % Normal 0-1 [facility] Comment on above: Performed By: #### L 500.4050, L100.0100 #### [facility] [address] [place], [address] Eosinophils/100 WBC (Bld) 1.7 % Normal 0-5 [facility] Comment on above: Performed By: #### L 500.4050, L100.0100 #### [facility] [address] [place], [address] Erythrocyte distribution width (RBC) [Ratio] 13.7 % Normal 11.6-14.6 [facility] Comment on above: Performed By: #### L 500.4050, L100.0100 #### [facility] [address] [place], [address] Hematocrit (Bld) [Volume fraction] 39.7 % Normal 37-47 [facility] Comment on above: Performed By: #### L 500.4050, L100.0100 #### [facility] [address] [place], [address] Hemoglobin (Bld) [Mass/Vol] 13.4 g/dL Normal 12.0-15.0 [facility] Comment on above: Performed By: #### L 500.4050, L100.0100 #### [facility] [address] [place], [address] IG% 0.300 Normal 0.0-0.9 [facility] Comment on above: Result Comment: IG% - Immature Granulocytes (promyelocytes, myelocytes and metamyelocytes) > 1% indicates that a LEFT SHIFT is Present. Performed By: #### L 500.4050, L100.0100 #### [facility] [address] [place], [address] Lymphocytes/100 WBC (Bld) 38.0 % Normal 19-41 [facility] Comment on above: Performed By: #### L 500.4050, L100.0100 #### [facility] [address] [place], [address] MCH (RBC) [Entitic mass] 30.0 pg Normal 27.0-32.0 [facility] Comment on above: Performed By: #### L 500.4050, L100.0100 #### [facility] [address] [place], [address] MCHC (RBC) [Mass/Vol] 33.8 g/dL Normal 32-36 [facility] Comment on above: Performed By: #### L 500.4050, L100.0100 #### [facility] [address] [place], [address] MCV (RBC) [Entitic vol] 89.0 fL Normal 81-99 [facility] Comment on above: Performed By: #### L 500.4050, L100.0100 #### [facility] [address] [place], [address] Monocytes/100 WBC (Bld) 12.1 % High 0-10 [facility] Comment on above: Performed By: #### L 500.4050, L100.0100 #### [facility] [address] [place], [address] Neutrophils/100 WBC (Bld) 47.0 % Normal 47-70 [facility] Comment on above: Performed By: #### L 500.4050, L100.0100 #### [facility] [address] [place], [address] Nucleated RBC (Bld) [#/Vol] 0 10*3/uL Normal 0-5 [facility] Comment on above: Performed By: #### L 500.4050, L100.0100 #### [facility] [address] [place], [address] Platelet mean volume (Bld) [Entitic vol] 11.3 fL Normal 6.2-12.0 [facility] Comment on above: Performed By: #### L 500.4050, L100.0100 #### [facility] [address] [place], [address] Platelets (Bld) [#/Vol] 229 10*3/uL Normal 150-450 [facility] Comment on above: Performed By: #### L 500.4050, L100.0100 #### [facility] [address] [place], [address] RBC (Bld) [#/Vol] 4.46 10*6/uL Normal 4.2-5.4 [facility] Comment on above: Performed By: #### L 500.4050, L100.0100 #### [facility] [address] [place], [address] RDW SD 44.7 fl High 35.1-43.9 [facility] Comment on above: Performed By: #### L 500.4050, L100.0100 #### [facility] [address] [place], [address] WBC (Bld) [#/Vol] 5.8 10*3/uL Normal 4.4-11.0 [facility] Comment on above: Performed By: #### L 500.4050, L100.0100 #### [facility] [address] [place], [address] Carbon dioxide, total [Moles /volume] in Central venous bloodOrdered By: Yasmine Luevano on 11-10-2024 CO2 [Moles/Vol] 25.1 mmol/L 21.0-32.0 [facility] Chloride assayOrdered By: Daniel Luevano on 11-10-2024 Chloride [Moles/Vol] 105 mmol/L 98-108 [facility] Comprehensive Metabolic Prof ilon 11-10-2024 Albumin [Mass/Vol] 3.8 g/dL Normal 3.4-4.8 [facility] Comment on above: Performed By: #### L 500.4050, L100.0100 #### [facility] [address] [place], [address] Albumin/Globulin [Mass ratio] 1.6 {ratio} Normal 0.9-2.4 [facility] Comment on above: Performed By: #### L 500.4050, L100.0100 #### [facility] [address] [place], [address] ALK PHOS 122 U/L High 35-104 [facility] Comment on above: Performed By: #### L 500.4050, L100.0100 #### [facility] [address] [place], [address] ALT [Catalytic activity/Vol] 21 U/L Normal <=34 [facility] Comment on above: Performed By: #### L 500.4050, L100.0100 #### [facility] [address] [place], [address] AST [Catalytic activity/Vol] 24 U/L Normal <=31 [facility] Comment on above: Performed By: #### L 500.4050, L100.0100 #### [facility] [address] [place], [address] Bilirubin [Mass/Vol] 0.87 mg/dL Normal 0.00-1.30 [facility] Comment on above: Performed By: #### L 500.4050, L100.0100 #### [facility] [address] [place], [address] BUN/CRE 13.5 RATIO Normal 10-20 [facility] Comment on above: Performed By: #### L 500.4050, L100.0100 #### [facility] [address] [place], [address] Calcium [Mass/Vol] 9.0 mg/dL Normal 7.6-11.0 [facility] Comment on above: Performed By: #### L 500.4050, L100.0100 #### [facility] [address] [place], [address] Chloride [Moles/Vol] 105 mmol/L Normal 98-108 [facility] Comment on above: Performed By: #### L 500.4050, L100.0100 #### [facility] [address] [place], [address] CO2 [Moles/Vol] 25.1 mmol/L Normal 21.0-32.0 [facility] Comment on above: Performed By: #### L 500.4050, L100.0100 #### [facility] [address] [place], [address] Creatinine [Mass/Vol] 1.14 mg/dL Normal 0.70-1.20 [facility] Comment on above: Performed By: #### L 500.4050, L100.0100 #### [facility] [address] [place], [address] GAP 11 Normal 5-15 [facility] Comment on above: Performed By: #### L 500.4050, L100.0100 #### [facility] [address] [place], [address] GFR/1.73 sq M.predicted among non-blacks MDRD (S/P/Bld) [Vol rate/Area] 52 mL/min/{1.73_m2} Low >60 [facility] Comment on above: Result Comment: mL/m in/1.73m2 CKD-EPI Creatinine Equation (2020) Performed By: #### L 500.4050, L100.0100 #### [facility] [address] [place], [address] Globulin (S) [Mass/Vol] 2.4 g/dL Normal 2.2-4.2 [facility] Comment on above: Performed By: #### L 500.4050, L100.0100 #### [facility] [address] [place], [address] Glucose [Mass/Vol] 79 mg/dL Normal 70-99 [facility] Comment on above: Performed By: #### L 500.4050, L100.0100 #### [facility] [address] [place], [address] Potassium [Moles/Vol] 3.9 mmol/L Normal 3.3-5.1 [facility] Comment on above: Performed By: #### L 500.4050, L100.0100 #### [facility] [address] [place], [address] Sodium [Moles/Vol] 141 mmol/L Normal 133-145 [facility] Comment on above: Performed By: #### L 500.4050, L100.0100 #### [facility] [address] [place], [address] T PROT 6.2 g/dL Normal 5.9-8.4 [facility] Comment on above: Performed By: #### L 500.4050, L100.0100 #### [facility] [address] [place], [address] Urea nitrogen [Mass/Vol] 15 mg/dL Normal 4-19 [facility] Comment on above: Performed By: #### L 500.4050, L100.0100 #### [facility] [address] [place], [address] Eosinophil percentageOrdered By: Yasmine Luevano on 11-10-2024 Eosinophils/100 WBC (Bld) 1.7 % 0-5 [facility] Erythrocyte distribution wid th (RBC) [Ratio]Ordered By: Yasmine Luevano on 11-10-2024 Erythrocyte distribution width (RBC) [Entitic vol] 44.7 fL High 35.1-43.9 [facility] Erythrocyte distribution wid th ratioOrdered By: Yasmine Luevano on 11-10-2024 Erythrocyte distribution width (RBC) [Ratio] 13.7 % 11.6-14.6 [facility] GFR/1.73 sq M.predicted syl g non-blacks MDRD (S/P/Bld) [Vol rate/Area]Ordered By: Yasmine Luevano on 11-10-2024 Estimated GFR (MDRD) Non-Af Amer 52 Low >60 [facility] Comment on above: mL/min/1.73m2 CKD-EP I Creatinine Equation (2020) Hematocrit Auto (Bld) [Volum e fraction]Ordered By: Yasmine Luevano on 11-10-2024 Hematocrit (Bld) [Volume fraction] 39.7 % 37-47 [facility] Hemoglobin measurementOrdere d By: Yasmine Luevano on 11-10-2024 Hemoglobin (Bld) [Mass/Vol] 13.4 g/dL 12.0-15.0 [facility] Immature granulocytes/100 WB C Auto (Bld)Ordered By: Yasmine Luevano on 11-10-2024 Immature granulocytes/100 WBC (Bld) 0.300 % 0.0-0.9 [facility] Comment on above: IG% - Immature Granu locytes (promyelocytes, myelocytes and metamyelocytes) > 1% indicates that a LEFT SHIFT is Present. Laboratory - Chemistry and C hemistry - challengeOrdered By: Yasmine Luevano on 11-10-2024 AST [Catalytic activity/Vol] 24 U/L <32 [facility] Lymphocytes Auto (Unsp spec) [#/Vol]Ordered By: Yasmine Luevano on 11-10-2024 Lymphocytes (Bld) [#/Vol] 2.20 10*3/uL 0.83-4.51 [facility] Lymphocytes/100 WBC Auto (Un sp spec)Ordered By: Yasmine Luevano on 11-10-2024 Lymphocytes/100 WBC (Bld) 38.0 % 19-41 [facility] MCV (mean corpuscular volume ) determinationOrdered By: Yasmine Luevano on 11-10-2024 MCV (RBC) [Entitic vol] 89.0 fL 81-99 [facility] Mean corpuscular hemoglobin (MCH) determinationOrdered By: Yasmine Luevano on 11-10-2024 MCH (RBC) [Entitic mass] 30.0 pg 27.0-32.0 [facility] Mean corpuscular hemoglobin concentration (MCHC) determinationOrdered By: Yasmine Luevano on 11-10-2024 MCHC (RBC) [Mass/Vol] 33.8 g/dL 32-36 [facility] Mean platelet volume determi nationOrdered By: Yasmine Luevano on 11-10-2024 Platelet mean volume (Bld) [Entitic vol] 11.3 fL 6.2-12.0 [facility] Monocyte percentageOrdered B y: Yasmine Luevano on 11-10-2024 Monocytes/100 WBC (Bld) 12.1 % High 0-10 [facility] Neutrophil percentageOrdered By: Yasmine Luevano on 11-10-2024 Neutrophils/100 WBC (Bld) 47.0 % 47-70 [facility] Nucleated red blood cell per centageOrdered By: Yasmine Luevano on 11-10-2024 Nucleated RBC/100 WBC (Bld) [Ratio] 0 % 0-5 [facility] Platelet countOrdered By: Daniel Luevano on 11-10-2024 Platelets (Bld) [#/Vol] 229 10*3/uL 150-450 [facility] Potassium (Unsp spec) [Mass/ Vol]Ordered By: Yasmine Luevano on 11-10-2024 Potassium [Moles/Vol] 3.9 mmol/L 3.3-5.1 [facility] RBC Auto (Bld) [#/Vol]Ordere d By: Yasmine Luevano on 11-10-2024 RBC (Bld) [#/Vol] 4.46 10*6/uL 4.2-5.4 [facility] Serum creatinine measurement (mass/volume)Ordered By: Yasmine Luevano on 11-10-2024 Creatinine [Mass/Vol] 1.14 mg/dL 0.70-1.20 [facility] Serum globulin measurementOr dered By: Yasmine Luevano on 11-10-2024 Globulin (S) [Mass/Vol] 2.4 g/dL 2.2-4.2 [facility] Serum glucose measurement (m ass/volume)Ordered By: Yasmine Luevano on 11-10-2024 Glucose [Mass/Vol] 79 mg/dL 70-99 [facility] Serum or plasma alanine suero otransferase (ALT) measurementOrdered By: Yasmine Luevano on 11-10-2024 ALT [Catalytic activity/Vol] 21 U/L <35 [facility] Serum or plasma albumin aury urement (mass/volume)Ordered By: Yasmine Luevano on 11-10-2024 Albumin [Mass/Vol] 3.8 g/dL 3.4-4.8 [facility] Serum or plasma albumin/glob ulin mass ratioOrdered By: Yasmine Luevano on 11-10-2024 Albumin/Globulin [Mass ratio] 1.6 {ratio} 0.9-2.4 [facility] Serum or plasma alkaline ronda sphatase measurementOrdered By: Yasmine Luevano on 11-10-2024 ALP [Catalytic activity/Vol] 122 U/L High 35-104 [facility] Serum or plasma calcium aury urement (mass/volume)Ordered By: Yasmine Luevano on 11-10-2024 Calcium [Mass/Vol] 9.0 mg/dL 7.6-11.0 [facility] Serum or plasma urea nitroge n measurement (mass/volume)Ordered By: Yasmine Luevano on 11-10-2024 Urea nitrogen [Mass/Vol] 15 mg/dL 4-19 [facility] Sodium levelOrdered By: Josselyn Luevano on 11-10-2024 Sodium [Moles/Vol] 141 mmol/L 133-145 [facility] Total proteinOrdered By: Ariel Luevano on 11-10-2024 Protein [Mass/Vol] 6.2 g/dL 5.9-8.4 [facility] White blood cell (WBC) count Ordered By: Yasmine Luevano on 11-10-2024 WBC (Bld) [#/Vol] 5.8 10*3/uL 4.4-11.0 [facility] CNOVon 11-04-2024 CNOV Office Visit ([facility] ) LIDA MORELAND ([id number]) 1955 F Date Time Provider Department 11/04/24 8:40 AM FAWAD GARCIA [facility] During your visit today, we recorded the following information about you: Temperature Pulse Respiration Blood pressure 97.6 degrees 60/minute 18/minute 147/91 Weight 113.4 kg Fawad Garcia, PABLO.DIRECTOR REVENUE 11/04/2024 9:48 AM Signed Knee arthritis You [...] medications if you (more content not included)... [facility] XR KNEE 4V AP/LAT/OBLS RTon [...] effusion. IMPRESSION: Degenerative change. No acute abnormalities. Material Combiner: CURRY Transcribe Date/Time: Nov 05 2024 5:25P Dictated by : DUSTIN WILLETT MD This examination was interpreted and the report reviewed and electronically signed by: DUSTIN WILLETT MD on Nov 05 2024 5:26PM EST [id number] [facility] LABORATORYOrdered By: Rose Marie Cardona on 03-03-2024 [...] 03-03-2024 Cholesterol [Mass/Vol] 176 mg/dL Normal 0-200 [facility] ([place]) Comment on above: Result Comment: Chol esterol Reference Interval: Less than 200 Desirable 200-239 Borderline high risk 240 and above High risk Performed By: #### L IPID #### [address] [address] Cholesterol in HDL [Mass/Vol] 90 mg/dL High 40-60 [facility] ([place]) Comment on above: Performed By: #### L IPID #### [address] [address] Cholesterol in LDL [Mass/Vol] 71 mg/dL Normal 0-130 [facility] ([place]) Comment on above: Performed By: #### L IPID #### [address] [address] Triglyceride [Mass/Vol] 76 mg/dL Normal 0-150 [facility] ([place]) Comment on above: Result Comment: Trig lyceride Reference Interval: Less than 150 Normal 150-199 Borderline high risk 200-499 High risk 500 or higher Very high risk Performed By: #### L IPID #### [address] [address] LABORATORYOrdered By: SYSTEM SYSTEM on 01-23-2024 Natriuretic peptide.B prohormone N-Terminal [Mass/Vol] 242 pg/mL High 0 - 125 pg/mL AO ADM SS Comment on above: Interpretive Data: N T-proBNP results of less than 300 pg/mL effectively rules out acute congestive heart failure with 99% negative predictive value. PBNPon 01-23-2024 Natriuretic peptide B (Bld) [Mass/Vol] 242 pg/mL High 0-125 [facility] ([place]) Comment on above: Result Comment: NT-p roBNP results of less than 300 pg/mL effectively rules out acute congestive heart failure with 99% negative predictive value. Performed By: #### P BNP #### [address] [address] Final Surgical Pathology Rep [facility] 12-24-2023 Final Surgical Pathology Report . Pathology Reports Accession: Collected Date/Time: Received Date/Time: Pathologist: [id number] 12/20/2023 09:25 EDT 12/21/2023 09:25 LORI BARRERA MD Final Surgical Pathology Report DIAGNOSIS: CYST LEFT EAR: - EPIDERMAL INCLUSION CYST WITH CHRONIC INFLAMMATION CLINICAL INFORMATION: CYST ON EAR Procedure: EXCISION OF CYST ON THE POSTERIOR EAR WITH INTERMEDIATE CLOSURE Preoperative diagnosis: CYST Postoperative diagnosis: SAME SPECIMEN: A POSTERIOR EAR CYST GROSS DESCRIPTION: All parts labelled with patient name and [id number] Received in formalin labelled cyst left ear Is a white -florian portion of cystic soft tissue with no grossly identified skin measuring 1.5 x 0.8 x 0.6 cm. Outer surface of the specimen is inked black. TS-1 Serjio Camilo, Pathologists' Drip Molder (ASCP) Dictated by SERJIO CAMILO MICROSCOPIC DESCRIPTION: The microscopic examination is performed, except in the case of Gross Only. Electronically Signed by Pathology Report verified by [facility] LORI KINNEY Sign out Date: 12/24/2023 14:23 Performing Lab: [facility], [address] [place] [address] Pathology Dept Disclaimer If ancillary studies were utilized, the following Laboratory Developed Test (LDT) disclaimer will apply: Under CLIA requirements, [facility] is qualified to perform high complexity testing. For all ancillary stains, positive and negative controls stain appropriately. Performance characteristics of immunohistochemical and chromogenic in-situ hybridization tests have been determined by [facility]. These tests are used for clinical purposes, They should not be regarded as investigational or for research. Normal [facility] ([place]) [place] MAMMOGRAM SCREENING BILAT ERAL W/TOMOon 11-14-2023 MA MAMMOGRAM SCREENING BILATERAL W/DONAVAN ORIGINAL FROM: [address] [address] PROCEDURE FOR: LIDA MORELAND [address] [place] [address] Home: PID#: [id number] Exam#: [id number] : 1955 Age: 68 TO: ALICIA FAUSTIN APRN [address] [address] Fax: NO FAX EXAMINATION: SCREENING DIGITAL BILATERAL [...] screening with annual mammograms is recommended. [place] Matute risk calculations, generated with the history provided, [...] addition to annual mammographic screening per the [place] [employer]. BIRADS: MAMMOGRAM BI-RADS: 2: Benign finding RECALL: 1 year screening RECALL TYPE: mammo LETTER SENT: Normal BI-RADS 1 and 2 Interpreted by: Christine Whitt Preliminary Report By: Christine Whitt Electronically signed By Christine Whitt Dictated Date: 11/14/2023 9:22:14 AM Prelim Date: 11/14/2023 9:25:50 AM Sign Date: 11/14/2023 9:25:50 AM Ordering Provider: ALICIA FAUSTIN Framing Manager: WOO KHAN RT(R)(M)(CT) RECREATIONAL SPECIALIST letter sent: Normal BI-RADS 1 and 2 Mammogram BI-RADS: 2 Benign Normal [facility] ([place]) BD BONE DENSITY DEXA AXIAL S [facility] 11-13-2023 BD BONE DENSITY DEXA [...] 11/13/2023 5:01:18 PM Ordering Provider: ALICIA FAUSTIN [facility] ([place]) Absolute lymphocyte countOrd ered By: Yasmine Luevano on 10-24-2023 Lymphocytes Auto (Unsp spec) [#/Vol] 2.62 10*3/uL 0.83-4.51 [facility] Automated lymphocyte count a s percentage of total leukocytesOrdered By: Yasmine Bassem on 10-24-2023 Lymphocytes/100 WBC Auto (Unsp spec) 44.0 % 19-41 [facility] Basophil percentageOrdered B y: Yasmine Bassem on 10-24-2023 Basophils/100 WBC (Bld) 0.7 % 0-1 [facility] Bilirubin [Mass/Vol] 0.80 mg/dL 0.20-1.00 [facility] Comment on above: For patients on eltr ombopag therapy, use of Dimension [place] TBIL is not recommended. Chloride [Moles/Vol] 106 mmol/L 98-107 [facility] Cholesterol [Mass/Vol] 152 mg/dL <200 [facility] Comment on above: <200 mg/dL Desirable 200-240 mg/dL Borderline >240 mg/dL High Risk Eosinophils/100 WBC (Bld) 1.0 % 0-5 [facility] Glucose [Mass/Vol] 80 mg/dL 74-106 [facility] Hemoglobin (Bld) [Mass/Vol] 13.0 g/dL 12.0-15.0 [facility] Monocytes/100 WBC (Bld) 11.7 % 0-10 [facility] Neutrophils (Bld) [#/Vol] 2.5 10*3/uL 2.0-7.7 [facility] Neutrophils/100 WBC (Bld) 42.3 % 47-70 [facility] Potassium [Moles/Vol] 3.5 mmol/L 3.5-5.1 [facility] Protein [Mass/Vol] 6.5 g/dL 6.4-8.2 [facility] Sodium [Moles/Vol] 140 mmol/L 136-145 [facility] Triglyceride [Mass/Vol] 113 mg/dL <199 [facility] Comment on above: The drugs N-Acetylcy steine and Metamizole may falsely depress this assay.Serum Triglycerides Reference Interval Normal <150 mg/dL Borderline high 150 - 199 mg/dL High 200 - 499 mg/dL Very High > or = 500 mg/dL WBC (Bld) [#/Vol] 6.0 10*3/uL 4.4-11.0 [facility] Determination of erythrocyte mean corpuscular volume (MCV)Ordered By: Yasmine Luevano on 10-24-2023 MCV (RBC) [Entitic vol] 91.0 fL 81-99 [facility] Erythrocyte distribution wid th ratioOrdered By: Yasmine Luevano on 10-24-2023 Erythrocyte distribution width (RBC) [Ratio] 13.6 % 11.6-14.6 [facility] Erythrocyte distribution wid th standard deviationOrdered By: Yasmine Luevano on 10-24-2023 Erythrocyte distribution width (RBC) [Entitic vol] 46.0 fL 35.1-43.9 [facility] Hematocrit Auto (Bld) [Volum e fraction]Ordered By: Yasmine Luevano on 10-24-2023 Hematocrit (Bld) [Volume fraction] 40.3 % 37-47 [facility] Immature granulocytes/100 WB C Auto (Bld)Ordered By: Yasmine Luevano on 10-24-2023 Immature granulocytes/100 WBC (Bld) 0.300 % 0.0-0.9 [facility] Comment on above: IG% - Immature Granu locytes (promyelocytes, myelocytes and metamyelocytes) > 1% indicates that a LEFT SHIFT is Present. Laboratory - Chemistry and C hemistry - challengeOrdered By: Yasmine Luevano on 10-24-2023 Albumin/Globulin [Mass ratio] 1.0 {ratio} 0.9-2.4 [facility] ALP [Catalytic activity/Vol] 127 U/L 45-117 [facility] ALT [Catalytic activity/Vol] 26 U/L 13-56 [facility] Cholesterol in HDL [Mass/Vol] 86 mg/dL >40 [facility] Comment on above: The drugs N-Acetylcy steine and Metamizole may falsely depress this assay. Reference Range HDL <40 mg/dL Low HDL Cholesterol HDL >or= 60 mg/dL High HDL Cholesterol Cholesterol in LDL [Mass/Vol] 43 mg/dL 0-130 [facility] CO2 [Moles/Vol] 28.0 mmol/L 21.0-32.0 [facility] Globulin (S) [Mass/Vol] 3.2 g/dL 2.2-4.2 [facility] Urea nitrogen/Creatinine [Mass ratio] 15.2 mg/mg 10-20 [facility] Laboratory - Hematology and Cell countsOrdered By: Yasmine Luevano on 10-24-2023 MCH (RBC) [Entitic mass] 29.3 pg 27.0-32.0 [facility] MCHC (RBC) [Mass/Vol] 32.3 g/dL 32-36 [facility] Nucleated RBC/100 WBC (Bld) [Ratio] 0 % 0-5 [facility] Platelet mean volume (Bld) [Entitic vol] 11.6 fL 6.2-12.0 [facility] Platelets (Bld) [#/Vol] 224 10*3/uL 150-450 [facility] No Panel InformationOrdered By: Yasmine Luevano on 10-24-2023 Estimated GFR (MDRD) Amer 72 mL/min >60 [facility] Comment on above: GFR Calc Estimated GFR (MDRD) Non-Af Amer 59 mL/min >60 [facility] Comment on above: Non- GFR Calc VLDL Cholesterol 23 mg/dL 5-40 [facility] RBC Auto (Bld) [#/Vol]Ordere d By: Yasmine Luevano on 10-24-2023 RBC (Bld) [#/Vol] 4.43 10*6/uL 4.2-5.4 [facility] Serum or plasma calcium aury urement (mass/volume)Ordered By: Yasmine Luevano on 10-24-2023 Calcium [Mass/Vol] 8.7 mg/dL 8.5-10.1 [facility] Serum or plasma creatinine m easurement (mass/volume)Ordered By: Yasmine Luevano on 10-24-2023 Creatinine [Mass/Vol] 0.99 mg/dL 0.55-1.02 [facility] Comment on above: The validity of the calculated GFR & GFRAA in patients over 70 years has not been determined. Clinical correlation is essential. Serum or plasma urea nitroge n measurement (mass/volume)Ordered By: Yasmine Luevano on 10-24-2023 Urea nitrogen [Mass/Vol] 15 mg/dL 7-18 [facility] Thin prep Papanicolaou smear with manual screeningOrdered By: Yasmine Luevano on 10-24-2023 Thin prep Papanicolaou smear with manual screening 3.3 g/dL 3.2-5.0 [facility] Thin prep Papanicolaou smear with manual screening 20 U/L 15-37 [facility] Thin prep Papanicolaou smear with manual screening 6 5-15 [facility] Absolute lymphocyte countOrd ered By: Dr. Luevano on 01-15-2023 Lymphocytes Auto (Unsp spec) [#/Vol] 2.21 10*3/uL 0.83-4.51 [facility] Basophil percentageOrdered B y: Dr. Luevano on 01-15-2023 Basophils/100 WBC (Bld) 0.8 % 0-1 [facility] Bilirubin [Mass/Vol] 0.80 mg/dL 0.20-1.00 [facility] Comment on above: For patients on eltr ombopag therapy, use of Dimension [place] TBIL is not recommended. Chloride [Moles/Vol] 107 mmol/L 98-107 [facility] [facility] Eosinophils/100 WBC (Bld) 2.8 % 0-5 [facility] Glucose [Mass/Vol] 102 mg/dL 74-106 [facility] Comment on above: Fasting Glucose resu lt from 100 to 125 mg/dL suggests IMPAIRED HOMEOSTASIS per A.D.A. criteria. Neutrophils (Bld) [#/Vol] 3.4 10*3/uL 2.0-7.7 [facility] Neutrophils/100 WBC (Bld) 52.3 % 47-70 [facility] Potassium [Moles/Vol] 3.9 mmol/L 3.5-5.1 [facility] Protein [Mass/Vol] 7.1 g/dL 6.4-8.2 [facility] Sodium [Moles/Vol] 141 mmol/L 136-145 [facility] WBC (Bld) [#/Vol] 6.5 10*3/uL 4.4-11.0 [facility] Bilirubin Test strip Ql (U)O rdered By: Dr. Luevano on 01-15-2023 Bilirubin Ql (U) Negative Negative [facility] Blood erythrocytes count (nu mber/volume)Ordered By: Dr. Luevano on 01-15-2023 RBC (Bld) [#/Vol] 4.40 10*6/uL 4.2-5.4 [facility] Blood hemoglobin measurement (mass/volume)Ordered By: Dr. Luevano on 01-15-2023 Hemoglobin (Bld) [Mass/Vol] 13.0 g/dL 12.0-15.0 [facility] Blood lymphocytes/100 leukoc ytesOrdered By: Dr. Luevano on 01-15-2023 Lymphocytes/100 WBC (Bld) 34.2 % 19-41 [facility] Blood monocytes/100 leukocyt esOrdered By: Dr. Luevano on 01-15-2023 Monocytes/100 WBC (Bld) 9.4 % 0-10 [facility] Blood platelet mean volumeOr dered By: Dr. Luevano on 01-15-2023 Platelet mean volume (Bld) [Entitic vol] 10.6 fL 6.2-12.0 [facility] Determination of erythrocyte mean corpuscular volume (MCV)Ordered By: Dr. Luevano on 01-15-2023 MCV (RBC) [Entitic vol] 92.0 fL 81-99 [facility] Dilute Diogenes's viper venom timeOrdered By: Dr. Luevano on 01-15-2023 dRVVT Coag (PPP) [Time] 40.5 s 0.0-47.0 [facility] Hematocrit Auto (Bld) [Volum e fraction]Ordered By: Dr. Luevano on 01-15-2023 Hematocrit (Bld) [Volume fraction] 40.5 % 37-47 [facility] INR in Blood by Coagulation assayOrdered By: Dr. Luevano on 01-15-2023 INR Coag (Bld) [Relative time] 0.9 {INR} [facility] Ketones Test strip Ql (U)Ord ered By: Dr. Luevano on 01-15-2023 Ketones Ql (U) Negative Negative [facility] Laboratory - Chemistry and C hemistry - challengeOrdered By: Dr. Luevano on 01-15-2023 ALP [Catalytic activity/Vol] 151 U/L 45-117 [facility] ALT [Catalytic activity/Vol] 27 U/L 13-56 [facility] CO2 [Moles/Vol] 29.0 mmol/L 21.0-32.0 [facility] Globulin (S) [Mass/Vol] 3.7 g/dL 2.2-4.2 [facility] Urea nitrogen/Creatinine [Mass ratio] 13.5 mg/mg 10-20 [facility] Laboratory - CoagulationOrde red By: Dr. Luevano on 01-15-2023 aPTT Coag (Bld) [Time] 29.3 s 24.1-36.2 [facility] PT Coag (PPP) [Time] 11.9 s 11.7-14.9 [facility] Laboratory - Hematology and Cell countsOrdered By: Dr. Luevano on 01-15-2023 Erythrocyte distribution width (RBC) [Entitic vol] 47.4 fL 35.1-43.9 [facility] Erythrocyte distribution width (RBC) [Ratio] 13.8 % 11.6-14.6 [facility] Immature granulocytes/100 WBC (Bld) 0.500 % 0.0-0.9 [facility] Comment on above: IG% - Immature Granu locytes (promyelocytes, myelocytes and metamyelocytes) > 1% indicates that a LEFT SHIFT is Present. MCH (RBC) [Entitic mass] 29.5 pg 27.0-32.0 [facility] Nucleated RBC/100 WBC (Bld) [Ratio] 0 % 0-5 [facility] Laboratory - Miscellaneous t estsOrdered By: Dr. Luevano on 01-15-2023 Service comment (Unsp spec) [Interp] Comment . [facility] Comment on above: Results do not indic ate the presence of a LupusAnticoagulant: abnormal high screening results (PTT-LA,dRVVT, mixing studies), may be due to medication (heparin,warfarin, aspirin), Factor inhibitors, anticardiolipinantibodies, or poor specimen integrity.Performed at: [address] [id number] Director: Carlito Bernal MD, Phone: [phone] [facility] Auto (RBC) [Mass/Vol]Or dered By: Dr. Luevano on 01-15-2023 MCHC (RBC) [Mass/Vol] 32.1 g/dL 32-36 [facility] Nitrite Test strip Ql (U)Ord ered By: Dr. Luevano on 01-15-2023 Nitrite Ql (U) Negative Negative [facility] No Panel InformationOrdered By: Dr. Luevano on 01-15-2023 Miscellaneous Test Comment MAILED SPECIMEN [facility] Estimated GFR (MDRD) Amer 63 mL/min >60 [facility] Comment on above: GFR Calc Estimated GFR (MDRD) Non-Af Amer 52 mL/min >60 [facility] Comment on above: Non- GFR Calc Hepatitis B Surface Antigen Non-Reactive Nonreactive [facility] Hepatitis C Antibody Non-Reactive Nonreactive [facility] Comment on above: Non Reactive: < 0.8 Equivocal: >/= 0.8 to < 1.0 Reactive: >/= 1.0The CDC recommends that a reactive/equivocal HCV antibody result be followed up by the HCV Nucleic Acid Amplificationtest (355726) Platelets bldOrdered By: Dr. Luevano on 01-15-2023 Platelets (Bld) [#/Vol] 283 10*3/uL 150-450 [facility] Protein Test strip Ql (U)Ord ered By: Dr. Luevano on 01-15-2023 Protein Ql (U) 15 mg/dl Negative [facility] Serum hepatitis B virus surf alek antibody IgG detectionOrdered By: Dr. Luevano on 01-15-2023 HBV surface IgG Ql (S) Non-Reactive [facility] Comment on above: Non Reactive: Incons istent with immunity less than <10 mIU/mL Reactive: Consistent with immunity greater than or equal to 10 mIU/mL Serum or plasma albumin aury urement (mass/volume)Ordered By: Dr. Luevano on 01-15-2023 Albumin [Mass/Vol] 3.4 g/dL 3.2-5.0 [facility] Serum or plasma albumin/glob ulin mass ratioOrdered By: Dr. Luevano on 01-15-2023 Albumin/Globulin [Mass ratio] 0.9 {ratio} 0.9-2.4 [facility] Serum or plasma calcium aury urement (mass/volume)Ordered By: Dr. Luevano on 01-15-2023 Calcium [Mass/Vol] 9.7 mg/dL 8.5-10.1 [facility] Serum or plasma creatinine m easurement (mass/volume)Ordered By: Dr. Luevano on 01-15-2023 Creatinine [Mass/Vol] 1.11 mg/dL 0.55-1.02 [facility] Comment on above: The validity of the calculated GFR & GFRAA in patients over 70 years has not been determined. Clinical correlation is essential. Serum or plasma urea nitroge n measurement (mass/volume)Ordered By: Dr. Luevano on 01-15-2023 Urea nitrogen [Mass/Vol] 15 mg/dL 7-18 [facility] Thin prep Papanicolaou smear with manual screeningOrdered By: Dr. Luevano on 01-15-2023 Thin prep Papanicolaou smear with manual screening 19 U/L 15-37 [facility] Thin prep Papanicolaou smear with manual screening 5 5-15 [facility] Thin prep Papanicolaou smear with manual screening 37.0 sec 0.0-47.6 [facility] Thin prep Papanicolaou smear with manual screening 1.14 Ratio 0.00-1.34 [facility] Thin prep Papanicolaou smear with manual screening 34.0 sec 0.0-43.5 [facility] Thin prep Papanicolaou smear with manual screening Comment: . [facility] Comment on above: No lupus anticoagula nt was detected. Thrombin time in platelet po or plasmaOrdered By: Dr. Luevano on 01-15-2023 Thrombin time Coag (PPP) [Time] 16.3 sec 0.0-23.0 [facility] Urine blood detectionOrdered By: Dr. Luevano on 01-15-2023 RBC Ql (U) 25 /ul Negative [facility] Urine clarityOrdered By: Dr. Luevano on 01-15-2023 Clarity (U) Sl. Cloudy Clear [facility] Urine color determinationOrd ered By: Dr. Luevano on 01-15-2023 Color (U) Yellow Yellow [facility] Urine creatinine measurement (mass/volume)Ordered By: Dr. Luevano on 01-15-2023 Creatinine (U) [Mass/Vol] 125.00 mg/dL NO RANGE EST. [facility] Urine glucose detectionOrder ed By: Dr. Luevano on 01-15-2023 Glucose Ql (U) Normal mg/dl Normal [facility] Urine leukocyte esterase det ection by dipstickOrdered By: Dr. Luevano on 01-15-2023 Leukocyte esterase Test strip Ql (U) Negative Negative [facility] Urine pHOrdered By: Dr. Jono mckee on 01-15-2023 pH (U) 6.0 [pH] 5.0 - 8.0 [facility] Urine protein measurement (m ass/volume)Ordered By: Dr. Luevano on 01-15-2023 Protein (U) [Mass/Vol] 14.5 mg/dL 0.0-11.8 [facility] Urine protein/creatinine mas s ratioOrdered By: Dr. Luevano on 01-15-2023 Protein/Creatinine (U) [Mass ratio] 116 mg/g CRE 0-200 [facility] Urine specific gravity measu rementOrdered By: Dr. Luevano on 01-15-2023 Specific gravity (U) [Rel density] 1.015 1.002-1.030 [facility] Urobilinogen Auto test strip Ql (U)Ordered By: Dr. Luevano on 01-15-2023 Urobilinogen Ql (U) Normal mg/dl Normal [facility] LABORATORYOrdered By: SYSTEM SYSTEM on 11-23-2022 [...] Date Time Vital Sign Value Performing Clinician Faci lity 11-04-2024 08:45-0400 Body temperature 97.59 [degF] Fawad Garcia APRN.DIRECTOR REVENUE Work Phone: [facility] 11-04-2024 08:45-0400 Body weight 113.4 kg Fawad Garcia APRN.DIRECTOR REVENUE Work Phone: [facility] 11-04-2024 08:45-0400 Diastolic blood pressure 91 mm[Hg] Fawad Garcia APRN.DIRECTOR REVENUE Work Phone: [facility] 11-04-2024 08:45-0400 Heart rate 60 /min Fawad Garcia APRN.DIRECTOR REVENUE Work Phone: [facility] 11-04-2024 08:45-0400 Respiratory rate 18 /min Fawad Garcia APRN.DIRECTOR REVENUE Work Phone: [facility] 11-04-2024 08:45-0400 SaO2% (BldA) [Mass fraction] 100 % Fawad Garcia APRN.DIRECTOR REVENUE Work Phone: [facility] 11-04-2024 08:45-0400 Systolic blood pressure 147 mm[Hg] Fawad Garcia APRN.DIRECTOR REVENUE Work Phone: [facility] 05-13-2022 10:35-0400 Body temperature 97.39 [degF] Denisha Fatima MD Work Phone: [facility] 05-13-2022 10:35-0400 Body weight 114.22 kg Denisha Fatima MD Work Phone: [facility] 05-13-2022 10:35-0400 Respiratory rate 18 /min Denisha Fatima MD Work Phone: [facility] 05-13-2022 10:35-0400 SaO2% (BldA) [Mass fraction] 97 % Denisha Fatima MD Work Phone: [facility] Encounters Encounter Date Encounter Type Care Provider Facility Start: 05-27-2025 End: 05-27-2025 ambulatory Alicia Faustin Facility:[facility] Start: 05-15-2025 End: 05-19-2025 ambulatory ALICIA FAUSTIN GEOPHYSICAL OPERATOR-DIRECTOR REVENUE Facility:[facility] Start: 05-15-2025 End: 05-19-2025 Outreach Lab ANITA RIVERA GEOPHYSICAL OPERATOR-DIRECTOR REVENUE [facility] Start: 04-27-2025 End: 04-27-2025 ambulatory ALICIA Marlon LOGAN GEOPHYSICAL OPERATOR-DIRECTOR REVENUE Facility:[facility] Start: 04-27-2025 End: 04-27-2025 Patient encounter procedure ALICIA Marlon LOGAN GEOPHYSICAL OPERATOR-DIRECTOR REVENUE [facility] Start: 11-19-2024 End: 11-19-2024 ambulatory Alicia Faustin Facility:[facility] Start: 11-10-2024 End: 11-10-2024 ambulatory Alicia Faustin CIVIL ENGINEERING PROFESSIONAL-C Work Phone: [facility] Work Phone: Start: 11-10-2024 End: 11-10-[address] [facility] Start: 11-10-2024 End: 11-10-2024 ambulatory Yasmine Luevano Facility:[facility] Start: 11-06-2024 End: 01-06-2025 Follow-up encounter Denise Mao APRN.DIRECTOR REVENUE [facility] Start: 11-04-2024 End: 11-04-2024 Subsequent hospital visit by physician Xr [facility] Work Phone: [facility] Comment on above: Acute pain of right knee [M25.561] Start: 11-04-2024 End: 11-04-2024 ambulatory SELF Facility:[id number] Start: 11-04-2024 End: 11-04-2024 Office outpatient visit 25 minutes Fawad Garcia APRN.DIRECTOR REVENUE Work Phone: [facility] Comment on above: Acute pain of right knee (Primary Dx); Primary osteoarthritis of right knee Start: 03-03-2024 End: 03-03-2024 ambulatory ALICIA S LOGAN GEOPHYSICAL OPERATOR-DIRECTOR REVENUE Facility:[facility] Start: 03-03-2024 End: 03-03-2024 Patient encounter procedure ALICIA S LOGAN GEOPHYSICAL OPERATOR-DIRECTOR REVENUE [facility] Start: 02-13-2024 End: 02-13-2024 ambulatory ALICIA S LOGAN GEOPHYSICAL OPERATOR-DIRECTOR REVENUE Facility:A Start: 02-13-2024 End: 02-13-2024 Patient encounter procedure ALICIA S LOGAN GEOPHYSICAL OPERATOR-DIRECTOR REVENUE [facility] Start: 01-23-2024 End: 01-27-2024 ambulatory ROBB MAST GEOPHYSICAL OPERATOR-DIRECTOR REVENUE Facility:[facility] Start: 01-23-2024 End: 01-27-2024 Outreach Lab ROBB MAST GEOPHYSICAL OPERATOR-DIRECTOR REVENUE [facility] Start: 12-20-2023 End: 12-24-2023 ambulatory VIVIANA NARVAEZ Facility:A Start: 11-13-2023 End: 11-13-2023 ambulatory ALICIA Marlon LOGAN GEOPHYSICAL OPERATOR-DIRECTOR REVENUE Facility:[facility] Start: 11-13-2023 End: 11-13-2023 Patient encounter procedure ALICIA Mason LOGAN GEOPHYSICAL OPERATOR-DIRECTOR REVENUE [facility] Start: 10-24-2023 End: 10-24-2023 ambulatory [facility] Work Phone: Start: 10-24-2023 End: 10-24-2023 Patient encounter procedure [facility] Work Phone: Start: 01-15-2023 End: 01-15-2023 ambulatory [facility] Work Phone: Start: 01-15-2023 End: 01-15-2023 Patient encounter procedure [facility] Start: 11-23-2022 End: 11-23-2022 Patient encounter procedure PHY WO ID REFERRING [facility] Start: 06-21-2022 End: 06-21-2022 Patient encounter procedure ALICIA Marlon FAUSTIN GEOPHYSICAL OPERATOR-DIRECTOR REVENUE [facility] Start: 05-13-2022 End: 05-13-2022 Office outpatient new 30 minutes Denisha Fatima MD Work Phone: [facility] Comment on above: Acute pain of right knee (Primary Dx) Start: 05-09-2022 End: 05-09-2022 Patient encounter procedure ALICIA Mason LOGAN GEOPHYSICAL OPERATOR-DIRECTOR REVENUE [facility] Start: 03-14-2022 End: 03-14-2022 Patient encounter procedure ALICIA Mason LOGAN GEOPHYSICAL OPERATOR-DIRECTOR REVENUE [facility] Procedures Date Procedure Procedure Detail Performing Clinician Start: 08-06-1992 Ligation of fallopia n tube ALICIA FAUSTIN GEOPHYSICAL OPERATOR-DIRECTOR REVENUE Cyst (disorder) ROBB MAST GEOPHYSICAL OPERATOR-DIRECTOR REVENUE Comment on above: cyst excision left e ar None (qualifier value) VANESA FAUSTIN GEOPHYSICAL OPERATOR-DIRECTOR REVENUE Plan of Treatment Date Care Activity Detail Author Start: 2030 RSV Vaccine (1 - 1-d ose 75+ series) RSV Vaccine (1 - 1-dose 75+ series) [facility] Start: 04-06-2025 Influenza vaccination Influenz a Vaccine (Season Ended) [facility] Start: 08-06-2024 Advance Directive Discussion Advance Directive Discussion [facility] Start: 04-06-2024 Covid-19 Vaccine ( season) Covid-19 Vaccine ( season) [facility] Start: 04-06-2024 Influenza vaccination Influenza Vacc ine (#1) [facility] Start: 04-06-2022 Influenza vaccination INFLUENZA (#1) [facility] Start: 09-16-2021 COVID-19 VACCINE (3 - Booster for Brook series) COVID-19 VACCINE (3 - Booster for Brook series) [facility] Start: 08-06-2021 ADVANCE DIRECTIVE DISCUSSION ADVANCE DIRECTIVE DISCUSSION [facility] Start: 08-06-2021 DEPRESSION ASSESSMENT DEPRESSION ASS ESSMENT [facility] Start: 02-16-2020 B[address] D[address]ITY BONE DENS[address] [facility] Start: 02-16-2020 Screening for osteoporosis Bone Density Screening [facility] Start: 2005 Pneumococcal Vaccine : 50+ (1 of 1 - PCV) Pneumococcal Vaccine: 50+ (1 of 1 - PCV) [facility] Start: 2005 SHINGRIX VACCINE (1 of 2) SHINGRIX VACCINE (1 of 2) [facility] Start: 02-16-2000 COLOGUARD (FIT-DNA) COLOGUARD (FIT-D NA) [facility] Start: 02-16-[address] [facility] Start: 02-16-2000 COLORECTAL CANCER SCREENING COLORECTAL CANCER SCREENING [facility] Start: 02-16-[address] COLONOGRAPHY [facility] Start: 02-16-2000 DIABETES SCREEN DIABETES SCREEN [facility] Start: 02-16-2000 Diabetes Screening Diabetes Screenin g [facility] Start: 02-16-2000 FECAL OCCULT BLOOD FECAL OCCULT BLOO D [facility] Start: 02-16-2000 Lipid panel Lipid Screening [facility] Start: 02-16-[address] SCREEN [facility] Start: 02-16-2000 Screening for malign ant neoplasm of colon [facility] Start: 02-16-[address] [facility] Start: [address] [facility] Start: 1995 Screening for malign ant neoplasm of breast Mammogram Screening [facility] Start: [address] [facility] Start: 1973 Anxiety Screening Anxiety Screening [facility] Start: 1973 Depression Screening Depression Scre ening [facility] Start: 1973 HEPATITIS C SCREENING HEPATITIS C [facility] Start: 1973 Hepatitis C screening Hepatitis C [facility] Start: 1961 PNEUMOCOCCAL: 65+ (1 - PCV) PNEUMOCOCCAL: 65+ (1 - PCV) [facility] End: 12-04-2025 XR Knee - right AP and Lateral and oblique XR KNEE INJURY 4V AP/LAT/OBLS RIGHT Radiology Routine Acute pain of right knee Primary osteoarthritis of right knee 1 Occurrences starting 11/04/2024 until 12/04/2025 [facility] Work Phone: Comment on above: 1 Occurrences starti ng 11/04/2024 until 12/04/2025 XR Knee - right AP a nd Lateral and oblique XR KNEE INJURY 4V AP/LAT/OBLS RIGHT Radiology Routine Acute pain of right knee 11/04/2024 10:[address] [facility] Immunizations Immunization Date Immunization Notes Care Provider Fa tl 07-22-2021 SARS-CoV-2 (COVID-19 ) Ad26 vaccine, recombinant ALICIA FAUSTIN GEOPHYSICAL OPERATOR-DIRECTOR REVENUE [facility] Reji 10-25-2020 SARS-CoV-2 (COVID-19 ) Ad26 vaccine, recombinant ALICIA LOGAN GEOPHYSICAL OPERATOR-DIRECTOR REVENUE [facility] Comment on above: Result Comment: 2021: [id number] 06-24-2013 influenza virus vaccine, unspecified formulation ALICIA LOGAN GEOPHYSICAL OPERATOR-DIRECTOR REVENUE [facility] Payers Date Payer Category Payer Self-pay 2022 Private Health Insurance [id number] 2021 Medicare (Managed Care) PRIMETIM E [id number] 2021 Unknown PRIMETIME PRIMET MAXIMILIANO HMO POS [id number] 2021-Present [phone] [address] [place] [address] O [id number] 2021 Unknown [id number] 1955 Unknown [id number] 1955 Unknown [id number] 1955 Unknown [id number] 1955 Unknown [id number] 1955 Unknown [id number] 27 1955 Unknown [id number] 27 1955 Unknown [id number] 27 Unknown [id number] 62 Unknown [id number] 62 Unknown [id number] 62 Social History Date Type Detail Facility Start: 03-23-2021 End: 05-13-2022 Tobacco smoking status Smokes tobacco daily (finding) [facility] Comment on above: Cutting down on smok ing Start: 1955 Sex Assigned At Female A [facility] History of tobacco use Cigarette Smoker C [facility] Start: 05-13-2022 End: 11-04-2024 Tobacco use and exposure Smokeless tobacco non-user [facility] Start: 05-13-2022 End: 11-04-2024 Alcohol intake Current drinker of alcohol (finding) [facility] Start: 1955 Sex Assigned At Not on file [facility] Start: 05-03-2022 End: 05-13-2022 Exposure to SARS-CoV-2 (event) Not sure [facility] Start: 01-23-2024 End: 03-17-2025 Tobacco smoking status Ex-smoker (finding) [facility] History of tobacco use Current smoker [facility] History of tobacco use Passive smoker [facility] Start: 05-13-2022 End: 11-04-2024 History of [address] function [facility] Start: 05-13-2022 End: 11-04-[address] [facility] Adult Depression Screening Assessment [address] [facility] Start: 11-04-2024 Alcohol Comment occ [facility] Work Phone: Start: 01-29-2019 End: 11-14-2024 Sex Female (finding) [facility] Sexual Orientation [facility] Clinical Notes 05-13-2022 to 03-17-2025 LaboratoryRadiologyZeb Chaidez LPN - 11/04/2024 9:57 AM EDTFawad Garcia APRN.DIRECTOR REVENUE - 11/04/2024 9:56 AM EDTPatient Robbie Vivar RT(R) - 11/04/2024 9:40 AM EDT Note Date & Type Note Facility 03-17-2025 Evaluation + Plan note Future Scheduled TestsComplete Blood Count 03/17/25Lipid Profile 03/17/25Lipid Profile 09/24/24Complete Metabolic Panel 03/17/25MA Mammo Screening Bilateral w/ [place] 09/24/24 [facility] 11-04-2024 Note HNO ID: [id number] Author: ZEB CHAIDEZ LPN Service: ? Author Type: LICENSED NURSE Type: Progress Notes Filed: 11/04/2024 10:44 Note Text: Knee brace fit and applied per order to right knee. Patient educated on use and voices understanding. Patient tolerated well. Zeb Chaidez LPN [facility] 11-04-2024 History of Presen t illness Narrative Knee brace fit and applied per order to right knee. Patient educated on use and voices understanding. Patient tolerated well. Zeb Chaidez LPN [facility] BECKY Moreland is a 69 year old female. Patient presents with: Right Knee Pain: Right knee pain x 5 days Ongoing problem - no injury HPI Right Knee Pain: - Acute onset of right knee pain x4-5 days. - Describes pain as electric shock or stabbing, localized to the medial aspect of the knee. - Pain began while cleaning the basement; no specific injury or trauma reported. - Aggravated by movement; alleviated by rest and elevation. - Wore a brace yesterday to prevent catching sensation. - Pain is severe enough to [...] The patient consented to the use of [employer] software for draft documentation of the visit consistent with [facility] s Notice of Privacy Practices. Differential Diagnoses - Osteoarthritis is more likely for the following reason(s): suggested by H&P - Meniscal tear is less likely for the following reason(s): H&P not suggestive Procedures documented in this encounter [facility] 11-04-2024 Note HNO ID: [id number] Author: FAWAD GARCIA APRN.ERIK Service: ? Author Type: Nurse Practitioner Type: Progress Notes Filed: 11/04/2024 10:44 Note Text: [facility] KARENILLON Lulu Moreland is a 69 year old female. Patient presents with: Right Knee Pain: Right knee pain x 5 days Ongoing problem - no injury HPI Right Knee Pain: - Acute onset of right knee pain x4-5 days. - Describes pain as electric shock or stabbing, localized to the medial aspect of the knee. - Pain began while cleaning the basement; no specific injury or trauma reported. - Aggravated by movement; alleviated by rest and elevation. - Wore a brace yesterday to prevent catching sensation. - Pain is severe enough to [...] The patient consented to the use of [employer] software for draft documentation of the visit consistent with [facility]?s Notice of Privacy Practices. Differential Diagnoses - Osteoarthritis is more likely for the following reason(s): suggested by HANDP - Meniscal tear is less likely for the following reason(s): HANDP not suggestive Procedures [facility] 11-04-2024 Instructions Fawad Garcia, GEOPHYSICAL OPERATOR.DIRECTOR REVENUE - 11/04/2024 9:48 AM EDT Knee arthritis [...] follow up appointment. documented in this encounter [facility] 11-04-2024 History of Presen t illness Narrative [...] PATIENT PRESENTS WITH AN IMPLANTABLE OR ATTACHED SEMICONDUCTOR BONDER: No RADIOLOGY DEPARTMENT: General X-ray: Exam(s) Completed: Lower Extremity X-Ray(s): Knee, AP / LAT / OBL / [address] Right PERIPHERAL IV DATA: Not applicable SIGNED BY: RT Rebeca(R) November 04, 2024 10:23 AM documented in this encounter [facility] 11-04-2024 Note HNO ID: [id number] Author: ROBBIE CUADRA RT(Emmett) Service: ? Author Type: Technologist Type: Progress [...] PATIENT PRESENTS WITH AN IMPLANTABLE OR ATTACHED SEMICONDUCTOR BONDER: No RADIOLOGY DEPARTMENT: General X-ray: Exam(s) Completed: Lower Extremity X-Ray(s): Knee, AP / LAT / OBL / [address] Right PERIPHERAL IV DATA: Not applicable SIGNED BY: RT Rebeca(R) November 04, 2024 10:23 AM [facility] 02-13-2024 Note Exam Date Time Procedure Performing Provider Status 02/13/24 9:20 AM VL Venous US/Doppler Both Legs(for DVT) Auth (Verified) [facility] 05-16-2024 Evaluation + Plan note Future Scheduled Tests Laboratory* Pathology Tissue Request 12/20/23 * Lipid Profile 08/08/23 * Lipid Profile 10/07/23 [facility] 04-09-2024 Note ORIGINAL EXAMINATION: BONE DENSITOMETRY 11/13/2023 [...] Date: 11/13/2023 5:01:18 PM [facility] Plan note Diagnostic Tests Pending * Aldolase 11/23/22 * DNA Antibody (Double-stranded) 11/23/22 * Antinuclear Antibody Screen, Serum 11/23/22 [facility] 11-16-2022 Note ORIGINAL HISTORY: Pneumonia COMPARISON: 09 [...] Sign Date: 06/21/2022 1:24:30 PM Ordering Provider: [facility]3]11-16-2022 Note ORIGINAL HISTORY: Pneumonia COMPARISON: 09 May [...] Sign Date: 06/21/2022 1:24:30 PM Ordering Provider: [facility]10-08-2022 Instructions* Patient Instructions* Denisha Fatima MD - 05/13/2022 11:11 AM EDT Rest elevation ice OTC pain med Limit activities, no heavy duty F/u PCP for further evaluation and care Explained details Recheck if any change Use jewp-heq-quxoawd knee brace [facility] History of Present illness Narrative* Denisha Fatima [...] Current Outpatient Medications Medication Sig Dispense Refill Yamdgotcrfxrf-Eckijxfp-Qdipfl (MULTIVITAMIN 50 PLUS) tab Dose = 1 [...] Recheck if any change She should use xpfp-tvm-zorkeur knee brace Denisha Fatima MD [facility] Future Appointments Appointment Date:04/04/2022 01:30:00 PM Scheduled Provider:ALICIA FAUSTIN Location:[facility] Appointment Type:PC OV Future Scheduled Tests Radiology* XR Foot Minimum 3 Views Right 03/23/21 [facility] Evaluation + Plan note Future Appointments Appointment Date:11/21/2023 10:30:00 AM Scheduled Provider:ALICIA FAUSTIN Location:[facility] Appointment Type:PC Wellness Primetime Enhanced Future Scheduled Tests Laboratory* Lipid Profile 1/3/24 * Lipid Profile 10/07/23 [facility] Evaluation + Plan note Future Appointments Appointment Date:02/28/2024 11:00:00 AM Scheduled Provider:ALICIA FAUSTIN Location:[facility] Appointment Type:PC OV Future Scheduled Tests Laboratory* Pathology Tissue Request 12/20/23 * Lipid Profile 08/08/23 * Lipid Profile 10/07/23 [facility] Evaluation + Plan note Future Appointments Appointment Date:03/12/2024 10:30:00 AM Scheduled Provider:ALICIA FAUSTIN Location:[facility] Appointment Type:PC Wellness Primetime Enhanced Future Scheduled Tests Laboratory* Pathology Tissue Request 12/20/23 * Lipid Profile 10/07/23 * Complete Metabolic Panel 03/03/24 [facility] Evaluation note* Diagnosis Acute pain of right knee- Primary documented in this encounter [facility] noteNo assessment information availableWKettering [facility] Work Phone: Evaluation note* Diagnosis Acute pain of right knee- Primary Primary osteoarthritis of right knee Primary localized osteoarthrosis, lower leg documented in this encounter [facility] note* Diagnosis Acute pain of right knee [facility] Narrative No data available for this section [facility] Hospital Discharge instructions No data available for this section [facility] Progress note No data available for this section [facility] Reason for referral (narrative)No reason for referral information availableWKettering Health [facility] Work Phone: Reason for visit Narrative* Diagnostic Procedure Only (Routine) - Closed Specialty Diagnoses / Procedures Referred By Contac t Referred To Contact XR IMAGING Diagnoses Acute pain of right knee Primary osteoarthritis of right knee Procedures XR KNEE INJURY 4V AP/LAT/OBLS RIGHT RADIOLOGIC EXAM KNEE COMPLETE 4/MORE VIEWS Fawad Garcia, GEOPHYSICAL OPERATOR.DIRECTOR REVENUE [address] [place] [address] Phone: tel: fax: XR IMAGING [facility] Referral ID Status Reason Start Date Expiration Date V isits Requested Visits Authorized [id number] Closed Auto-Generate d Referral 11/04/2024 12/04/[address] [facility] Chief Complaint and Reason for Visit Chief [...] content) Care Team Personnel Name: ALICIA FAUSTIN GEOPHYSICAL OPERATOR-DIRECTOR REVENUE Position: P4 Advanced Practice Nurse Med Service: Employed Provider Member Role: Primary Care Physician Address: Address: [address] [place] [address] Care Team Related Persons Name: TRISHA DUBON Name: APRIL MORELAND Name: APRIL MORELAND Care Team Personnel Name: ALICIA FAUSTIN APRN-DIRECTOR REVENUE Position: P4 Advanced Practice Nurse Med Service: Employed Provider Member Role: Primary Care Physician Address: Address: [address] [place] [address] Care Team Related Persons Name: TRISHA DUBON Name: APRIL MORELAND Name: APRIL MORELAND Care Team Personnel Name: ALICIA FAUSTIN GEOPHYSICAL OPERATOR-DIRECTOR REVENUE Position: P4 Advanced Practice Nurse Member Role: Primary Care Physician Address: Address: [address] [place] [address] Care Team Related Persons Name: TRISHA DUBON Name: APRIL MORELAND Name: APRIL MORELAND Source Comments (unrecognize d section and content) In the event this informatio n is protected by the Federal Confidentiality of Alcohol and Drug Abuse Patient Records regulations: The Federal rules restrict any use of the information to criminally investigate or prosecute any alcohol or drug abuse patient.[facility] the event this information is protected by the Federal Confidentiality of Alcohol and Drug Abuse Patient Records regulations: The Federal rules restrict any use of the information to criminally investigate or prosecute any alcohol or drug abuse patient.[facility] HospitalIn the event this information is protected by the Federal Confidentiality of Alcohol and Drug Abuse Patient Records regulations: The Federal rules restrict any use of the information to criminally investigate or prosecute any alcohol or drug abuse patient.[facility] Hospital[facility] the event this information is protected by the Federal Confidentiality of Alcohol and Drug Abuse Patient Records regulations: The Federal rules restrict any use of the information to criminally investigate or prosecute any alcohol or drug abuse patient.[facility] Care Teams (unrecognized sec tion and content) Superintendent Menagerie Relationship Specialty Start Date End Date Alicia Faustin [address] [place] [address] PCP - General Family Medicine 05/13/22 Team Status: Active Member Role Status Dates Alicia Faustin CIVIL ENGINEERING PROFESSIONAL, CIVIL ENGINEERING PROFESSIONAL-C Primary Care Provider Active Team Status: Inactive Member Role Status Dates Alicia Faustin CIVIL ENGINEERING PROFESSIONAL, CIVIL ENGINEERING PROFESSIONAL-C Primary Care Provider Active Dr. Yasmine Luevano MD Attending Provider, Referring Provider Active Team Status: Inactive Member Role Status Dates Alicia Faustin CIVIL ENGINEERING PROFESSIONAL, CIVIL ENGINEERING PROFESSIONAL-C Primary Care Provider, Other P giuliano Active Dr. Yasmine Luevano MD Attending Provider, Referring Provider Active Superintendent Menagerie Relationship Specialty Start Date End Date Alicia Faustin CNP [address] [place] [address] PCP - General Family Medicine 05/13/22 Superintendent Menagerie Relationship Specialty Start Date End Date Alicia Faustin CNP [address] [place] [address] PCP - General Family Medicine 05/13/22 Team Status: Inactive Member Role Status Dates Alicia Faustin CIVIL ENGINEERING PROFESSIONAL, CIVIL ENGINEERING PROFESSIONAL-C Primary Care Provider Active Start: November 10, 2024 End: November 10, 2024 Dr. Yasmine Luevano MD Attending Provider Active Start: November 10, 2024 End: November 10, 2024 Dr. Yasmine Luevano MD Referring Provider Active Start: November 10, 2024 End: November 10, 2024 Superintendent Menagerie Relationship Specialty Start Date End Date Alicia Faustin CNP [address] [place] [address] PCP - General Family Medicine 05/13/22 Goals (unrecognized section and content) Goals may be documented in a n alternate section INFORMATION SOURCE (unrecogn ized section and content) DATE CREATED AUTHOR 03/05/2024 [facility] ([place]) DATE CREATED AUTHOR AUTHOR'S ORGANIZ ATION 11/07/2024 [facility] DATE CREATED AUTHOR AUTHOR'S ORGANIZ ATION 05/21/2025 [facility] DATE CREATED AUTHOR AUTHOR'S ORGANIZ ATION 06/03/[address] [facility] Reason for Visit (unrecogniz ed section and [...] BE BASED ON THE PRIMARY CLINICAL RECORDS. [employer] provides no warranty or guarantee of the accuracy or completeness of information in this document.
[2025-07-29 10:15] LABS: Hematocrit 39.2 % (37-47); Hemoglobin 12.9 g/dL (12.0-15.0); Immature Granulocytes Count 0.020 X10^3/uL (0.0-0.0); Mean Corp Hgb Conc 32.9 g/dL (32-36); Mean Corpuscular Volume 89.7 fL (81-99); Mean Platelet Vol. 10.6 fl (6.2-12.0); NRBC Flagged by Analyzer 0 % (0-5); Platelet Count 233 K/mm3 (150-450); RBC Distribution Width CV 13.3 % (11.6-14.6); RBC Distribution Width SD 44.0 fl (35.1-43.9); Red Blood Count 4.37 M/mm3 (4.2-5.4); White Blood Count 6.5 K/mm3 (4.4-11.0)
[2025-07-29 10:41] LABS: AST(SGOT) 23 U/L (<=31); Alanine Aminotransfer ALT/SGPT 18 U/L (<=34); Albumin, Serum 4.2 g/dL (3.4-4.8); Alkaline Phosphatase 129 U/L (35-104); Anion Gap 12 (7-18); BUN 16 mg/dL (4-19); BUN/Creat Ratio 17.1 RATIO (10-20); Calcium,Total 9.6 mg/dL (7.6-11.0); Carbon Dioxide 26.9 mmol/L (20.0-29.0); Chloride 105 mmol/L (96-106); Globulin 2.3 g/dL (2.2-4.2); Glucose 83 mg/dL (70-99); Potassium 3.5 mmol/L (3.5-5.1)
== END | disposition home or self-care (01) ==
LOC: MTLAB 08:07
PROVIDERS: PCP Nurse Practitioner Primary Care; Referring Provider Internal Medicine Rheumatology; Visit Provider Internal Medicine Rheumatology
DX: M06.4 Inflammatory polyarthropathy (principal); Z79.899 Other long term (current) drug therapy
CPT/HCPCS: 36415; 80053; 85025